=== PATIENT | female | born 1930 | race Caucasian/White ===

== ENCOUNTER 2016-05-11 12:49 | Emergency (ER) | payer OTHER, MEDICARE ==
[2016-05-11 13:04] VITALS: TEMP 97.9; BMI 30.2
[2016-05-11] MEDS ORDERED: ASPIRIN 81 MG CHEWABLE TABLETS PO ONE (13:18)
--- NOTE | 2016-05-11 13:22 | PDOC ---
History of Present Illness - General Chief Complaint: Chest Pain Stated Complaint: CHEST PAIN Time Seen by Provider: 05/11/16 13:17 - History of Present Illness Initial Comments: 05/11/16 13:24 Patient is an 86 year old female with underlying history of moderate obstructive CAD, HTN, basal cell CA, melanoma, history of multiple hip surgeries and hypothyroidism who presents to ED today complaining of chest pain that started around 2-3 hours ago. The pain is mid sternal, radiating to left upper extremity, it is constant, 8-9/10, no alleviating/aggravating factors, associated with diaphoresis. The pt has never had pain like that in the past. She denies trauma, fever, chills. She denies SOB, cough She denies abdominal pain, N/V, constipation, diarrhea. She denies dysuria, increased frequency, urgency. She denies lightheadedness, LOC. PCP: DR. Bere Evans Past History - Past Medical History Allergies/Adverse Reactions: Allergies Allergy/AdvReac Type Severity Reaction Status Date / Time codeine [Codeine] Allergy "TIGHTENING Verified 05/11/16 13:04 IN THROAT" meperidine HCl [From Demerol] Allergy "TIGHTENING Verified 05/11/16 13:04 IN THROAT" Home Medications: Ambulatory Orders Amitriptyline HCl [Elavil -] 25 mg PO TID 05/11/16 Diltiazem Cd [Cardizem Cd -] 240 mg PO DAILY 05/11/16 Levothyroxine [Synthroid -] 75 mcg PO DAILY 05/11/16 Olmesartan/Hydrochlorothiazide [Benicar Hct 20-12.5 mg Tablet] 1 each PO DAILY 05/11/16 Oxycodone HCl/Acetaminophen [Percocet 10-325 mg Tablet] 1 each PO Q4H PRN Tramadol HCl [Ultram] 50 mg PO Q4H 05/11/16 Anemia: Yes (IRON DEF) Asthma: No Cancer: Yes (MELENOMA) Cardiac Disorders: No CVA: No COPD: No CHF: No Dementia: No Diabetes: No GI Disorders: Yes (HIATAL HERNIA) Disorders: No HTN: Yes Hypercholesterolemia: No Liver Disease: No Seizures: No Thyroid Disease: Yes (HYPO) - Surgical History Abdominal Surgery: No Appendectomy: No Cardiac Surgery: No Cholecystectomy: No Lung Surgery: No Neurologic Surgery: No Orthopedic Surgery: Yes (LT HIP SX X2, RT HIP SX) - Psycho/Social/Smoking Cessation Hx Anxiety: No Suicidal Ideation: No Smoking Status: No Smoking History: Never smoked Number of Cigarettes Smoked Daily: 0 Information on smoking cessation initiated: No Hx Alcohol Use: No Drug/Substance Use Hx: No Substance Use Type: None Review of Systems - Review of Systems Able to Perform ROS?: Yes Comments:: 05/11/16 13:51 REVIEW OF SYSTEMS CONSTITUTIONAL: diaphoresis Absent: fever, chills, generalized weakness, malaise, loss of appetite, weight change HEENT: Absent: rhinorrhea, nasal congestion, throat pain, throat swelling, difficulty swallowing CARDIOVASCULAR: chest pain Absent: syncope, palpitations, irregular heart rate, lightheadedness, peripheral edema RESPIRATORY: Absent: cough, shortness of breath, dyspnea with exertion, orthopnea, wheezing GASTROINTESTINAL: Absent: abdominal pain, abdominal distension, nausea, vomiting, diarrhea, constipation GENITOURINARY: Absent: dysuria, frequency, urgency, hesitancy, hematuria, flank pain, genital pain MUSCULOSKELETAL: Absent: myalgia, arthralgia, joint swelling, back pain, neck pain SKIN: Absent: rash, itching, pallor HEMATOLOGIC/IMMUNOLOGIC: Absent: easy bleeding, easy bruising, lymphadenopathy, frequent infections ENDOCRINE: Absent: unexplained weight gain, unexplained weight loss, heat intolerance, cold intolerance NEUROLOGIC: Absent: headache, focal weakness or paresthesias, dizziness, unsteady gait, seizure PSYCHIATRIC: Absent: anxiety, depression Is the patient limited Samoan proficient: No *Physical Exam - Vital Signs Last Vital Signs Temp Pulse Resp BP Pulse Ox 97.9 F 92 H 18 160/84 95 05/11/16 13:01 05/11/16 13:01 05/11/16 13:01 05/11/16 13:01 05/11/16 13:01 - Physical Exam Comments: 05/11/16 14:27 GENERAL: The patient is awake, alert, and fully oriented, in no acute distress. HEAD: Normal with no signs of trauma. EYES: extraocular movements intact, sclera anicteric, conjunctiva clear. ENT: oropharynx clear without exudates, moist mucous membranes. NECK: Trachea midline, full range of motion, supple. LUNGS: Breath sounds equal, clear to auscultation bilaterally, no wheezes, no crackles, no accessory muscle use. HEART: Regular rate and rhythm, S1, S2 without murmur, rub or gallop. ABDOMEN: Soft, mild epigastric tenderness, nondistended, normoactive bowel sounds, no guarding, no rebound, no hepatosplenomegaly, no masses. EXTREMITIES: 2+ pulses, warm, well-perfused, no edema. NEUROLOGICAL: Normal speech, no facial asymmetry, gait not observed. PSYCH: Normal mood, normal affect. SKIN: Warm, dry, normal turgor, no rashes. Heart Score/ECG Review - History History: Moderately suspicious - Electrocardiogram EKG: Normal - Age Age: >/= 65 - Risk Factors Risk Factors Heart Score: Yes Hx Hypertension Based on the list above the patient has:: 1-2 risk factors - Troponin Troponin: </= normal limit - Score Heart Score - Total: 4 ED Treatment Course - LABORATORY CBC & Chemistry Diagram: 05/11/16 13:23 05/11/16 13:23 Medical Decision Making - Medical Decision Making 05/11/16 13:52 The pt is a 86 year old female who presents to ED complaining of chest pain. Differential diagnosis include: ACS, GERD, costochondritis. We ordered cardiac profile, CBC, CMP,UA, CXR, Mg, Oxygen, Aspirin. 05/11/16 14:22 Labs reviewed, elevated BUN, no elevated troponin. EKG: NSR at rate 90 bpm, no stacie/std, no NH prolongation, left axis deviation, QTC 415. CXR: no acute pathology. The pt requested pain medications for chronic hip pain. Percocet 5 mg was given. 05/11/16 14:53 We contacted who recommended obs-telemetry. We also ordered second troponin. 05/11/16 15:05 Contacted by again. He recommended to discharge the pt and f/u in his office tomorrow. 05/11/16 15:08 We recommend that the pt will stay in ED for the next troponin AT 16:30 05/11/16 17:59 Second troponin is negative. The pt is discharged home. *DC/Admit/Observation/Transfer Diagnosis at time of Disposition: Chest pain - Discharge Dispostion Condition at time of disposition: Good Admit: No - Referrals Referrals: Nathan Blackburn MD [Primary Care Provider] - - Patient Instructions Additional Instructions: Please see Dr. Blackburn tomorrow. If your symptoms worsen come back to emergency room as soon as possible.
[2016-05-11] MEDS ORDERED: ASPIRIN 81 MG CHEWABLE TABLETS ONE (13:38)
[2016-05-11 13:45] LABS: BASOPHIL 0.3 % (0-2.0); EOSINOPHIL 1.9 % (0-4.5); MCH 26.4 pg (25.7-33.7); MCHC 32.7 g/dl (32.0-36.0); MEAN CELL VOLUME 80.6 fl (80-96); MEAN PLT VOLUME 7.9 fl (7.5-11.1); NEUTROPHILS 69.4 % (42.8-82.8); PLATELET COUNT 304 K/MM3 (134-434); RDW 16.4 % (11.6-15.6); WHITE BLOOD COUNT 8.1 K/mm3 (4.0-10.0)
[2016-05-11] MEDS ORDERED: OXYCODONE/APAP 5/325MG COMBO TABLET PO ONE ×2 (13:56→14:59)
[2016-05-11 13:57] LABS: ANION GAP 11 (8-16); BILIRUBIN,TOTAL 0.3 mg/dL (0.2-1.0); CALCIUM 9.3 mg/dL (8.5-10.1); CO2 28 mmol/L (21-32); CREATININE 0.7 mg/dL (0.55-1.02); GLUCOSE,RANDOM 109 mg/dL (74-106); SGOT/AST 20 U/L (15-37); SGPT/ALT 24 U/L (12-78); TOT PROT 8.5 g/dl (6.4-8.2)
[2016-05-11 14:00] LABS: ALK PHOS 106 U/L (45-117); INR 0.99 (0.82-1.09); PROTHROMBIN TIME (PATIENT) 10.9 SEC (9.98-11.88); TROPONIN I < 0.02 ng/ml (0.00-0.05)
[2016-05-11] MEDS ORDERED: OXYCODONE/APAP 5/325MG COMBO TABLET ONE ×2 (14:03→15:40)
--- NOTE | 2016-05-11 14:09 | PDOC ---
Attending Attestation - Resident Resident Name: Janna Parmar - ED Attending Attestation I have performed the following: I have examined & evaluated the patient, The case was reviewed & discussed with the resident, I agree w/resident's findings & plan - HPI HPI: 05/11/16 15:19 86y F hx of moderately obstructive CAD, htn, basal cell ca, melanoma, multiple hip surgeries presents with chest pain that started approx 10:30, described as pressure like midsternal radiating to the LUE associated with some diaphoersis. Pt denies any n/v, sob, recent exertional symptoms. Pt notes she has had cath in the past but did not have any stents placed. Pts ekg showed a NSR. Pts trop x 1 is negative. Pt does not want to stay for observation - after extensive discussion she agreed to stay for a 2nd troponin at 4:30 (~6 hrs after onset of pain) if trop negative, will hav ept fu with dr. Hill as an outpatient. will continue cardiac monitiring here in the ED. Pts HEART score is 3 - Physicial Exam PE: 05/12/16 20:11 see above - Medical Decision Making 05/12/16 20:11 see above Heart Score/ECG Review - History History: Slightly suspicious - Electrocardiogram EKG: Normal - Age Age: >/= 65 - Risk Factors Risk Factors Heart Score: Yes Hx Hypertension Based on the list above the patient has:: 1-2 risk factors - Troponin Troponin: </= normal limit - Score Heart Score - Total: 3 - ECG Impressions Comment:: 05/11/16 15:23 Twelve-lead EKG was performed and reviewed by me. There is normal sinus rhythm with a normal rate. Rate of 90 The axis is normal. The intervals are normal. There is normal R wave progression There are no ST or T wave abnormalities. Impression: Normal twelve-lead EKG
[2016-05-11 18:11] VITALS: BP 155/88; PULSE 73
--- NOTE | 2016-05-12 17:38 | EKG ---
Test Reason : Blood Pressure : / mmHG Vent. Rate : 090 BPM Atrial Rate : 090 BPM P-R Int : 162 ms QRS Dur : 076 ms QT Int : 340 ms P-R-T Axes : 060 -04 041 degrees QTc Int : 415 ms NORMAL SINUS RHYTHM NORMAL ECG WHEN COMPARED WITH ECG OF 03-JAN-2014 20:28, NO SIGNIFICANT CHANGE WAS FOUND Confirmed by MELECIO MEDEROS MD ([id number]) on 05/12/2016 5:38:30 PM Referred By: Confirmed By:MELECIO MEDEROS MD
== END 2016-05-11 18:10 | disposition home or self-care (01) ==
LOC: JER 12:49
DX: R07.89 Other chest pain (principal); I25.10 Atherosclerotic heart disease of native coronary artery without angina pectoris; I10 Essential (primary) hypertension; E03.9 Hypothyroidism, unspecified; Z85.820 Personal history of malignant melanoma of skin
CPT/HCPCS: 36415; 71010-TC; 80053; 82550; 83735; 84484; 85025; 85610; 93005; 93010; 99284-25

== ENCOUNTER 2017-09-24 17:03 | Inpatient (IN) | payer OTHER, MEDICARE ==
--- NOTE | 2017-09-24 17:25 | PDOC ---
History of Present Illness <Danitza Hanna - Last Filed: 09/24/17 22:27> - History of Present Illness Initial Comments: The patient is an 87F with a history of HTN, hypothroidism, and diverticulosis who presents with 1d of N/V with associated diffuse achy/cramping abdominal pain that is worse in the upper abdomen. The pain reportedly radiates around her left flank towards her back. She endorses chronic back pain; however, this pain is different than her chronic pain. She also endorses chest pain 'across her chest' that does not radiate. She endorses subjective fevers. Denies diarrhea, dysuria, blood in her urine or stool. She denies changes in sensation. 09/24/17 18:06 <Logan Bustillos - Last Filed: 09/25/17 02:30> - General Stated Complaint: VOMITING Time Seen by Provider: 09/24/17 17:24 Past History <Danitza Hanna - Last Filed: 09/24/17 22:27> - Past Medical History Anemia: Yes (IRON DEF) Asthma: No Cancer: Yes (MELENOMA) Cardiac Disorders: No CVA: No COPD: No CHF: No Dementia: No Diabetes: No GI Disorders: Yes (HIATAL HERNIA) Disorders: No HTN: Yes Hypercholesterolemia: No Liver Disease: No Seizures: No Thyroid Disease: Yes (HYPO) - Surgical History Abdominal Surgery: No Appendectomy: No Cardiac Surgery: No Cholecystectomy: No Lung Surgery: No Neurologic Surgery: No Orthopedic Surgery: Yes (LT HIP SX X2, RT HIP SX) - Suicide/Smoking/Psychosocial Hx Smoking Status: No Smoking History: Never smoked Number of Cigarettes Smoked Daily: 0 Hx Alcohol Use: No Drug/Substance Use Hx: No Substance Use Type: None <Logan Bustillos - Last Filed: 09/25/17 02:30> - Past Medical History Allergies/Adverse Reactions: Allergies Allergy/AdvReac Type Severity Reaction Status Date / Time No Known Allergies Allergy Verified 09/24/17 18:26 Home Medications: Ambulatory Orders Levothyroxine Sodium [Levoxyl] 75 mcg PO DAILY 09/24/17 Oxycodone HCl/Acetaminophen [Percocet 5-325 mg Tablet] 1 tab PO Q6H 09/24/17 Review of Systems - Review of Systems Able to Perform ROS?: Yes Comments:: GENERAL/CONSTITUTIONAL: No fever or chills. No weakness HEAD, EYES, EARS, NOSE AND THROAT: No change in vision. No ear pain or discharge. No sore throat CARDIOVASCULAR: +chest pain; Denies SOB RESPIRATORY: No cough, wheezing, or hemoptysis GASTROINTESTINAL: per HPI GENITOURINARY: No dysuria, frequency, or change in urination MUSCULOSKELETAL: +Chronic back and hip pain SKIN: No rash NEUROLOGIC: No headache, vertigo, loss of consciousness, or change in strength/ sensation ENDOCRINE: No increased thirst. No abnormal weight change HEMATOLOGIC/LYMPHATIC: No anemia, easy bleeding, or history of blood clots ALLERGIC/IMMUNOLOGIC: No hives or skin allergy 09/24/17 18:14 Is the patient limited Macanese proficient: No <Logan Bustillos - Last Filed: 09/25/17 02:30> *Physical Exam - Vital Signs Last Vital Signs Temp Pulse Resp BP Pulse Ox 99.1 F 95 H 18 188/91 100 09/24/17 17:38 09/24/17 17:38 09/24/17 17:38 09/24/17 17:38 09/24/17 17:38 <Danitza Hanna - Last Filed: 09/24/17 22:27> - Physical Exam Comments: GENERAL: Awake, alert, and fully oriented, mild distress 2/2 pain HEAD: No signs of trauma, normocephalic, atraumatic EYES: PERRL, EOMI, b/l glaucoma, conjunctiva clear ENT: nares patent, oropharynx clear without exudates. Moist mucosa NECK: Normal ROM, supple, no lymphadenopathy LUNGS: No distress, speaks full sentences, clear to auscultation bilaterally HEART:Regular rate and rhythm, normal S1 and S2, no murmurs appreciated, peripheral pulses normal and equal bilaterally ABDOMEN: Diffuse TTP worse over upper abdomen with guarding, no rebound, mild distention. Not peritonitic. Normoactive bowel sounds. EXTREMITIES : Normal inspection, Normal range of motion, no edema. No clubbing or cyanosis NEUROLOGICAL: Cranial nerves II through XII grossly intact. Normal speech, no focal sensorimotor deficits SKIN: Warm, Dry, normal turgor 09/24/17 18:11 <Logan Bustillos - Last Filed: 09/25/17 02:30> ED Treatment Course - LABORATORY CBC & Chemistry Diagram: 09/24/17 18:16 09/24/17 18:16 - ADDITIONAL ORDERS Additional order review: Laboratory Results 09/24/17 09/24/17 09/24/17 21:50 18:16 18:16 Sodium 138 Potassium 4.3 Chloride 102 Carbon Dioxide 22 Anion Gap 14 BUN 23 H Creatinine 1.1 H Creat Clearance w eGFR 46.98 Random Glucose 189 H Calcium 9.9 Total Bilirubin 0.8 AST 22 ALT 20 Alkaline Phosphatase 88 Troponin I < 0.02 Total Protein 9.3 H Albumin 4.3 Lipase 55 L Urine Color Yellow Urine Appearance Clear Urine pH 5.0 Ur Specific [place] > 1.060 H Urine Protein 2+ H Urine Glucose (UA) Negative Urine Ketones Negative Urine Blood 1+ H Urine Nitrite Negative Urine Bilirubin Negative Urine Urobilinogen Negative Ur Leukocyte Esterase Negative Urine WBC (Auto) None Urine RBC (Auto) 3 Ur Epithelial Cells Rare 09/24/17 18:16 RBC 5.10 MCV 88.5 MCHC 33.5 RDW 13.2 D MPV 7.5 - Medications Given in the ED: ED Medications Discontinued Medications Generic Name Dose Route Start Last Admin Trade Name Montrellq PRN Reason Stop Dose Admin Acetaminophen 1,000 mg 09/24/17 17:38 09/24/17 18:25 Ofirmev Injection - IVPB 09/24/17 17:39 1,000 mg ONCE ONE Administration Morphine Sulfate 4 mg 09/24/17 17:53 09/24/17 18:25 Morphine Injection - IVPUSH 09/24/17 17:54 4 mg ONCE ONE Administration Ondansetron HCl 4 mg 09/24/17 17:38 09/24/17 18:25 Zofran Injection IVPUSH 09/24/17 17:39 4 mg ONCE ONE Administration Sodium Chloride 1,000 ml 09/24/17 17:38 09/24/17 18:25 Normal Saline - IV 09/24/17 17:39 1,000 ml ONCE ONE Administration <Danitza Hanna - Last Filed: 09/24/17 22:27> - LABORATORY CBC & Chemistry Diagram: 09/24/17 18:16 09/24/17 18:16 <Logan Bustillos - Last Filed: 09/25/17 02:30> Medical Decision Making - Medical Decision Making The patient is an 87F with a history of HTN, ED Course CMP, CBC, UA, UCx ECG, CT A&P RUQ POCUS 09/24/17 18:15 Trop I negative 09/24/17 19:42 Patient with continued N/V despite meds NGT placed Surgery Consulted, spoke with Dr. Carednas Plan for admission to Hospitalist Dispo: Admit to Hospitalist for SBO/PO intolerance 09/25/17 01:43 Repeat lactate 09/25/17 02:27 09/25/17 02:29 09/25/17 02:29 <Logan Bustillos - Last Filed: 09/25/17 02:30> *DC/Admit/Observation/Transfer - Discharge Dispostion Decision to Admit order: Yes <Danitza Hanna - Last Filed: 09/24/17 22:27> - Discharge Dispostion Decision to Admit order: Yes <Logan Bustillos - Last Filed: 09/25/17 02:30> Diagnosis at time of Disposition: Small bowel obstruction Abdominal pain Qualifiers: Abdominal location: generalized Qualified Code(s): R10.84 - Generalized abdominal pain - Discharge Dispostion Condition at time of disposition: Guarded
[2017-09-24] MEDS ORDERED: SODIUM CHLORIDE 0.9% 500 ML INFUS.BAG IV ONE ×2 (17:38→23:30)
[2017-09-24] MEDS ORDERED: ACETAMINOPHEN 1000 MG/100 ML VIAL (NON FORMULARY) IVPB ONE (17:38)
[2017-09-24] MEDS ORDERED: ONDANSETRON 4 MG/2 ML VIAL IVPUSH ONE ×2 (17:38→23:18)
[2017-09-24] MEDS ORDERED: morphine CARPU-JECT 4 MG/1 ML DISP.SYRIN IVPUSH ONE (17:53)
[2017-09-24] MEDS ORDERED: morphine SULFATE 4 MG/ML VIAL ONE (18:16)
[2017-09-24] MEDS ORDERED: ONDANSETRON 4 MG/2 ML VIAL ONE ×2 (18:17→23:38)
[2017-09-24] MEDS ORDERED: ACETAMINOPHEN INJECTION 100 ML IVPB ONE (18:17)
[2017-09-24 18:36] LABS: HEMATOCRIT 45.1 % (32.4-45.2); HEMOGLOBIN 15.1 GM/dL (10.7-15.3); MCH 29.6 pg (25.7-33.7); MCHC 33.5 g/dl (32.0-36.0); MEAN CELL VOLUME 88.5 fl (80-96); MEAN PLT VOLUME 7.5 fl (7.5-11.1); PLATELET COUNT 421 K/MM3 (134-434); RDW 13.2 % (11.6-15.6); WHITE BLOOD COUNT 12.8 K/mm3 (4.0-10.0)
[2017-09-24 19:07] LABS: ALBUMIN 4.3 g/dl (3.4-5.0); ALK PHOS 88 U/L (45-117); ANION GAP 14 (8-16); BILIRUBIN,TOTAL 0.8 mg/dL (0.2-1.0); BLOOD UREA NITROGEN 23 mg/dL (7-18); CALCIUM 9.9 mg/dL (8.5-10.1); CHLORIDE 102 mmol/L (98-107); CO2 22 mmol/L (21-32); CREATININE 1.1 mg/dL (0.55-1.02); GLUCOSE,RANDOM 189 mg/dL (74-106); LIPASE 55 U/L (73-393); POTASSIUM 4.3 mmol/L (3.5-5.1); SGOT/AST 22 U/L (15-37); SGPT/ALT 20 U/L (12-78); SODIUM 138 mmol/L (136-145); TOT PROT 9.3 g/dl (6.4-8.2)
--- NOTE | 2017-09-24 19:38 | PDOC ---
Attending Attestation - Resident Resident Name: [employer] - ED Attending Attestation I have performed the following: I have examined & evaluated the patient, The case was reviewed & discussed with the resident, I agree w/resident's findings & plan, Exceptions are as noted - HPI HPI: 09/24/17 19:32 87 yo F with h/o htn, diverticulosis, cholelithiasis here with c/o epigastric pain, n/v. pt has thrown up multiple times today. no f/c however felt warm. no urinary complaints. no mod factors, all emesis was bilious in color. also c/o abd distension. - Physicial Exam PE: 09/24/17 19:34 awake alert lungs clear bilaterally heart rrr no mrg. abd with mild distension, epigastric ttp. no rebound on guarding. skin warm and dry. - Medical Decision Making 09/24/17 19:35 87 yo F h/o HTN here with n/v abd pain. ttp on epigastric region and distension on exam. differential: cholecysitis, biliary colic, obstruction, pancreatitis, gastritis , infection such as uti, secondary dehydration. atypical angina. labs lipase ct a/p bedside us ruq, cxr ekg. antiemetics, iv hydration. pt will likley require admission for intractable .vomiting. focused ED ultrasound RUQ indication : h/o stones, pain r/o cholecystitis gallbladder scanned in two planes. limited finding due to body habitus. several gallstones noted. no percholecystic fluid, no wall thickening or edema. neg sonographic bautista's. cbd was 6.1 mm. impression: cholelithiasis.
[2017-09-24 22:00] LABS: URINE APPEARANCE CLEAR; URINE BILIRUBIN NEGATIVE (<2.0 mg/dL); URINE COLOR YELLOW; URINE GLUCOSE (UA) NEGATIVE (NEGATIVE); URINE KETONE NEGATIVE (NEGATIVE); URINE LEUK ESTERASE NEGATIVE (NEGATIVE); URINE NITRITE NEGATIVE (NEGATIVE); URINE UROBILINOGEN NEGATIVE mg/dL (0.2-1.0)
[2017-09-24 22:03] LABS: URINE PROTEIN 2+ (NEGATIVE)
[2017-09-24 22:04] LABS: EPI CELLS RARE /HPF (FEW)
--- NOTE | 2017-09-25 00:37 | PN ---
Teaching Attending Note Name of Resident: Lane Landeros ATTENDING PHYSICIAN STATEMENT I saw and evaluated the patient. I reviewed the resident's note and discussed the case with the resident. I agree with the resident's findings and plan as documented. SUBJECTIVE: Patient is an 87 year old woman with a history of HTN, hiatal hernia, bilateral hip replacement, basal cell cancer, melanoma, hypothroidism, and diverticulosis who presents with one day of abdominal pain, nausea and vomiting. Pain is diffuse, achy/cramping that is worse in the upper abdomen. The pain reportedly radiates around her left flank towards her back. She has chronic back pain; however, this pain is different than her chronic pain. She also has chest pain 'across her chest' that does not radiate as well as subjective fevers. Denies diarrhea, dysuria, blood in her urine or stool. OBJECTIVE: Alert Vital Signs Period Temp Pulse Resp BP Sys/Glass Pulse Ox Last 24 Hr 99.1 F 95 18 188/91 100 HEENT: No Jaundice, eye redness or discharge, PERRLA, EOMI. Normocephalic, atraumatic. External ears are normal and hearing is grossly intact. No nasal discharge. Neck: Supple, nontender. No palpable adenopathy or thyromegaly. No JVD Chest: Good effort. Clear to auscultation and percussion. Heart: Regular. No S3, rub or murmur Abdomen: Not distended, soft, upper abdominal tenderness and no HSM. No rebound or guarding. Normoactive bowel sounds. Ext: Peripheral pulses intact. No leg edema. Skin: Warm and dry. No petechiae, rash or ecchymosis. Neuro: Alert. Oriented x3. CN 2-12 grossly intact. Sensation grossly intact in all four extremities and DTR are symmetric. Home Medications Medication Instructions Recorded Levothyroxine Sodium [Levoxyl] 75 mcg PO DAILY 09/24/17 Oxycodone HCl/Acetaminophen 1 tab PO Q6H 09/24/17 [Percocet 5-325 mg Tablet] Abnormal Lab Results 09/24/17 09/24/17 09/24/17 18:16 18:16 18:16 WBC 12.8 H BUN 23 H Creatinine 1.1 H Random Glucose 189 H Lactic Acid Total Protein 9.3 H Lipase 55 L Ur Specific [place] Urine Protein Urine Blood 09/24/17 09/24/17 21:50 22:35 WBC BUN Creatinine Random Glucose Lactic Acid 2.6 H* Total Protein Lipase Ur Specific [place] > 1.060 H Urine Protein 2+ H Urine Blood 1+ H ASSESSMENT AND PLAN: 1. Small bowel obstruction - CT abdomen shows SBO, cholelithiasis and hepatic steatosis. No more vomiting. Significance of associated lactic acidosis and mild leukocytosis is unclear. Will do sepsis work up. Treat hypertension with IV hydralazine, give 0.45% Nacl and repeat CBC and lactic acid. If lactic acidosis and leukocytosis do not improve will start empiric antibiotics coverage for gall bladder/biliary infection. Surgery being consulted. 2. MEL - Very high urine SG suggests dehydration. Will hydrate gently. Avoid nephrotoxic agents such as NSAIDS, aminoglycosides, contrast dyes and certain Alternative medicine products. 3. DVT prophylaxis - Heparin 5000u sq tid. 4. Advance directives - Full code
[2017-09-25] MEDS ORDERED: SODIUM CHLORIDE 0.45% 1,000 ML IV SCH ×2 (01:30→05:30)
--- NOTE | 2017-09-25 01:36 | CONSULT ---
Consult Consult Specialty:: General surgery Reason for Consultation:: abdominal pain and vomiting - History of Present Illness Chief Complaint: Abdominal Pain History of Present Illness: 87yo female PMH HTN, hypothroidism, and diverticulosis who presents with 1 day of nausea and vomiting per her son. This was associated diffuse achy/cramping abdominal pain that is worse in the upper abdomen. She complains of Left lower quadrant pain when assessed. The pain reportedly radiates around her left flank towards her back. She endorses chronic back pain she is on pain medication for ; however, this pain is different than her chronic pain. She also endorses chest pain 'across her chest' that does not radiate. She endorses subjective fevers. Denies diarrhea, dysuria, blood in her urine or stool. She denies changes in sensation. She does not have a daily bowel movement. We were asked to assess. 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 No: Dementia, Migraine, Seizure, TIA Cardio/Vascular: Yes: CAD, HTN Gastrointestinal: Yes: Constipation. No: Cancer, Esophageal Varices, Pancreatitis Psych: Yes: Anxiety Musculoskeletal: Yes: Chronic low back pain, Osteoarthritis, Other (chronic hip pain post replacement and is opiate dependant.) - Alcohol/Substance Use Hx Alcohol Use: No - Smoking History Smoking history: Never smoked Aproximately how many cigarettes per day: 0 Home Medications - Allergies Allergies/Adverse Reactions: Allergies Allergy/AdvReac Type Severity Reaction Status Date / Time No Known Allergies Allergy Verified 09/24/17 18:26 - Home Medications Home Medications: Ambulatory Orders Levothyroxine Sodium [Levoxyl] 75 mcg PO DAILY 09/24/17 Oxycodone HCl/Acetaminophen [Percocet 5-325 mg Tablet] 1 tab PO Q6H 09/24/17 Review of Systems - Review of Systems Constitutional: denies: Chills, Fever Eyes: denies: Double Vision, Recent Change in Vision HENT: denies: Ear Discharge, Epistaxis Neck: denies: Lumps, Pain on Movement, Swollen Glands Cardiovascular: denies: Chest Pain, Palpitations Respiratory: denies: Cough, SOB Breasts: reports: No Symptoms Reported. denies: Pain Musculoskeletal: denies: Muscle Pain, Muscle Weakness Integumentary: denies: Erythema, Pallor, Rash Neurological: denies: Seizure, Syncope Endocrine: denies: Unexplained Weight Gain, Unexplained Weight Loss Hematology/Lymphatic: denies: Easily Bruised, Excessive Bleeding Psychiatric: denies: Anxiety, Depression Physical Exam Vital Signs: Vital Signs Temperature 100 F H 09/25/17 01:18 Pulse Rate 109 H 09/25/17 01:18 Respiratory Rate 21 09/25/17 01:18 Blood Pressure 198/90 09/25/17 01:18 O2 Sat by Pulse Oximetry (%) 100 09/24/17 17:38 Vital Signs Period Temp Pulse Resp BP Sys/Glass Pulse Ox Last 24 Hr 99.1 F-100 F 95-112 16-21 170-198/78-92 95-100 Constitutional: Yes: Well Nourished, No Distress, Calm Eyes: Yes: Conjunctiva Clear, EOM Intact HENT: Yes: Atraumatic, Normocephalic Neck: Yes: Supple, Trachea Midline Cardiovascular: Yes: Regular Rate and Rhythm, S1, S2 Respiratory: Yes: Regular, CTA Bilaterally Gastrointestinal: Yes: Normal Bowel Sounds, Soft. No: Tenderness, Tenderness, Epigastrium, Tenderness, Rebound ...Rectal Exam: Yes: Hemorrhoids/External, Sphincter Tone Normal, Other (pasty brown stool. some burdon removed and no blood noted.). No: Erythema, Mass Renal/: No: CVA Tenderness - Left, CVA Tenderness - Right Extremities: No: Cool, Cyanosis Neurological: Yes: Alert, Oriented Psychiatric: Yes: Alert, Oriented Labs: CBC, BMP 09/24/17 18:16 09/24/17 18:16 Imaging - Results X-ray: Report Reviewed, Image Reviewed Cat Scan: Report Reviewed, Image Reviewed (large hiatal hernia, no obstrting lession mid to distal SBO) Problem List - Problems (1) Small bowel obstruction Assessment/Plan: 87 yo female MMP with chronic constipation and fecal impaction of recto sigmoid. She will not likely require surgical intervention but would benefit from a manual disimpaction and an effective bowel regimen. Agree with transfer to ICU NPO and IVF hydration HOB to 30deg NGT decompression prn GI evaluation for endoscopy Adequate analgesia (preferably non-narcotic) enemas trend labs and correct electrolytes Serial abdominal exams Repeat abdominal xray tomorrow will follow This patient is in guarded but stable condition. Time spent reviewing chart, examining patient, talking with providers and/or family and documentation is 35 minutes. Thank you for the opportunity to participate in the care of this patient. 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
[2017-09-25] MEDS ORDERED: morphine SULFATE 4 MG/ML VIAL IVPUSH ONE (01:38)
--- NOTE | 2017-09-25 01:40 | HP ---
CHIEF COMPLAINT: nausea/vomiting associated with abdominal pain PCP: HISTORY OF PRESENT ILLNESS: 87F w/ pmhx of b/l hip surgeries, hypothyroidism, HTN, hiatal hernia, basal cell cancer, melanoma, and diverticulosis presented with a 1 day history of diffuse abdominal pain associated with nausea and vomiting. Pt states pain is worse in the upper abdomen. During exam, pt was lethargic and history was difficult to obtain. Pt repeatedly mentioned not wanting to undergo any more procedures per Dr. Nixon's request. Pt persistently complained of abdominal pain. ER course was notable for: (1)IV Morphine 4mg, Tylenol, Ibuprofen, Zofran (2) CTAP showed SBO (3) Recent Travel: PAST MEDICAL HISTORY: PAST SURGICAL HISTORY: Social History: Smoking: Alcohol: Drugs: Family History: Allergies No Known Allergies Allergy (Verified 09/24/17 18:26) HOME MEDICATIONS: Home Medications Medication Instructions Recorded Levothyroxine Sodium [Levoxyl] 75 mcg PO DAILY 09/24/17 Oxycodone HCl/Acetaminophen 1 tab PO Q6H 09/24/17 [Percocet 5-325 mg Tablet] REVIEW OF SYSTEMS CONSTITUTIONAL: Absent: fever, chills, diaphoresis, generalized weakness, malaise, CARDIOVASCULAR: Absent: chest pain, syncope, palpitations, irregular heart rate RESPIRATORY: Absent: cough, shortness of breath, dyspnea with exertion, orthopnea, wheezing, stridor, hemoptysis GASTROINTESTINAL: persisent generalized abdominal pain with distension, nausea, vomiting Absent: diarrhea, constipation, melena, hematochezia GENITOURINARY: L flank pain Absent: dysuria, frequency, urgency, hesitancy, hematuria, genital pain SKIN: Absent: rash, itching, pallor NEUROLOGIC: Absent: headache, focal weakness or paresthesias, dizziness, unsteady gait, seizure, mental status changes, bladder or bowel incontinence PHYSICAL EXAMINATION Active Medications Heparin Sodium (Porcine) (Heparin -) 5,000 unit SQ BID SCHHydralazine HCl ( Apresoline Injection -) 5 mg IVPUSH Q6H PRN PRN Reason: HYPERTENSION Last Admin: 09/25/17 03:05 Dose: 5 mg Sodium Chloride (1/2 Normal Saline) 1,000 mls @ 75 mls/hr IV ASDIR JN Levothyroxine Sodium (Synthroid Injection -) 37.5 mcg IVPUSH DAILY JN Vital Signs - 24 hr 09/24/17 09/25/17 17:38 01:18 Temperature 99.1 F 100 F H Pulse Rate 95 H Pulse Rate [ 109 H Right Brachial] Respiratory 18 21 Rate Blood Pressure 188/91 Blood Pressure 198/90 [Right Arm] O2 Sat by Pulse 100 Oximetry (%) GENERAL: AAOx3. Moderate distress. HEENT: AT/NC. Dry. NECK: supple without lymphadenopathy, JVD, or masses. LUNGS: Clear to auscultation anteriorly. Unable to auscultate posteriorly as patient is uncooperative due to pain. HEART: Tachycardic. Normal S1, S2. No murmurs, rubs, gallop noted. ABDOMEN: Widely distended, tender. -BS. MUSCULOSKELETAL: No peripheral edema noted. UPPER EXTREMITIES: 2+ pulses, warm, well-perfused. No cyanosis. No clubbing. Unable to assess muscle strength. LOWER EXTREMITIES: 2+ pulses, warm, well-perfused. No calf tenderness. Unable to assess muscle strength. NEUROLOGICAL: Normal speech. SKIN: Warm, dry, normal turgor, no rashes or lesions noted, normal capillary refill. Laboratory Results - last 24 hr 09/24/17 09/24/17 09/24/17 18:16 18:16 18:16 WBC 12.8 H RBC 5.10 Hgb 15.1 Hct 45.1 D MCV 88.5 MCH 29.6 D MCHC 33.5 RDW 13.2 D Plt Count 421 D MPV 7.5 Sodium 138 Potassium 4.3 Chloride 102 Carbon Dioxide 22 Anion Gap 14 BUN 23 H Creatinine 1.1 H Creat Clearance w eGFR 46.98 Random Glucose 189 H Lactic Acid Calcium 9.9 Total Bilirubin 0.8 AST 22 ALT 20 Alkaline Phosphatase 88 Troponin I < 0.02 Total Protein 9.3 H Albumin 4.3 Lipase 55 L Urine Color Urine Appearance Urine pH Ur Specific [place] Urine Protein Urine Glucose (UA) Urine Ketones Urine Blood Urine Nitrite Urine Bilirubin Urine Urobilinogen Ur Leukocyte Esterase Urine WBC (Auto) Urine RBC (Auto) Ur Epithelial Cells 09/24/17 09/24/17 21:50 22:35 WBC RBC Hgb Hct MCV MCH MCHC RDW Plt Count MPV Sodium Potassium Chloride Carbon Dioxide Anion Gap BUN Creatinine Creat Clearance w eGFR Random Glucose Lactic Acid 2.6 H* Calcium Total Bilirubin AST ALT Alkaline Phosphatase Troponin I Total Protein Albumin Lipase Urine Color Yellow Urine Appearance Clear Urine pH 5.0 Ur Specific [place] > 1.060 H Urine Protein 2+ H Urine Glucose (UA) Negative Urine Ketones Negative Urine Blood 1+ H Urine Nitrite Negative Urine Bilirubin Negative Urine Urobilinogen Negative Ur Leukocyte Esterase Negative Urine WBC (Auto) None Urine RBC (Auto) 3 Ur Epithelial Cells Rare IMAGING: CTAP: recurrent SBO w/ transition zone in central/R paramedian aspect of lower abdomen. Maximum dilated SB luminal diameter about 7.4 cm; focal calcification in region of GB fundus which may represent calculus vs. wall calcification. Probably diffuse hepatic steatosis. No evidence of acute diverticulitis. Cholelithiasis vs. prominent GB wall calcification. CXR: Since the prior study of 05/11/2016, there is a larger heart with large hiatal hernia, sclerotic knob , weak or inspiration and central congestive changes with some minimal atelectatic changes at the bases. The soft tissues are intact. There are degenerative changes. ASSESSMENT/PLAN: 87F w/ pmhx of HTN, hypothyroidism, diverticulosis, melanoma, basal cell carcinoma, and hiatal hernia presented with 1 day h/o nausea and vomiting associated with abdominal pain. #SBO; -NG tube placed twice, but removed by patient. Pt not currently vomiting. Replace NG tube to for decompression -Morphine 4 mg Q6H for pain -NPO -f/u surg recs -f/u GI recs #Leukocytosis w/ elevated lactate; likely reactive to current clinical condition. -Pt is afebrile, with resolved WBC -repeat lactate 2.6, still elevated; trend lactate -urine cx pending -f/u lactate and CBC for signs of worsening infection; High potential for gall bladder/biliary infection given CTAP results; can consider starting empiric antibiotic coverage, await surg/GI recs #MEL; Cr 1.1 -likely due to dehydration as pt has poor PO intake and now NPO -avoid nephrotoxic meds -gentle hydration with 1/2NS @75cc/hr #HTN -Hydralazine 5 mg IV Q6H, if systolic BP >160 -cont to monitor BP #Hypothyroidism -Levothyroxine 37.5 mcg IVP QD #DVT Ppx -Heparin 5000U SQ TID #FEN -1/2NS @ 75cc/hr -recheck lytes in AM -NPO dispo -full code Visit type - Emergency Visit Emergency Visit: Yes ED Registration Date: 09/24/17 Care time: The patient presented to the Emergency Department on the above date and was hospitalized for further evaluation of their emergent condition. - New Patient This patient is new to me today: Yes Date on this admission: 09/25/17 - Critical Care Critical Care patient: No Hospitalist Screening - Colonoscopy Questionnaire Colonoscopy Questionnaire: Colonoscopy Questionnaire - Patient: 50 - 75 years old and never had a screening colonoscopy: Unknown History of colon or rectal polyps, or CA: Unknown History of IBD, Crohn's disease or UC: Unknown History of abdominal radiation therapy as a child: Unknown - Relative: 1 with colon or rectal CA, or polyps at age 60 or younger: Unknown Colon or rectal CA diagnosed at age 45 or younger: Unknown Multiple relatives with colon or rectal CA: Unknown - Outcome: Screening Result: Negative Screen
[2017-09-25] MEDS ORDERED: morphine SULFATE 4 MG/ML VIAL ONE (01:51)
[2017-09-25] MEDS ORDERED: hydrALAZINE HCL 20 MG/ML VIAL ONE (03:02)
[2017-09-25] MEDS: hydrALAZINE HCL 20 MG/ML VIAL IVPUSH PRN ×3 (03:05→14:39)
[2017-09-25 03:42] LABS: HEMATOCRIT 39.9 % (32.4-45.2); HEMOGLOBIN 13.5 GM/dL (10.7-15.3); MCH 30.1 pg (25.7-33.7); MCHC 33.8 g/dl (32.0-36.0); MEAN CELL VOLUME 88.9 fl (80-96); MEAN PLT VOLUME 7.5 fl (7.5-11.1); PLATELET COUNT 330 K/MM3 (134-434); RBC 4.48 M/mm3 (3.60-5.2); WHITE BLOOD COUNT 9.5 K/mm3 (4.0-10.0)
--- NOTE | 2017-09-25 09:43 | CON.PULM ---
Consult Consult Specialty:: PULMONARY Referred by:: RAMU Reason for Consultation:: SBO/COPD - History of Present Illness Chief Complaint: ABD PAIN N/V History of Present Illness: Patient is an 87 year old woman with a history of HTN, hiatal hernia, bilateral hip replacement, basal cell cancer, melanoma, hypothroidism, and diverticulosis chronic pain syndrome and opiate addicted who presents with one day of abdominal pain, nausea and vomiting. Pain is diffuse, achy/cramping that is worse in the upper abdomen. The pain reportedly radiates around her left flank towards her back. She has chronic back pain; however, this pain is different than her chronic pain. She also has chest pain 'across her chest' that does not radiate as well as subjective fevers. 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 No: Alzheimer's, Dementia, Migraine, Seizure, TIA Cardio/Vascular: Yes: CAD, HTN. No: AFIB, CHF, ME Pulmonary: No: Asthma, COPD, O2 Dependent, Pneumonia Gastrointestinal: Yes: Constipation, Other (opiate induced constipation). No: Ascites, Cancer, Esophageal Varices, Pancreatitis Hepatobiliary: No: Cirrhosis Renal/: No: Renal Failure Reproductive: Yes: Postmenopausal Heme/Onc: No: Anemia, Bleeding Disorder Infectious Disease: No: AIDS, C-Diff, HIV Psych: Yes: Anxiety, Depression Musculoskeletal: Yes: Chronic low back pain, Osteoarthritis, Other (chronic hip pain post replacement and is opiate dependant.) Rheumatology: No: Fibromyalgia, Rheumatoid Arthritis ENT: No: Allergic Rhinitis Endocrine: Yes: Hypothyroidism. No: David's Disease, Diabetes Mellitus - Past Surgical History Past Surgical History: Yes: Joint Replacement - Alcohol/Substance Use Hx Alcohol Use: No - Smoking History Smoking history: Never smoked Aproximately how many cigarettes per day: 0 - Social History Usual Living Arrangement: With Spouse ADL: Family Assistance Place of : [facility] History of Recent Travel: No Home Medications - Allergies Allergies/Adverse Reactions: Allergies Allergy/AdvReac Type Severity Reaction Status Date / Time No Known Allergies Allergy Verified 09/24/17 18:26 - Home Medications Home Medications: Ambulatory Orders Levothyroxine Sodium [Levoxyl] 75 mcg PO DAILY 09/24/17 Oxycodone HCl/Acetaminophen [Percocet 5-325 mg Tablet] 1 tab PO Q6H 09/24/17 Family Disease History - Family Disease History Family History: Unremarkable Review of Systems - Review of Systems Constitutional: reports: Lethargy, Loss of Appetite, Weakness. denies: Fever Eyes: reports: No Symptoms HENT: denies: Difficult Swallowing Neck: reports: No Symptoms Cardiovascular: reports: No Symptoms Respiratory: reports: No Symptoms Gastrointestinal: reports: Abdominal Pain, Bloating, Constipation, Indigestion, Nausea, Vomiting. denies: Rectal Bleeding, Vomiting Blood Genitourinary: reports: No Symptoms Breasts: reports: No Symptoms Reported Musculoskeletal: reports: Back Pain, Joint Pain Integumentary: reports: No Symptoms Neurological: reports: No Symptoms Endocrine: reports: No Symptoms Hematology/Lymphatic: reports: No Symptoms Psychiatric: reports: No Symptoms Physical Exam Vital Sings: Vital Signs Temperature 100 F H 09/25/17 04:40 Pulse Rate 110 H 09/25/17 06:21 Respiratory Rate 18 09/25/17 06:21 Blood Pressure 170/91 09/25/17 06:21 O2 Sat by Pulse Oximetry (%) 97 09/25/17 06:21 Constitutional: Yes: Anxious, Moderate Distress Eyes: Yes: EOM Intact HENT: Yes: Normocephalic Neck: Yes: Trachea Midline Cardiovascular: Yes: Regular Rate and Rhythm Respiratory: Yes: CTA Bilaterally Gastrointestinal: Yes: Hypoactive Bowel Sounds, Tenderness, Epigastrium. No: Normal Bowel Sounds, Ascites, Hernia, Tenderness, Rebound Renal/: Yes: WNL Breast(s): Yes: WNL Musculoskeletal: Yes: WNL Extremities: Yes: WNL Edema: No Integumentary: Yes: WNL Neurological: Yes: Alert Labs: CBC, BMP 09/25/17 03:30 09/24/17 18:16 lactic acid 3.1 Imaging - Results Chest X-ray: Report Reviewed, Image Reviewed X-ray: Report Reviewed, Image Reviewed Cat Scan: Report Reviewed, Image Reviewed Problem List - Problems (1) Hypertension Code(s): I10 - ESSENTIAL (PRIMARY) HYPERTENSION (2) Abdominal pain Code(s): R10.9 - UNSPECIFIED ABDOMINAL PAIN Qualifiers: Abdominal location: generalized Qualified Code(s): R10.84 - Generalized abdominal pain (3) Small bowel obstruction Code(s): K56.609 - UNSP INTESTNL OBST, UNSP TO PARTIAL VERSUS COMPLETE OBST (4) Hypothyroidism Code(s): E03.9 - HYPOTHYROIDISM, UNSPECIFIED Assessment/Plan 87 WHITE FEMALE WITH ACUTE SBO ADMITTED LAST PM VIA ER CHRONIC OPIATE INDUCED CONSTIPATION ELEVATED LACTIC ACID HTN CHRONIC PAIN SYNDROME DUE TO MULTIPLE HIP REPLACEMENTS AND REVISIONS OPIATE DEPENDANT HYPOTHYROIDISM NGT X 2 REMOVED BY PATIENT HAS NOT VOMITED THIS AM/CONTINUES TO HAVE ABD CRAMPING PAIN WILL TRANSFER TO ICU GI CONSULT PENDING CONTINUE NPO/IV FLUIDS/WILL NEED LARGE BOWEL CLEANSE IDEALLY NGT SHOUD BE REPLACED DANGER OF OPIATE WITHDRAWALS PT IS NPO PAIN MANAGEMENT King HEWITT MD
[2017-09-25] MEDS: HEPARIN NA (PORCINE) 5,000 UNITS/ML 1ML VIAL SQ SCH ×2 (10:01→22:23)
[2017-09-25] MEDS ORDERED: BISACODYL 10 MG SUPP.RECT RC PRN (10:22)
[2017-09-25] MEDS: LEVOTHYROXINE SODIUM 100 MCG VIAL IVPUSH SCH (10:57)
[2017-09-25] MEDS: MORPHINE SULFATE 2 MG/ML VIAL IVPUSH PRN ×3 (10:57→20:07)
--- NOTE | 2017-09-25 11:54 | HOSP ---
Subjective - Review of Symptoms Events since last encounter: Patient is c/o having abdominal pain. Vital Signs Temperature 98.9 F 09/25/17 09:48 Pulse Rate 102 H 09/25/17 09:48 Respiratory Rate 18 09/25/17 09:48 Blood Pressure 155/85 09/25/17 09:48 O2 Sat by Pulse Oximetry (%) 96 09/25/17 10:06 GENERAL: AAOx3. in NAD . HEENT: AT/NC. Dry. NECK: supple without lymphadenopathy, JVD, or masses. LUNGS: Clear to auscultation anteriorly. HEART: Mild tachycardia . Normal S1, S2. SEM2/6 ,no rubs, or gallop noted. ABDOMEN: soft , NT , positive for BS. MUSCULOSKELETAL: No peripheral edema noted. EXTREMITIES: 2+ pulses, warm, well-perfused. No cyanosis. No clubbing. NEUROLOGICAL: Normal speech. SKIN: Warm, dry, normal turgor, no rashes or lesions noted, normal capillary refill. CBCD WBC 9.5 K/mm3 (4.0-10.0) 09/25/17 03:30 RBC 4.48 M/mm3 (3.60-5.2) 09/25/17 03:30 Hgb 13.5 GM/dL (10.7-15.3) 09/25/17 03:30 Hct 39.9 % (32.4-45.2) 09/25/17 03:30 MCV 88.9 fl (80-96) 09/25/17 03:30 MCHC 33.8 g/dl (32.0-36.0) 09/25/17 03:30 RDW 13.0 % (11.6-15.6) 09/25/17 03:30 Plt Count 330 K/MM3 (134-434) D 09/25/17 03:30 MPV 7.5 fl (7.5-11.1) 09/25/17 03:30 CMP Sodium 138 mmol/L (136-145) 09/24/17 18:16 Potassium 4.3 mmol/L (3.5-5.1) 09/24/17 18:16 Chloride 102 mmol/L (98-107) 09/24/17 18:16 Carbon Dioxide 22 mmol/L (21-32) 09/24/17 18:16 Anion Gap 14 (8-16) 09/24/17 18:16 BUN 23 mg/dL (7-18) H 09/24/17 18:16 Creatinine 1.1 mg/dL (0.55-1.02) H 09/24/17 18:16 Creat Clearance w eGFR 46.98 (>60) 09/24/17 18:16 Random Glucose 189 mg/dL (74-106) H 09/24/17 18:16 Calcium 9.9 mg/dL (8.5-10.1) 09/24/17 18:16 Total Bilirubin 0.8 mg/dL (0.2-1.0) 09/24/17 18:16 AST 22 U/L (15-37) 09/24/17 18:16 ALT 20 U/L (12-78) 09/24/17 18:16 Alkaline Phosphatase 88 U/L (45-117) 09/24/17 18:16 Total Protein 9.3 g/dl (6.4-8.2) H 09/24/17 18:16 Albumin 4.3 g/dl (3.4-5.0) 09/24/17 18:16 CARDIAC ENZYMES Troponin I < 0.02 ng/ml (0.00-0.05) 09/24/17 18:16 Current Medications Generic Name Dose Route Start Last Admin Trade Name Freq PRN Reason Stop Dose Admin Bisacodyl 10 mg 09/25/17 10:22 09/25/17 10:57 Dulcolax Suppository - RC 10 mg DAILY PRN Administration CONSTIPATION Heparin Sodium (Porcine) 5,000 unit 09/25/17 10:00 09/25/17 10:01 Heparin - SQ 5,000 unit BID JN Administration Hydralazine HCl 5 mg 09/25/17 01:45 09/25/17 06:31 Apresoline Injection - IVPUSH 5 mg Q6H PRN Administration HYPERTENSION Sodium Chloride 1,000 mls @ 75 mls/hr 09/25/17 05:30 09/25/17 05:32 1/2 Normal Saline IV 75 mls/hr ASDIR JN Administration Levothyroxine Sodium 37.5 mcg 09/25/17 10:00 09/25/17 10:57 Synthroid Injection - IVPUSH 37.5 mcg DAILY JN Administration Morphine Sulfate 1 mg 09/25/17 09:55 09/25/17 10:57 Morphine Sulfate IVPUSH 1 mg Q4H PRN Administration PAIN LEVEL 6-10 Home Medications Medication Instructions Recorded Levothyroxine Sodium [Levoxyl] 75 mcg PO DAILY 09/24/17 Oxycodone HCl/Acetaminophen 1 tab PO Q6H 09/24/17 [Percocet 5-325 mg Tablet] IMAGING: CTAP: recurrent SBO w/ transition zone in central/R paramedian aspect of lower abdomen. Maximum dilated SB luminal diameter about 7.4 cm; focal calcification in region of GB fundus which may represent calculus vs. wall calcification. Probably diffuse hepatic steatosis. No evidence of acute diverticulitis. Cholelithiasis vs. prominent GB wall calcification. CXR: Since the prior study of 05/11/2016, there is a larger heart with large hiatal hernia, sclerotic knob , weak or inspiration and central congestive changes with some minimal atelectatic changes at the bases. The soft tissues are intact. There are degenerative changes. ASSESSMENT/PLAN: Patient is an 87yo female with pmhx of HTN, hypothyroidism, diverticulosis, melanoma, basal cell carcinoma, and hiatal hernia presented with abdominal pain with nausea and vomiting x 1 day and was found to have SBO on CTAP # Small bowel obstruction - NPO, IVF, NG tube but patient pulled the NG tube, patient is on Morphine IV prn. # MEL - Very high urine SG suggests dehydration. Will hydrate gently iVF continue. DVT prophylaxis - Heparin 5000u sq tid. Advance directives - Full code Physical Examination Vital Signs: Vital Signs Temperature 98.9 F 09/25/17 09:48 Pulse Rate 102 H 09/25/17 09:48 Respiratory Rate 18 09/25/17 09:48 Blood Pressure 155/85 09/25/17 09:48 O2 Sat by Pulse Oximetry (%) 96 09/25/17 10:06 Labs: CBC, BMP 09/25/17 03:30 09/24/17 18:16
--- NOTE | 2017-09-25 14:11 | CON.GI ---
Consult Consult Specialty:: Gastroenterology Referred by:: Dr. Nathan Blackburn Reason for Consultation:: Vomiting and abdominal pain - History of Present Illness Chief Complaint: Bilious vomiting and diffuse colicky abdominal pain History of Present Illness: 87F is admitted with bilious vomiting and diffuse colicky abdominal pain. She also has chronic constipation and takes opiod analgesics chronically. She admits to a fiber poor diet. CT scan reveals an SBO with a transition point. Jens had a colonoscopy with my associate, Dr Aldair Gutierrez remotely and tells me that she had benign polyps removed. She also had an EGD revealing a hiatal hernia. 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 Cherelle Salazar. 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 Left check melanoma excisions. 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 Place of : [facility] History of Recent Travel: No Home Medications - Allergies Allergies/Adverse Reactions: Allergies Allergy/AdvReac Type Severity Reaction Status Date / Time No Known Allergies Allergy Verified 09/24/17 18:26 - Home Medications Home Medications: Ambulatory Orders Levothyroxine Sodium [Levoxyl] 75 mcg PO DAILY 09/24/17 Oxycodone HCl/Acetaminophen [Percocet 5-325 mg Tablet] 1 tab PO Q6H 09/24/17 Family Disease History - Family Disease History Family Disease History: Heart Disease: Mother ( CHF age 77), CA: Father ( lung cancer in his 60's) Review of Systems - Review of Systems Constitutional: reports: Chills Eyes: reports: No Symptoms HENT: reports: No Symptoms Neck: reports: No Symptoms Cardiovascular: reports: No Symptoms Respiratory: reports: No Symptoms Gastrointestinal: reports: Constipation Genitourinary: reports: No Symptoms Musculoskeletal: reports: Back Pain, Joint Pain Psychiatric: reports: Anxiety Physical Exam-GI Vital Signs: Vital Signs Temperature 98.3 F 09/25/17 13:00 Pulse Rate 106 H 09/25/17 13:00 Respiratory Rate 19 09/25/17 13:00 Blood Pressure 174/84 09/25/17 13:00 O2 Sat by Pulse Oximetry (%) 99 09/25/17 13:00 CBC,CMP WBC 9.5 K/mm3 (4.0-10.0) 09/25/17 03:30 RBC 4.48 M/mm3 (3.60-5.2) 09/25/17 03:30 Hgb 13.5 GM/dL (10.7-15.3) 09/25/17 03:30 Hct 39.9 % (32.4-45.2) 09/25/17 03:30 MCV 88.9 fl (80-96) 09/25/17 03:30 MCH 30.1 pg (25.7-33.7) 09/25/17 03:30 MCHC 33.8 g/dl (32.0-36.0) 09/25/17 03:30 RDW 13.0 % (11.6-15.6) 09/25/17 03:30 Plt Count 330 K/MM3 (134-434) D 09/25/17 03:30 MPV 7.5 fl (7.5-11.1) 09/25/17 03:30 Sodium 138 mmol/L (136-145) 09/24/17 18:16 Potassium 4.3 mmol/L (3.5-5.1) 09/24/17 18:16 Chloride 102 mmol/L (98-107) 09/24/17 18:16 Carbon Dioxide 22 mmol/L (21-32) 09/24/17 18:16 Anion Gap 14 (8-16) 09/24/17 18:16 BUN 23 mg/dL (7-18) H 18 18:16 Creatinine 1.1 mg/dL (0.55-1.02) H 09/24/17 18:16 Creat Clearance w eGFR 46.98 (>60) 09/24/17 18:16 Random Glucose 189 mg/dL (74-106) H 09/24/17 18:16 Lactic Acid 2.6 mmol/L (0.0-2.0) H* 09/25/17 03:30 Calcium 9.9 mg/dL (8.5-10.1) 09/24/17 18:16 Total Bilirubin 0.8 mg/dL (0.2-1.0) 09/24/17 18:16 AST 22 U/L (15-37) 09/24/17 18:16 ALT 20 U/L (12-78) 09/24/17 18:16 Alkaline Phosphatase 88 U/L (45-117) 09/24/17 18:16 Troponin I < 0.02 ng/ml (0.00-0.05) 09/24/17 18:16 Total Protein 9.3 g/dl (6.4-8.2) H 09/24/17 18:16 Albumin 4.3 g/dl (3.4-5.0) 09/24/17 18:16 Lipase 55 U/L (73-393) L 09/24/17 18:16 Current Medications Generic Name Dose Route Start Last Admin Trade Name Freq PRN Reason Stop Dose Admin Bisacodyl 10 mg 09/25/17 10:22 09/25/17 10:57 Dulcolax Suppository - RC 10 mg DAILY PRN Administration CONSTIPATION Heparin Sodium (Porcine) 5,000 unit 09/25/17 10:00 09/25/17 10:01 Heparin - SQ 5,000 unit BID JN Administration Hydralazine HCl 5 mg 09/25/17 01:45 09/25/17 06:31 Apresoline Injection - IVPUSH 5 mg Q6H PRN Administration HYPERTENSION Sodium Chloride 1,000 mls @ 75 mls/hr 09/25/17 05:30 09/25/17 05:32 1/2 Normal Saline IV 75 mls/hr ASDIR JN Administration Levothyroxine Sodium 37.5 mcg 09/25/17 10:00 09/25/17 10:57 Synthroid Injection - IVPUSH 37.5 mcg DAILY JN Administration Morphine Sulfate 1 mg 09/25/17 09:55 09/25/17 10:57 Morphine Sulfate IVPUSH 1 mg Q4H PRN Administration PAIN LEVEL 6-10 Constitutional: Yes: Calm Eyes: Yes: Conjunctiva Clear, Other (legally blind left eye) HENT: Yes: Atraumatic, Normocephalic Neck: Yes: Supple Cardiovascular: Yes: Regular Rate and Rhythm Respiratory: Yes: CTA Bilaterally Gastrointestinal Inspection: Yes: Distention ...Auscultate: Yes: Normoactive Bowel Sounds ...Palpate: Yes: Soft, Other (diffuse mild nonlocalizing tenderness) ...Rectal Exam: Yes: Guaiac Negative (minimal brown guaiac negative stool ( had been disempacted earlier by Dr Cardenas)) Musculoskeletal: Yes: Back Pain Edema: No Peripheral Pulses WNL: Yes Neurological: Yes: Alert, Oriented Labs: CBC, BMP 09/25/17 03:30 09/24/17 18:16 Laboratory Tests 09/24/17 09/24/17 09/24/17 18:16 18:16 18:16 WBC 12.8 H BUN 23 H Creatinine 1.1 H Lactic Acid Total Bilirubin 0.8 AST 22 ALT 20 Alkaline Phosphatase 88 Lipase 55 L 09/24/17 09/25/17 09/25/17 22:35 01:51 03:30 WBC 9.5 BUN Creatinine Lactic Acid 2.6 H* 3.1 H* Total Bilirubin AST ALT Alkaline Phosphatase Lipase 09/25/17 03:30 WBC BUN Creatinine Lactic Acid 2.6 H* Total Bilirubin AST ALT Alkaline Phosphatase Lipase Problem List - Problems (1) Small bowel obstruction Assessment/Plan: The CT scan confirms a partial SBO with a transition point perhaps reflecting a congenital band or internal hernia which appears to be resolving without NG suctioning following Dr Cardenas rectal disempaction. This suggests a role for fecal impaction which will be lavaged when a clear liquid diet can be attempted , hopefully tomorrow. I have discussed the need to minimize her opioid intake, to adopt a high fiber diet and to use Miralax daily with Tatiana and her daughter. I have discussed the case with Dr [place]. Code(s): K56.609 - UNSP INTESTNL OBST, UNSP TO PARTIAL VERSUS COMPLETE OBST (2) History of colon polyps Code(s): Z86.010 - PERSONAL HISTORY OF COLONIC POLYPS (3) Constipation due to opioid therapy Code(s): K59.03 - DRUG INDUCED CONSTIPATION; T40.2X5A - ADVERSE EFFECT OF OTHER OPIOIDS, INITIAL ENCOUNTER (4) Hiatal hernia Code(s): K44.9 - DIAPHRAGMATIC HERNIA WITHOUT OBSTRUCTION OR GANGRENE (5) Macular degeneration Code(s): H35.30 - UNSPECIFIED MACULAR DEGENERATION
--- NOTE | 2017-09-25 15:22 | CONSULT ---
Consultation: REQUESTING PROVIDER: CONSULT REQUEST: We have been asked to medically evaluate this patient for ( specify). HISTORY OF PRESENT ILLNESS: This is an 87 yo F with PMH of diverticulosis, constipation, chronic oxycodone user, prior colonoscopy with polypectomy, melanoma, HTN, hypothroidism, who presents with n/bilious v and diffuse cramping abd pain x 1 d. He abd pain is most severe is LLQ and radiates to left flank. She also complains of pelvic pain and urgency but is unable to urinate. She denies ever having this pain in the past. She reports subjective fever but no chills. Denies diarrhea, melena, hematochezia, hematemesis dysuria, hematuria. REVIEW OF SYSTEMS: CONSTITUTIONAL: Absent: chills, diaphoresis, weight change HEENT: Absent: rhinorrhea, nasal congestion, throat pain CARDIOVASCULAR: Absent: chest pain, syncope, palpitations, irregular heart rate, lightheadedness , peripheral edema RESPIRATORY: Absent: cough, shortness of breath, orthopnea GASTROINTESTINAL: Absent: diarrhea, constipation, melena, hematochezia GENITOURINARY: Absent: dysuria, hematuria MUSCULOSKELETAL: Absent: neck pain SKIN: Absent: rash HEMATOLOGIC/IMMUNOLOGIC: Absent: easy bleeding, easy bruising ENDOCRINE: Absent: unexplained weight gain, unexplained weight loss NEUROLOGIC: Absent: headache, focal weakness or paresthesias PSYCHIATRIC: Absent: anxiety, depression PHYSICAL EXAMINATION Vital Signs - 24 hr 09/24/17 09/25/17 09/25/17 17:38 01:18 02:55 Temperature 99.1 F 100 F H Pulse Rate 95 H Pulse Rate [ 109 H 112 H Right Brachial] Respiratory 18 21 16 Rate Blood Pressure 188/91 Blood Pressure 198/90 191/92 [Right Arm] O2 Sat by Pulse 100 95 Oximetry (%) 09/25/17 09/25/17 09/25/17 04:40 06:21 09:48 Temperature 100 F H 98.9 F Pulse Rate 102 H Pulse Rate [ 111 H 110 H Right Brachial] Respiratory 16 18 18 Rate Blood Pressure 155/85 Blood Pressure 170/78 170/91 [Right Arm] O2 Sat by Pulse 98 97 Oximetry (%) 09/25/17 09/25/17 09/25/17 10:06 13:00 14:00 Temperature 98.3 F 98.1 F Pulse Rate 106 H 100 H Pulse Rate [ Right Brachial] Respiratory 19 19 Rate Blood Pressure 174/84 128/108 Blood Pressure [Right Arm] O2 Sat by Pulse 96 99 Oximetry (%) GENERAL: Awake, alert, and fully oriented, in no acute distress. HEAD: Normal with no signs of trauma. EYES: Pupils equal, round and reactive to light, extraocular movements intact, sclera anicteric, conjunctiva clear. No lid lag. EARS, NOSE, THROAT: Moist mucous membranes. NECK: supple without JVD LUNGS: Breath sounds equal, clear to auscultation bilaterally. HEART: Regular rate and rhythm, normal S1 and S2 ABDOMEN: Soft, diffusely tender mostly in LLQ, mildly distended, full tender bladder, hyperactive bowel sounds, voluntary LLQ guarding, no rebound, no masses. MUSCULOSKELETAL: mild L CVA tenderness. UPPER EXTREMITIES: No peripheral edema. LOWER EXTREMITIES: 2+ pulses, warm, well-perfused. No calf tenderness. No peripheral edema. NEUROLOGICAL: Cranial nerves II-XII grossly intact. Normal speech. PSYCHIATRIC: Cooperative. Good eye contact. Appropriate mood and affect. SKIN: Warm, dry Laboratory Results - last 24 hr 09/24/17 09/24/17 09/24/17 18:16 18:16 18:16 WBC 12.8 H RBC 5.10 Hgb 15.1 Hct 45.1 D MCV 88.5 MCH 29.6 D MCHC 33.5 RDW 13.2 D Plt Count 421 D MPV 7.5 Sodium 138 Potassium 4.3 Chloride 102 Carbon Dioxide 22 Anion Gap 14 BUN 23 H Creatinine 1.1 H Creat Clearance w eGFR 46.98 Random Glucose 189 H Lactic Acid Calcium 9.9 Total Bilirubin 0.8 AST 22 ALT 20 Alkaline Phosphatase 88 Troponin I < 0.02 Total Protein 9.3 H Albumin 4.3 Lipase 55 L Urine Color Urine Appearance Urine pH Ur Specific [place] Urine Protein Urine Glucose (UA) Urine Ketones Urine Blood Urine Nitrite Urine Bilirubin Urine Urobilinogen Ur Leukocyte Esterase Urine WBC (Auto) Urine RBC (Auto) Ur Epithelial Cells 09/24/17 09/24/17 09/25/17 21:50 22:35 01:51 WBC RBC Hgb Hct MCV MCH MCHC RDW Plt Count MPV Sodium Potassium Chloride Carbon Dioxide Anion Gap BUN Creatinine Creat Clearance w eGFR Random Glucose Lactic Acid 2.6 H* 3.1 H* Calcium Total Bilirubin AST ALT Alkaline Phosphatase Troponin I Total Protein Albumin Lipase Urine Color Yellow Urine Appearance Clear Urine pH 5.0 Ur Specific [place] > 1.060 H Urine Protein 2+ H Urine Glucose (UA) Negative Urine Ketones Negative Urine Blood 1+ H Urine Nitrite Negative Urine Bilirubin Negative Urine Urobilinogen Negative Ur Leukocyte Esterase Negative Urine WBC (Auto) None Urine RBC (Auto) 3 Ur Epithelial Cells Rare 09/25/17 09/25/17 03:30 03:30 WBC 9.5 RBC 4.48 Hgb 13.5 Hct 39.9 MCV 88.9 MCH 30.1 MCHC 33.8 RDW 13.0 Plt Count 330 D MPV 7.5 Sodium Potassium Chloride Carbon Dioxide Anion Gap BUN Creatinine Creat Clearance w eGFR Random Glucose Lactic Acid 2.6 H* Calcium Total Bilirubin AST ALT Alkaline Phosphatase Troponin I Total Protein Albumin Lipase Urine Color Urine Appearance Urine pH Ur Specific [place] Urine Protein Urine Glucose (UA) Urine Ketones Urine Blood Urine Nitrite Urine Bilirubin Urine Urobilinogen Ur Leukocyte Esterase Urine WBC (Auto) Urine RBC (Auto) Ur Epithelial Cells Active Medications Generic Name Dose Route Start Last Admin Trade Name Freq PRN Reason Stop Dose Admin Bisacodyl 10 mg 09/25/17 10:22 09/25/17 10:57 Dulcolax Suppository - RC 10 mg DAILY PRN Administration CONSTIPATION Heparin Sodium (Porcine) 5,000 unit 09/25/17 10:00 09/25/17 10:01 Heparin - SQ 5,000 unit BID JN Administration Hydralazine HCl 5 mg 09/25/17 01:45 09/25/17 14:39 Apresoline Injection - IVPUSH 5 mg Q6H PRN Administration HYPERTENSION Sodium Chloride 1,000 mls @ 75 mls/hr 09/25/17 05:30 09/25/17 05:32 1/2 Normal Saline IV 75 mls/hr ASDIR JN Administration Levothyroxine Sodium 37.5 mcg 09/25/17 10:00 09/25/17 10:57 Synthroid Injection - IVPUSH 37.5 mcg DAILY JN Administration Morphine Sulfate 1 mg 09/25/17 09:55 09/25/17 10:57 Morphine Sulfate IVPUSH 1 mg Q4H PRN Administration PAIN LEVEL 6-10 ASSESSMENT/PLAN: This is an 87 yo F with PMH of diverticulosis, constipation, chronic oxycodone user, prior colonoscopy with polypectomy, melanoma, HTN, hypothroidism, who presents with n/bilious v and diffuse cramping abd pain x 1 d, found to have uncomplicated sbo A: severe sepsis due to sbo urinary retention hiatal hernia chronic pain htn hypothyroidism constipation diverticulosis P: -patient refuses ngt (however it was in on suction for some time before she pulled it out) -CT abd/pelvis: artial SBO with a transition point reflecting a congenital band or internal hernia; per GI/surgery resolving without NG suctioning -suspected underlying fecal impaction will be treated with lavage tomorrow -lactic acidosis due to small bowel ischemia improving with hydration 2.6; continue LR @ 75, repeat labs -prophylactic flagyl, rocephin -pain control with iv tylenol and morphine; minimize opiates -npo, hope to start diet tomorrow -bladder retention likely due to irritation form inflamed intestine, UA cleat, urine culture p/d. nieves inserted draining 1L -continue levothyroxine IV FEN LR @ 75 lytes stable npo hep sq, ppi Dispo: We will continue to follow the patient. Thank you for this consultative opportunity. Problem List - Problems (1) Abdominal pain Code(s): R10.9 - UNSPECIFIED ABDOMINAL PAIN Qualifiers: Abdominal location: generalized Qualified Code(s): R10.84 - Generalized abdominal pain (2) Constipation due to opioid therapy Code(s): K59.03 - DRUG INDUCED CONSTIPATION; T40.2X5A - ADVERSE EFFECT OF OTHER OPIOIDS, INITIAL ENCOUNTER (3) Hiatal hernia Code(s): K44.9 - DIAPHRAGMATIC HERNIA WITHOUT OBSTRUCTION OR GANGRENE (4) History of colon polyps Code(s): Z86.010 - PERSONAL HISTORY OF COLONIC POLYPS (5) Hypertension Code(s): I10 - ESSENTIAL (PRIMARY) HYPERTENSION (6) Hypothyroidism Code(s): E03.9 - HYPOTHYROIDISM, UNSPECIFIED (7) Macular degeneration Code(s): H35.30 - UNSPECIFIED MACULAR DEGENERATION (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 - New Patient This patient is new to me today: Yes Date on this admission: 09/25/17 - Critical Care Critical Care patient: Yes Total Critical Care Time (in minutes): 40 Critical Care Statement: The care of this patient involved high complexity decision making to prevent further life threatening deterioration of the patient 's condition and/or to evaluate & treat vital organ system(s) failure or risk of failure.
[2017-09-25] MEDS: LACTATED RINGERS SOLUTION 1,000 ML/1,000 ML INFUS.BAG IV SCH (17:15)
[2017-09-25] MEDS: ACETAMINOPHEN 1000 MG/100 ML VIAL (NON FORMULARY) IVPB PRN ×2 (17:32→22:22)
[2017-09-25] MEDS ORDERED: cefTRIAXone SODIUM 1 GM VIAL ONE (17:54)
[2017-09-25] MEDS ORDERED: DEXTROSE 5%-WATER - 50 ML IVPB ONE (17:54)
[2017-09-25] MEDS: PANTOPRAZOLE SODIUM 40 MG VIAL IVPUSH SCH (17:57)
[2017-09-25] MEDS: CEFTRIAXONE 1 GM in DEXTROSE 5%-WATER - 50 ML IVPB SCH (17:57)
[2017-09-25] MEDS ORDERED: dilTIAZem HCL 50 MG/10 ML - 10 ML VIAL IVPUSH PRN (17:58)
[2017-09-25 18:59] LABS: BASO % 0.3 % (0-2.0); EOS % 0.7 % (0-4.5); HEMATOCRIT 37.5 % (32.4-45.2); HEMOGLOBIN 12.9 GM/dL (10.7-15.3); LYMPH % 26.8 % (8-40); MCH 30.4 pg (25.7-33.7); MCHC 34.3 g/dl (32.0-36.0); MEAN CELL VOLUME 88.7 fl (80-96); MEAN PLT VOLUME 7.8 fl (7.5-11.1); MONO % 19.2 % (3.8-10.2); PLATELET COUNT 318 K/MM3 (134-434); RBC 4.23 M/mm3 (3.60-5.2); RDW 13.2 % (11.6-15.6); WHITE BLOOD COUNT 6.1 K/mm3 (4.0-10.0)
--- NOTE | 2017-09-25 19:01 | EKG ---
Test Reason : Blood Pressure : / mmHG Vent. Rate : 090 BPM Atrial Rate : 090 BPM P-R Int : 174 ms QRS Dur : 078 ms QT Int : 336 ms P-R-T Axes : 066 -38 041 degrees QTc Int : 411 ms NORMAL SINUS RHYTHM LEFT AXIS DEVIATION INFERIOR INFARCT , AGE UNDETERMINED ABNORMAL ECG WHEN COMPARED WITH ECG OF 11-MAY-2016 12:59, INFERIOR INFARCT IS NOW PRESENT NONSPECIFIC T WAVE ABNORMALITY NOW EVIDENT IN ANTEROLATERAL LEADS Confirmed by MD MARIBELL, LUCIANO ([id number]) on 09/25/2017 7:00:48 PM Referred By: Confirmed By:LUCIANO REYNA MD
[2017-09-25 19:47] LABS: ALBUMIN 3.3 g/dl (3.4-5.0); ALK PHOS 59 U/L (45-117); ANION GAP 9 (8-16); BILIRUBIN,TOTAL 0.8 mg/dL (0.2-1.0); BLOOD UREA NITROGEN 13 mg/dL (7-18); CALCIUM 8.3 mg/dL (8.5-10.1); CHLORIDE 108 mmol/L (98-107); CO2 26 mmol/L (21-32); CREATININE 0.6 mg/dL (0.55-1.02); GLUCOSE,RANDOM 101 mg/dL (74-106); MAGNESIUM 1.6 mg/dL (1.8-2.4); PHOSPHOROUS 1.6 mg/dL (2.5-4.9); POTASSIUM 3.4 mmol/L (3.5-5.1); SGOT/AST 23 U/L (15-37); SGPT/ALT 15 U/L (12-78); SODIUM 143 mmol/L (136-145); TOT PROT 6.9 g/dl (6.4-8.2)
[2017-09-25] MEDS ORDERED: PT OWN MED DRAWER 7, Y5N ONE (22:12)
[2017-09-26] MEDS ORDERED: MORPHINE SULFATE 2 MG/ML VIAL IVPUSH ONE (06:56)
[2017-09-26 07:08] LABS: BASO % 0.6 % (0-2.0); EOS % 2.2 % (0-4.5); HEMATOCRIT 41.1 % (32.4-45.2); HEMOGLOBIN 14.1 GM/dL (10.7-15.3); LYMPH % 24.7 % (8-40); MCH 30.3 pg (25.7-33.7); MCHC 34.3 g/dl (32.0-36.0); MEAN CELL VOLUME 88.3 fl (80-96); MEAN PLT VOLUME 8.1 fl (7.5-11.1); MONO % 18.1 % (3.8-10.2); NEUT % 54.4 % (42.8-82.8); PLATELET COUNT 339 K/MM3 (134-434); RBC 4.65 M/mm3 (3.60-5.2); RDW 13.3 % (11.6-15.6); WHITE BLOOD COUNT 6.1 K/mm3 (4.0-10.0)
[2017-09-26 07:31] LABS: ALBUMIN 3.5 g/dl (3.4-5.0); ANION GAP 9 (8-16); BLOOD UREA NITROGEN 11 mg/dL (7-18); CALCIUM 8.7 mg/dL (8.5-10.1); CHLORIDE 106 mmol/L (98-107); CO2 28 mmol/L (21-32); CREATININE 0.6 mg/dL (0.55-1.02); GLUCOSE,RANDOM 102 mg/dL (74-106); MAGNESIUM 1.7 mg/dL (1.8-2.4); PHOSPHOROUS 1.5 mg/dL (2.5-4.9); POTASSIUM 3.2 mmol/L (3.5-5.1); SGOT/AST 43 U/L (15-37); SGPT/ALT 20 U/L (12-78); SODIUM 143 mmol/L (136-145)
[2017-09-26 07:33] LABS: ALK PHOS 62 U/L (45-117); BILIRUBIN,TOTAL 0.8 mg/dL (0.2-1.0); TOT PROT 7.5 g/dl (6.4-8.2)
[2017-09-26] MEDS ORDERED: MAGNESIUM SULF 50% (8.12 MEQ/2 ML-1 GM VIAL) IVPB ONE (08:03)
[2017-09-26] MEDS: KCL 10 MEQ IVPB 10 MEQ/100 ML INFUS.BAG IVPB SCH ×3 (08:15→10:15)
[2017-09-26] MEDS: ACETAMINOPHEN 1000 MG/100 ML VIAL (NON FORMULARY) IVPB PRN ×2 (08:30→17:12)
[2017-09-26] MEDS ORDERED: DEXTROSE 5%-WATER - 50 ML IVPB ONE (08:47)
[2017-09-26] MEDS ORDERED: cefTRIAXone SODIUM 1 GM VIAL ONE (08:47)
[2017-09-26] MEDS: CEFTRIAXONE 1 GM in DEXTROSE 5%-WATER - 50 ML IVPB SCH (09:00)
[2017-09-26] MEDS: LACTATED RINGERS SOLUTION 1,000 ML/1,000 ML INFUS.BAG IV SCH ×2 (10:26→17:15)
[2017-09-26] MEDS: PANTOPRAZOLE SODIUM 40 MG VIAL IVPUSH SCH (10:28)
[2017-09-26] MEDS ORDERED: PT OWN MED DRAWER 7, Y5N ONE (10:28)
[2017-09-26] MEDS: HEPARIN NA (PORCINE) 5,000 UNITS/ML 1ML VIAL SQ SCH ×2 (10:28→22:15)
[2017-09-26] MEDS: LEVOTHYROXINE SODIUM 100 MCG VIAL IVPUSH SCH (10:29)
--- NOTE | 2017-09-26 10:39 | PN ---
GI Progress Note Subjective: GI NOte: Complaining of bone and joint pains but denies nausea and vomiting. Wants to eat. FUA reveals decreased small bowel distension. Discussed situation with her son, Bunny. - Objective Vital Signs: Vital Signs Temperature 97.8 F 09/26/17 10:00 Pulse Rate 90 09/26/17 10:00 Respiratory Rate 18 09/26/17 10:00 Blood Pressure 160/84 09/26/17 10:00 O2 Sat by Pulse Oximetry (%) 100 09/26/17 08:00 Laboratory Tests 09/24/17 09/26/17 09/26/17 18:16 05:30 05:30 WBC 12.8 H 6.1 Hgb 14.1 BUN 11 Creatinine 0.6 Constitutional: Anxious ...Auscultate: Yes: Normoactive Bowel Sounds ...Palpate: Yes: Soft, Other (nontender) Labs: CBC, BMP 09/26/17 05:30 09/26/17 05:30 Problem List - Problems (1) Small bowel obstruction Assessment/Plan: FUA suggests resolving SBO. Will try clear liquids and start Miralax lavage of fecal impaction. Will need to address porcelain GB at a later stage. Discussed case with Dr. Blackburn. Code(s): K56.609 - UNSP INTESTNL OBST, UNSP TO PARTIAL VERSUS COMPLETE OBST (2) History of colon polyps Code(s): Z86.010 - PERSONAL HISTORY OF COLONIC POLYPS (3) Constipation due to opioid therapy Code(s): K59.03 - DRUG INDUCED CONSTIPATION; T40.2X5A - ADVERSE EFFECT OF OTHER OPIOIDS, INITIAL ENCOUNTER (4) Hiatal hernia Code(s): K44.9 - DIAPHRAGMATIC HERNIA WITHOUT OBSTRUCTION OR GANGRENE (5) Macular degeneration Code(s): H35.30 - UNSPECIFIED MACULAR DEGENERATION
[2017-09-26] MEDS ORDERED: FENTANYL PATCH WASTE MC PRN (11:09)
[2017-09-26] MEDS ORDERED: fentaNYL 12mcg/hr PATCH.TD72 TD SCH (11:15)
[2017-09-26] MEDS ORDERED: POTASSIUM PHOSPHATE 15 MM in SODIUM CHLORIDE 245 ML IVPB ONE (11:22)
--- NOTE | 2017-09-26 11:42 | PN ---
Teaching Attending Note Name of Resident: Jack Taylor ATTENDING PHYSICIAN STATEMENT I saw and evaluated the patient. I reviewed the resident's note and discussed the case with the resident. I agree with the resident's findings and plan as documented. SUBJECTIVE: Pt seen and examined in the ICU. c/o pain "all over." Flatus but no bowel movements. OBJECTIVE: Vital Signs Period Temp Pulse Resp BP Sys/Glass Pulse Ox Last 24 Hr 97.8 F-98.3 F 80-107 9-20 128-185/57-114 99-100 Intake & Output 09/23/17 09/24/17 09/25/17 09/26/17 23:59 23:59 23:59 23:59 Intake Total 1050 1010 Output Total 3100 1200 Balance -2050 -190 Weight 61.689 kg 75.296 kg Gen: NAD at rest Heart: RRR Lung: decreased breath sounds at the bases Abd: soft, nontender Ext: no edema CBC, BMP 09/26/17 05:30 09/26/17 05:30 Active Medications Acetaminophen (Ofirmev Injection -) 1,000 mg IVPB Q6H PRN PRN Reason: PAIN LEVEL 1-5 Last Admin: 09/26/17 08:30 Dose: 1,000 mg Bisacodyl (Dulcolax Suppository -) 10 mg RC DAILY PRN PRN Reason: CONSTIPATION Last Admin: 09/25/17 10:57 Dose: 10 mg Diltiazem HCl (Cardizem Injection -) 10 mg IVPUSH Q4H PRN PRN Reason: TACHYCARDIA Last Admin: 09/25/17 18:17 Dose: 10 mg Fentanyl (Duragesic 12mcg Patch -) 1 patch TD Q72H [facility] Stop: 10/03/17 11:09 Last Admin: 09/26/17 11:35 Dose: 1 patch Heparin Sodium (Porcine) (Heparin -) 5,000 unit SQ BID JN Last Admin: 09/26/17 10:28 Dose: 5,000 unit Hydralazine HCl (Apresoline Injection -) 5 mg IVPUSH Q6H PRN PRN Reason: HYPERTENSION Last Admin: 09/25/17 14:39 Dose: 5 mg Lactated Ringer's (Lactated Ringers Solution) 1,000 ml in 1,000 mls @ 75 mls/ hr IV ASDIR [facility] Last Admin: 09/26/17 10:26 Dose: 75 mls/hr Metronidazole (Flagyl 500mg Premixed Ivpb -) 500 mg in 100 mls @ 100 mls/hr IVPB Q6H-IV [facility] Last Admin: 09/26/17 09:00 Dose: 100 mls/hr Ceftriaxone Sodium 1 gm/ (Dextrose) 50 mls @ 100 mls/hr IVPB DAILY [facility] Last Admin: 09/26/17 09:00 Dose: 100 mls/hr Potassium Phosphate 15 mm/ (Sodium Chloride) 255 mls @ 62.5 mls/hr IVPB ONCE ONE Stop: 09/26/17 15:26 Levothyroxine Sodium (Synthroid Injection -) 37.5 mcg IVPUSH DAILY [facility] Last Admin: 09/26/17 10:29 Dose: 37.5 mcg Miscellaneous (Duragesic Patch Waste) 1 each MC PRN PRN PRN Reason: PAIN Morphine Sulfate (Morphine Sulfate) 1 mg IVPUSH Q4H PRN PRN Reason: PAIN LEVEL 6-10 Last Admin: 09/25/17 20:07 Dose: 1 mg Pantoprazole Sodium (Protonix Iv) 40 mg IVPUSH DAILY [facility] Last Admin: 09/26/17 10:28 Dose: 40 mg Polyethylene Glycol (Miralax (For Daily Use) -) 17 gm PO TID [facility] Potassium Phos/Sodium Phos (Phos-Nak Packet -) 1 packet PO TID [facility] ASSESSMENT AND PLAN: Partial Small Bowel Obstruction Opiate Dependence Fecal Impaction Diverticulosis Lactic Acidosis HTN Hypothyroidism - pain control - bowel regimen - PO per GI - pt refusing NGT - IVF - replete lytes - continue empiric antibiotics - DVT prophylaxis
--- NOTE | 2017-09-26 12:34 | PN ---
Teaching Attending Note Name of Resident: Lnae Landeros ATTENDING PHYSICIAN STATEMENT I saw and evaluated the patient. I reviewed the resident's note and discussed the case with the resident. I agree with the resident's findings and plan as documented. SUBJECTIVE: Patient is comfortable with no acute distress, no shortness of breath, c/o having abdominal pain, Son at bedside. OBJECTIVE: Vital Signs Temperature 97.8 F 09/26/17 10:00 Pulse Rate 90 09/26/17 10:00 Respiratory Rate 18 09/26/17 10:00 Blood Pressure 160/84 09/26/17 10:00 O2 Sat by Pulse Oximetry (%) 100 09/26/17 08:00 GENERAL: AAOx3. in NAD . HEENT: AT/NC. Dry. NECK: supple without lymphadenopathy, JVD, or masses. LUNGS: Clear to auscultation anteriorly. HEART: RRR. Normal S1, S2. SEM2/6 ,no rubs, or gallop noted. ABDOMEN: soft , NT , positive for BS. MUSCULOSKELETAL: No peripheral edema noted. EXTREMITIES: 2+ pulses, warm, well-perfused. No cyanosis. No clubbing. NEUROLOGICAL: Normal speech. SKIN: Warm, dry, normal turgor, no rashes or lesions noted, normal capillary refill. CBCD WBC 6.1 K/mm3 (4.0-10.0) 09/26/17 05:30 RBC 4.65 M/mm3 (3.60-5.2) 09/26/17 05:30 Hgb 14.1 GM/dL (10.7-15.3) 09/26/17 05:30 Hct 41.1 % (32.4-45.2) 09/26/17 05:30 MCV 88.3 fl (80-96) 09/26/17 05:30 MCHC 34.3 g/dl (32.0-36.0) 09/26/17 05:30 RDW 13.3 % (11.6-15.6) 09/26/17 05:30 Plt Count 339 K/MM3 (134-434) 09/26/17 05:30 MPV 8.1 fl (7.5-11.1) 09/26/17 05:30 CMP Sodium 143 mmol/L (136-145) 09/26/17 05:30 Potassium 3.2 mmol/L (3.5-5.1) L 09/26/17 05:30 Chloride 106 mmol/L (98-107) 09/26/17 05:30 Carbon Dioxide 28 mmol/L (21-32) 09/26/17 05:30 Anion Gap 9 (8-16) 09/26/17 05:30 BUN 11 mg/dL (7-18) 09/26/17 05:30 Creatinine 0.6 mg/dL (0.55-1.02) 09/26/17 05:30 Creat Clearance w eGFR > 60 (>60) 09/26/17 05:30 Random Glucose 102 mg/dL (74-106) 09/26/17 05:30 Calcium 8.7 mg/dL (8.5-10.1) 09/26/17 05:30 Total Bilirubin 0.8 mg/dL (0.2-1.0) 09/26/17 05:30 AST 43 U/L (15-37) H 09/26/17 05:30 ALT 20 U/L (12-78) 09/26/17 05:30 Alkaline Phosphatase 62 U/L (45-117) 09/26/17 05:30 Total Protein 7.5 g/dl (6.4-8.2) 09/26/17 05:30 Albumin 3.5 g/dl (3.4-5.0) 09/26/17 05:30 CARDIAC ENZYMES Troponin I < 0.02 ng/ml (0.00-0.05) 09/24/17 18:16 Current Medications Generic Name Dose Route Start Last Admin Trade Name Federico PRN Reason Stop Dose Admin Acetaminophen 1,000 mg 09/25/17 17:08 09/26/17 08:30 Ofirmev Injection - IVPB 1,000 mg Q6H PRN Administration PAIN LEVEL 1-5 Bisacodyl 10 mg 09/25/17 10:22 09/25/17 10:57 Dulcolax Suppository - RC 10 mg DAILY PRN Administration CONSTIPATION Diltiazem HCl 10 mg 09/25/17 17:58 09/25/17 18:17 Cardizem Injection - IVPUSH 10 mg Q4H PRN Administration TACHYCARDIA Fentanyl 1 patch 09/26/17 11:15 09/26/17 11:35 Duragesic 12mcg Patch - TD 10/03/17 11:09 1 patch Q72H JN Administration Heparin Sodium (Porcine) 5,000 unit 09/25/17 10:00 09/26/17 10:28 Heparin - SQ 5,000 unit BID JN Administration Hydralazine HCl 5 mg 09/25/17 01:45 09/25/17 14:39 Apresoline Injection - IVPUSH 5 mg Q6H PRN Administration HYPERTENSION Lactated Ringer's 1,000 ml in 1,000 mls @ 75 mls/hr 09/25/17 17:15 09/26/17 10:26 Lactated Ringers Solution IV 75 mls/hr ASDIR JN Administration Metronidazole 500 mg in 100 mls @ 100 mls/hr 09/25/17 17:45 09/26/17 09:00 Flagyl 500mg Premixed Ivpb - IVPB 100 mls/hr Q6H-IV JN Administration Ceftriaxone Sodium 1 gm/ 50 mls @ 100 mls/hr 09/25/17 18:00 09/26/17 09:00 Dextrose IVPB 100 mls/hr DAILY JN Administration Potassium Phosphate 15 mm/ 250 mls @ 62.5 mls/hr 09/26/17 11:22 Sodium Chloride IVPB 09/26/17 15:21 ONCE ONE Levothyroxine Sodium 37.5 mcg 09/25/17 10:00 09/26/17 10:29 Synthroid Injection - IVPUSH 37.5 mcg DAILY JN Administration Miscellaneous 1 each 09/26/17 11:09 Duragesic Patch Waste MC PRN PRN PAIN Morphine Sulfate 1 mg 09/25/17 09:55 09/25/17 20:07 Morphine Sulfate IVPUSH 1 mg Q4H PRN Administration PAIN LEVEL 6-10 Pantoprazole Sodium 40 mg 09/25/17 18:00 09/26/17 10:28 Protonix Iv IVPUSH 40 mg DAILY JN Administration Polyethylene Glycol 17 gm 09/26/17 14:00 Miralax (For Daily Use) - PO TID JN Potassium Phos/Sodium Phos 1 packet 09/26/17 14:00 Phos-Nak Packet - PO TID JN Home Medications Medication Instructions Recorded Levothyroxine Sodium [Levoxyl] 75 mcg PO DAILY 09/24/17 Oxycodone HCl/Acetaminophen 1 tab PO Q6H 09/24/17 [Percocet 5-325 mg Tablet] IMAGING: CTAP: recurrent SBO w/ transition zone in central/R paramedian aspect of lower abdomen. Maximum dilated SB luminal diameter about 7.4 cm; focal calcification in region of GB fundus which may represent calculus vs. wall calcification. Probably diffuse hepatic steatosis. No evidence of acute diverticulitis. Cholelithiasis vs. prominent GB wall calcification. CXR: Since the prior study of 05/11/2016, there is a larger heart with large hiatal hernia, sclerotic knob , weak or inspiration and central congestive changes with some minimal atelectatic changes at the bases. The soft tissues are intact. There are degenerative changes. ASSESSMENT/PLAN: Patient is an 87yo female with pmhx of HTN, hypothyroidism, diverticulosis, melanoma, basal cell carcinoma, and hiatal hernia presented with abdominal pain with nausea and vomiting x 1 day and was found to have SBO on CTAP # Small bowel obstruction - NPO, IVF, NG tube but patient pulled the NG tube, patient is on Morphine IV prn. # Electrolyte abnormality ( hypophosphotemia/hypokalemia/ hypomag) will replete , repeat the levels in am # MEL - improved post IVF . # Acute Constipation: on dulcolax , Miralx, GI on the case. # Chronic pain on Percocet at home, will start her on Duragesic 12mcg patch daily . DVT prophylaxis - Heparin 5000u sq tid. Advance directives - Full code
[2017-09-26] MEDS: NAPH,MB-DB/K PH,MBDB POWDER PACKET PO SCH ×2 (13:00→22:15)
--- NOTE | 2017-09-26 13:27 | PN ---
Physical Exam: SUBJECTIVE: Patient seen and examined at bedside. No new complaints OBJECTIVE: Vital Signs Period Temp Pulse Resp BP Sys/Glass Pulse Ox Last 24 Hr 97.7 F-98.3 F 80-107 9-20 128-185/57-114 100-100 GENERAL: The patient is awake, alert, and fully oriented, in no acute distress. HEAD: Normal with no signs of trauma. NECK: Trachea midline, full range of motion, supple. LUNGS: Breath sounds equal, clear to auscultation bilaterally, no wheezes, no crackles, no accessory muscle use. HEART: Regular rate and rhythm, S1, S2 without murmur, rub or gallop. ABDOMEN: Soft, mild tenderness to palpation, nondistended, normoactive bowel sounds, no guarding, no rebound. EXTREMITIES: 2+ pulses, warm, well-perfused, no edema. NEUROLOGICAL: Cranial nerves II through X grossly intact. Normal speech, gait not observed. SKIN: Warm, dry, normal turgor, no rashes or lesions noted CBC, BMP 09/26/17 05:30 09/26/17 05:30 Home Medication List Medication Instructions Recorded Confirmed Type Levothyroxine Sodium [Levoxyl] 75 mcg PO DAILY 09/24/17 09/24/17 History Oxycodone HCl/Acetaminophen 1 tab PO Q6H 09/24/17 09/24/17 History [Percocet 5-325 mg Tablet] Active Medications Acetaminophen (Ofirmev Injection -) 1,000 mg IVPB Q6H PRN PRN Reason: PAIN LEVEL 1-5 Last Admin: 09/26/17 08:30 Dose: 1,000 mg Bisacodyl (Dulcolax Suppository -) 10 mg RC DAILY PRN PRN Reason: CONSTIPATION Last Admin: 09/25/17 10:57 Dose: 10 mg Diltiazem HCl (Cardizem Injection -) 10 mg IVPUSH Q4H PRN PRN Reason: TACHYCARDIA Last Admin: 09/25/17 18:17 Dose: 10 mg Fentanyl (Duragesic 12mcg Patch -) 1 patch TD Q72H [facility] Stop: 10/03/17 11:09 Last Admin: 09/26/17 11:35 Dose: 1 patch Heparin Sodium (Porcine) (Heparin -) 5,000 unit SQ BID [facility] Last Admin: 09/26/17 10:28 Dose: 5,000 unit Hydralazine HCl (Apresoline Injection -) 5 mg IVPUSH Q6H PRN PRN Reason: HYPERTENSION Last Admin: 09/25/17 14:39 Dose: 5 mg Lactated Ringer's (Lactated Ringers Solution) 1,000 ml in 1,000 mls @ 75 mls/ hr IV ASDIR [facility] Last Admin: 09/26/17 10:26 Dose: 75 mls/hr Metronidazole (Flagyl 500mg Premixed Ivpb -) 500 mg in 100 mls @ 100 mls/hr IVPB Q6H-IV JN Last Admin: 09/26/17 09:00 Dose: 100 mls/hr Ceftriaxone Sodium 1 gm/ (Dextrose) 50 mls @ 100 mls/hr IVPB DAILY [facility] Last Admin: 09/26/17 09:00 Dose: 100 mls/hr Potassium Phosphate 15 mm/ (Sodium Chloride) 250 mls @ 62.5 mls/hr IVPB ONCE ONE Stop: 09/26/17 15:21 Last Admin: 09/26/17 12:56 Dose: 62.5 mls/hr Levothyroxine Sodium (Synthroid Injection -) 37.5 mcg IVPUSH DAILY [facility] Last Admin: 09/26/17 10:29 Dose: 37.5 mcg Miscellaneous (Duragesic Patch Waste) 1 each MC PRN PRN PRN Reason: PAIN Morphine Sulfate (Morphine Sulfate) 1 mg IVPUSH Q4H PRN PRN Reason: PAIN LEVEL 6-10 Last Admin: 09/25/17 20:07 Dose: 1 mg Pantoprazole Sodium (Protonix Iv) 40 mg IVPUSH DAILY [facility] Last Admin: 09/26/17 10:28 Dose: 40 mg Polyethylene Glycol (Miralax (For Daily Use) -) 17 gm PO TID [facility] Potassium Phos/Sodium Phos (Phos-Nak Packet -) 1 packet PO TID [facility] Last Admin: 09/26/17 13:00 Dose: 1 packet ASSESSMENT/PLAN: The patient is an 87 yo F w/ pmhx of HTN, hypothyroidism, diverticulosis, melanoma, basal cell carcinoma, and hiatal hernia presented with 1 day h/o nausea and vomiting associated with abdominal pain. #SBO -NGT removed x2 -Morphine 4 mg Q6H for pain -NPO -surgical and GI evaluation: s/p disimpaction, medical management currently. #Leukocytosis w/ elevated lactate -Pt is afebrile, with resolved WBC -lactate has normalized. -urine cx pending -flagyl 500mg q6h -ceftriaxone 1g daily #MEL -likely due to dehydration as pt has poor PO intake and now NPO -avoid nephrotoxic meds -gentle hydration with LR @75cc/hr #HTN -Hydralazine 5 mg IV Q6H, if systolic BP >160 -cont to monitor BP #Hypothyroidism -Levothyroxine 37.5 mcg IVP QD #DVT Ppx -Heparin 5k units SQ TID #FEN -LR @ 75cc/hr -lytes repleted by ICU team. recheck lytes in AM -NPO dispo -full code Visit type - Emergency Visit Emergency Visit: Yes ED Registration Date: 09/24/17 Care time: The patient presented to the Emergency Department on the above date and was hospitalized for further evaluation of their emergent condition. - New Patient This patient is new to me today: No - Critical Care Critical Care patient: Yes Total Critical Care Time (in minutes): 35 Critical Care Statement: The care of this patient involved high complexity decision making to prevent further life threatening deterioration of the patient 's condition and/or to evaluate & treat vital organ system(s) failure or risk of failure.
[2017-09-26] MEDS: POLYETHYLENE GLYCOL 3350 119 GM BTL PO SCH (13:54)
--- NOTE | 2017-09-26 14:00 | PN ---
Physical Exam: SUBJECTIVE: Patient seen and examined at bedside. Having pain and requesting oxy and saying morphine doesn't help her nor does the IV tylenol. Pt overnight continuosly asking for pain meds despite being her PRN meds. Pt with no BM or flatus thus far since her BM yesterday. Complained of chest pain this AM, EKG done which showed no changes compared to prior EKG. OBJECTIVE: Vital Signs Temperature 97.7 F 09/26/17 12:00 Pulse Rate 102 H 09/26/17 12:00 Respiratory Rate 09/26/17 12:00 Blood Pressure 142/91 09/26/17 12:00 O2 Sat by Pulse Oximetry (%) 100 09/26/17 08:00 GENERAL: Awake, alert, and fully oriented, in no acute distress. HEAD: Normal with no signs of trauma. EYES: extraocular movements intact, sclera anicteric, conjunctiva clear. EARS, NOSE, THROAT: Moist mucous membranes. LUNGS: Breath sounds equal, clear to auscultation bilaterally. HEART: Regular rate and rhythm, normal S1 and S2 ABDOMEN: Soft, mild tenderness in LLQ, normoactive bowel sounds LOWER EXTREMITIES:warm, well-perfused. No calf tenderness. No peripheral edema. NEUROLOGICAL: Cranial nerves II-XII grossly intact. Normal speech. PSYCHIATRIC: Cooperative. Good eye contact. Appropriate mood and affect. SKIN: Warm, dry Laboratory Results - last 24 hr 09/25/17 09/25/17 09/25/17 18:10 18:10 18:10 WBC 6.1 RBC 4.23 Hgb 12.9 Hct 37.5 MCV 88.7 MCH 30.4 MCHC 34.3 RDW 13.2 Plt Count 318 MPV 7.8 Absolute Neuts (auto) 3.2 Neutrophils % 53.0 D Lymphocytes % 26.8 D Monocytes % 19.2 H D Eosinophils % 0.7 Basophils % 0.3 Nucleated RBC % 0 Sodium 143 Potassium 3.4 L Chloride 108 H Carbon Dioxide 26 Anion Gap 9 BUN 13 Creatinine 0.6 Creat Clearance w eGFR > 60 Random Glucose 101 Lactic Acid 1.2 Calcium 8.3 L Phosphorus 1.6 L Magnesium 1.6 L Total Bilirubin 0.8 AST 23 ALT 15 Alkaline Phosphatase 59 D Total Protein 6.9 D Albumin 3.3 L 09/26/17 09/26/17 05:30 05:30 WBC 6.1 RBC 4.65 Hgb 14.1 Hct 41.1 MCV 88.3 MCH 30.3 MCHC 34.3 RDW 13.3 Plt Count 339 MPV 8.1 Absolute Neuts (auto) 3.3 Neutrophils % 54.4 Lymphocytes % 24.7 Monocytes % 18.1 H Eosinophils % 2.2 D Basophils % 0.6 Nucleated RBC % 0 Sodium 143 Potassium 3.2 L Chloride 106 Carbon Dioxide 28 Anion Gap 9 BUN 11 Creatinine 0.6 Creat Clearance w eGFR > 60 Random Glucose 102 Lactic Acid Calcium 8.7 Phosphorus 1.5 L Magnesium 1.7 L Total Bilirubin 0.8 AST 43 H ALT 20 Alkaline Phosphatase 62 Total Protein 7.5 Albumin 3.5 Active Medications Generic Name Dose Route Start Last Admin Trade Name Freq PRN Reason Stop Dose Admin Acetaminophen 1,000 mg 09/25/17 17:08 09/26/17 08:30 Ofirmev Injection - IVPB 1,000 mg Q6H PRN Administration PAIN LEVEL 1-5 Bisacodyl 10 mg 09/25/17 10:22 09/25/17 10:57 Dulcolax Suppository - RC 10 mg DAILY PRN Administration CONSTIPATION Diltiazem HCl 10 mg 09/25/17 17:58 09/25/17 18:17 Cardizem Injection - IVPUSH 10 mg Q4H PRN Administration TACHYCARDIA Fentanyl 1 patch 09/26/17 11:15 09/26/17 11:35 Duragesic 12mcg Patch - TD 10/03/17 11:09 1 patch Q72H JN Administration Heparin Sodium (Porcine) 5,000 unit 09/25/17 10:00 09/26/17 10:28 Heparin - SQ 5,000 unit BID JN Administration Hydralazine HCl 5 mg 09/25/17 01:45 09/25/17 14:39 Apresoline Injection - IVPUSH 5 mg Q6H PRN Administration HYPERTENSION Lactated Ringer's 1,000 ml in 1,000 mls @ 75 mls/hr 09/25/17 17:15 09/26/17 10:26 Lactated Ringers Solution IV 75 mls/hr ASDIR JN Administration Metronidazole 500 mg in 100 mls @ 100 mls/hr 09/25/17 17:45 09/26/17 09:00 Flagyl 500mg Premixed Ivpb - IVPB 100 mls/hr Q6H-IV JN Administration Ceftriaxone Sodium 1 gm/ 50 mls @ 100 mls/hr 09/25/17 18:00 09/26/17 09:00 Dextrose IVPB 100 mls/hr DAILY JN Administration Potassium Phosphate 15 mm/ 250 mls @ 62.5 mls/hr 09/26/17 11:22 09/26/17 12: 56 Sodium Chloride IVPB 09/26/17 15:21 62.5 mls/hr ONCE ONE Administration Levothyroxine Sodium 37.5 mcg 09/25/17 10:00 09/26/17 10:29 Synthroid Injection - IVPUSH 37.5 mcg DAILY JN Administration Miscellaneous 1 each 09/26/17 11:09 Duragesic Patch Waste MC PRN PRN PAIN Morphine Sulfate 1 mg 09/25/17 09:55 09/25/17 20:07 Morphine Sulfate IVPUSH 1 mg Q4H PRN Administration PAIN LEVEL 6-10 Pantoprazole Sodium 40 mg 09/25/17 18:00 09/26/17 10:28 Protonix Iv IVPUSH 40 mg DAILY JN Administration Polyethylene Glycol 17 gm 09/26/17 14:00 Miralax (For Daily Use) - PO TID JN Potassium Phos/Sodium Phos 1 packet 09/26/17 14:00 09/26/17 13:00 Phos-Nak Packet - PO 1 packet TID JN Administration ASSESSMENT/PLAN: 87 y/o F w/PMH of HTN, hypothyroidism, diverticulosis, melanoma, basal cell ca, hiatal hernia presented to the ER w/N/V and abd pain. Found to have partial SBO. 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 - New Patient This patient is new to me today: Yes Date on this admission: 09/26/17 - Critical Care Critical Care patient: Yes Total Critical Care Time (in minutes): 42 Critical Care Statement: The care of this patient involved high complexity decision making to prevent further life threatening deterioration of the patient 's condition and/or to evaluate & treat vital organ system(s) failure or risk of failure.
--- NOTE | 2017-09-26 14:12 | PN ---
Progress Note, Physician Chief Complaint: SBO History of Present Illness: 87yo female PMH HTN, hypothroidism, and diverticulosis who presents with 1 day of nausea and vomiting per her son. This was associated diffuse achy/cramping abdominal pain that is worse in the upper abdomen. Now having bowel movements. stable overnight. - Current Medication List Current Medications: Active Medications Acetaminophen (Ofirmev Injection -) 1,000 mg IVPB Q6H PRN PRN Reason: PAIN LEVEL 1-5 Last Admin: 09/26/17 08:30 Dose: 1,000 mg Bisacodyl (Dulcolax Suppository -) 10 mg RC DAILY PRN PRN Reason: CONSTIPATION Last Admin: 09/25/17 10:57 Dose: 10 mg Diltiazem HCl (Cardizem Injection -) 10 mg IVPUSH Q4H PRN PRN Reason: TACHYCARDIA Last Admin: 09/25/17 18:17 Dose: 10 mg Fentanyl (Duragesic 12mcg Patch -) 1 patch TD Q72H JN Stop: 10/03/17 11:09 Last Admin: 09/26/17 11:35 Dose: 1 patch Heparin Sodium (Porcine) (Heparin -) 5,000 unit SQ BID JN Last Admin: 09/26/17 10:28 Dose: 5,000 unit Hydralazine HCl (Apresoline Injection -) 5 mg IVPUSH Q6H PRN PRN Reason: HYPERTENSION Last Admin: 09/25/17 14:39 Dose: 5 mg Lactated Ringer's (Lactated Ringers Solution) 1,000 ml in 1,000 mls @ 75 mls/ hr IV ASDIR JN Last Admin: 09/26/17 10:26 Dose: 75 mls/hr Metronidazole (Flagyl 500mg Premixed Ivpb -) 500 mg in 100 mls @ 100 mls/hr IVPB Q6H-IV JN Last Admin: 09/26/17 14:06 Dose: 100 mls/hr Ceftriaxone Sodium 1 gm/ (Dextrose) 50 mls @ 100 mls/hr IVPB DAILY JN Last Admin: 09/26/17 09:00 Dose: 100 mls/hr Potassium Phosphate 15 mm/ (Sodium Chloride) 250 mls @ 62.5 mls/hr IVPB ONCE ONE Stop: 09/26/17 15:21 Last Admin: 09/26/17 12:56 Dose: 62.5 mls/hr Levothyroxine Sodium (Synthroid Injection -) 37.5 mcg IVPUSH DAILY [facility] Last Admin: 09/26/17 10:29 Dose: 37.5 mcg Metoprolol Succinate (Toprol Xl -) 100 mg PO DAILY [facility] Miscellaneous (Duragesic Patch Waste) 1 each MC PRN PRN PRN Reason: PAIN Morphine Sulfate (Morphine Sulfate) 1 mg IVPUSH Q4H PRN PRN Reason: PAIN LEVEL 6-10 Last Admin: 09/25/17 20:07 Dose: 1 mg Non-Formulary Medication (Diltiazem Hcl [Tiazac]) 360 mg PO DAILY [facility] Non-Formulary Medication (Hydralazine Hcl [Hydralazine Hcl]) 100 mg PO TID [facility] Pantoprazole Sodium (Protonix Iv) 40 mg IVPUSH DAILY [facility] Last Admin: 09/26/17 10:28 Dose: 40 mg Polyethylene Glycol (Miralax (For Daily Use) -) 17 gm PO TID [facility] Last Admin: 09/26/17 13:54 Dose: 17 gm Potassium Phos/Sodium Phos (Phos-Nak Packet -) 1 packet PO TID [facility] Last Admin: 09/26/17 13:00 Dose: 1 packet - Objective Vital Signs: Vital Signs Temperature 97.7 F 09/26/17 12:00 Pulse Rate 102 H 09/26/17 12:00 Respiratory Rate 18 09/26/17 12:00 Blood Pressure 142/91 09/26/17 12:00 O2 Sat by Pulse Oximetry (%) 100 09/26/17 08:00 Vital Signs Period Temp Pulse Resp BP Sys/Glass Pulse Ox Last 24 Hr 97.7 F-98.3 F 80-108 9-22 142-185/57-114 100-100 Intake & Output 09/25/17 09/26/17 09/26/17 23:59 07:59 15:59 Intake Total 1050 660 700 Output Total 2000 1200 Balance -950 -540 700 Intake: IV 700 560 1/2 Normal Saline 1,000 312 ml @ 75 mls/hr IV ASDIR JN Rx#:[id number] LACTATED RINGERS SOLUTION 388 560 1,000 ml In 1,000 ml @ 75 mls/hr IV ASDIR JN Rx #:[id number] IVPB 350 100 700 Output: Urine 2000 1200 Alvarez 1000 1200 Void 1000 Other: Voiding Method Indwelling Catheter Indwelling Catheter Bowel Movement No Constitutional: Yes: Well Nourished, No Distress, Calm, Thin Eyes: Yes: Conjunctiva Clear, EOM Intact HENT: Yes: Atraumatic, Normocephalic Neck: Yes: Supple, Trachea Midline Cardiovascular: Yes: Regular Rate and Rhythm, S1, S2 Respiratory: Yes: Regular, CTA Bilaterally Gastrointestinal: Yes: Normal Bowel Sounds, Soft. No: Tenderness, Tenderness, Epigastrium, Tenderness, Rebound Genitourinary: No: CVA Tenderness - Left, CVA Tenderness - Right Musculoskeletal: No: Back Pain, Joint Stiffness Extremities: No: Cold, Cool, Cyanosis Edema: No Peripheral Pulses WNL: Yes Peripheral Pulses: Left Radial: 2+, Right Radial: 2+, Left Doralis Pedis: 2+, Right Dorsalis Pedis: 2+ Integumentary: No: Erythema, Incision, Jaundice Neurological: Yes: Alert, Oriented Psychiatric: Yes: Alert, Oriented Labs: CBC, BMP 09/26/17 05:30 09/26/17 05:30 Problem List - Problems (1) Small bowel obstruction Assessment/Plan: 87 yo female MMP with chronic constipation and fecal impaction of recto sigmoid. She will not likely require surgical intervention but would benefit from a manual disimpaction and an effective bowel regimen. AXR shows resolved SBO. Porcelain gall bladder is noted, this does carry and increased risk of malignancy but given advanced age may be watched clinically and worked up by PMD. Clear Liquids advance as tolerated IVF hydration HOB to 30deg GI evaluation for endoscopy Adequate analgesia (preferably non-narcotic) enemas trend labs and correct electrolytes Serial abdominal exams will follow This patient is in guarded but stable condition. Time spent reviewing chart, examining patient, talking with providers and/or family and documentation is 35 minutes. Thank you for the opportunity to participate in the care of this patient. 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
[2017-09-26] MEDS: hydrALAZINE HCL 50 MG TABLET (FP) PO SCH ×2 (15:27→22:15)
--- NOTE | 2017-09-26 19:16 | EKG ---
Test Reason : Blood Pressure : / mmHG Vent. Rate : 100 BPM Atrial Rate : 100 BPM P-R Int : 154 ms QRS Dur : 072 ms QT Int : 350 ms P-R-T Axes : 068 -27 038 degrees QTc Int : 451 ms SINUS RHYTHM WITH OCCASIONAL PREMATURE VENTRICULAR COMPLEXES LOW VOLTAGE QRS INFERIOR INFARCT (CITED ON OR BEFORE 24-SEP-2017) CANNOT RULE OUT ANTERIOR INFARCT , AGE UNDETERMINED ST ELEVATION CONSIDER ANTEROLATERAL INJURY OR ACUTE INFARCT ABNORMAL ECG Confirmed by MD MARIBELL, LUCIANO ([id number]) on 09/26/2017 7:16:32 PM Referred By: Ester LAM Confirmed By:LUCIANO REYNA MD
[2017-09-26] MEDS: MORPHINE SULFATE 2 MG/ML VIAL IVPUSH PRN (23:33)
[2017-09-27] MEDS: POLYETHYLENE GLYCOL 3350 119 GM BTL PO SCH ×3 (00:28→15:32)
[2017-09-27] MEDS: MORPHINE SULFATE 2 MG/ML VIAL IVPUSH PRN ×4 (02:39→21:41)
[2017-09-27] MEDS: LACTATED RINGERS SOLUTION 1,000 ML/1,000 ML INFUS.BAG IV SCH ×2 (02:40→21:50)
[2017-09-27] MEDS: NAPH,MB-DB/K PH,MBDB POWDER PACKET PO SCH ×3 (05:55→21:41)
[2017-09-27] MEDS: hydrALAZINE HCL 50 MG TABLET (FP) PO SCH ×3 (05:55→21:41)
[2017-09-27 06:33] LABS: HEMATOCRIT 38.6 % (32.4-45.2); HEMOGLOBIN 13.6 GM/dL (10.7-15.3); MCH 30.6 pg (25.7-33.7); MCHC 35.3 g/dl (32.0-36.0); MEAN CELL VOLUME 86.9 fl (80-96); MEAN PLT VOLUME 7.8 fl (7.5-11.1); PLATELET COUNT 350 K/MM3 (134-434); RBC 4.44 M/mm3 (3.60-5.2); RDW 13.1 % (11.6-15.6)
[2017-09-27 06:51] LABS: ALBUMIN 3.3 g/dl (3.4-5.0); ANION GAP 10 (8-16); BLOOD UREA NITROGEN 11 mg/dL (7-18); CHLORIDE 105 mmol/L (98-107); CO2 27 mmol/L (21-32); GLUCOSE,RANDOM 137 mg/dL (74-106); SODIUM 142 mmol/L (136-145)
[2017-09-27 06:56] LABS: ALK PHOS 50 U/L (45-117); BILIRUBIN,TOTAL 0.6 mg/dL (0.2-1.0); CALCIUM 8.4 mg/dL (8.5-10.1); CREATININE 0.7 mg/dL (0.55-1.02); PHOSPHOROUS 1.8 mg/dL (2.5-4.9); SGOT/AST 57 U/L (15-37); SGPT/ALT 22 U/L (12-78); TOT PROT 6.9 g/dl (6.4-8.2)
[2017-09-27 07:02] LABS: POTASSIUM 2.9 mmol/L (3.5-5.1)
[2017-09-27] MEDS ORDERED: POTASSIUM CHLORIDE TABS 20 MEQ TABLET.ER (FP) PO ONE (07:21)
[2017-09-27] MEDS: KCL 10 MEQ IVPB 10 MEQ/100 ML INFUS.BAG IVPB SCH ×3 (08:30→12:50)
[2017-09-27] MEDS ORDERED: cefTRIAXone SODIUM 1 GM VIAL ONE (09:11)
[2017-09-27] MEDS ORDERED: DEXTROSE 5%-WATER - 50 ML IVPB ONE (09:12)
[2017-09-27] MEDS: CEFTRIAXONE 1 GM in DEXTROSE 5%-WATER - 50 ML IVPB SCH (09:22)
[2017-09-27] MEDS: PANTOPRAZOLE SODIUM 40 MG VIAL IVPUSH SCH (09:22)
[2017-09-27] MEDS: HEPARIN NA (PORCINE) 5,000 UNITS/ML 1ML VIAL SQ SCH ×2 (10:50→21:41)
[2017-09-27] MEDS ORDERED: PT OWN MED DRAWER 7, Y5N ONE (10:51)
[2017-09-27] MEDS: LEVOTHYROXINE SODIUM 100 MCG VIAL IVPUSH SCH (10:52)
--- NOTE | 2017-09-27 10:55 | PN ---
Teaching Attending Note Name of Resident: Ronnie Kent ATTENDING PHYSICIAN STATEMENT I saw and evaluated the patient. I reviewed the resident's note and discussed the case with the resident. I agree with the resident's findings and plan as documented. SUBJECTIVE: Pt seen and examined in the ICU. Still some abdominal pain, hip and back pain. Had loose bowel movement overnight. Some nausea but no vomiting. OBJECTIVE: Vital Signs Period Temp Pulse Resp BP Sys/Glass Pulse Ox Last 24 Hr 97.7 F-98.7 F 72-108 17-25 107-148/62-96 100 Intake & Output 09/24/17 09/25/17 09/26/17 09/27/17 23:59 23:59 23:59 23:59 Intake Total 1050 2460 1057 Output Total 3100 2300 150 Balance -2050 160 907 Weight 61.689 kg 75.296 kg 71.412 kg Gen: NAD at rest Heart: RRR Lung: decreased breath sounds at the bases Abd: softly distended, mild tenderness lower quadrants Ext: no edema CBC, BMP 09/27/17 05:30 09/27/17 05:30 Active Medications Bisacodyl (Dulcolax Suppository -) 10 mg RC DAILY PRN PRN Reason: CONSTIPATION Last Admin: 09/25/17 10:57 Dose: 10 mg Diltiazem HCl (Cardizem Injection -) 10 mg IVPUSH Q4H PRN PRN Reason: TACHYCARDIA Last Admin: 09/25/17 18:17 Dose: 10 mg Diltiazem HCl (Cardizem Cd -) 360 mg PO DAILY [facility] Last Admin: 09/27/17 09:22 Dose: 360 mg Fentanyl (Duragesic 12mcg Patch -) 1 patch TD Q72H [facility] Stop: 10/03/17 11:09 Last Admin: 09/26/17 11:35 Dose: 1 patch Heparin Sodium (Porcine) (Heparin -) 5,000 unit SQ BID [facility] Last Admin: 09/27/17 10:50 Dose: 5,000 unit Hydralazine HCl (Apresoline Injection -) 5 mg IVPUSH Q6H PRN PRN Reason: HYPERTENSION Last Admin: 09/25/17 14:39 Dose: 5 mg Hydralazine HCl (Apresoline -) 100 mg PO TID [facility] Last Admin: 09/27/17 05:55 Dose: 100 mg Lactated Ringer's (Lactated Ringers Solution) 1,000 ml in 1,000 mls @ 75 mls/ hr IV ASDIR [facility] Last Admin: 09/27/17 02:40 Dose: 75 mls/hr Metronidazole (Flagyl 500mg Premixed Ivpb -) 500 mg in 100 mls @ 100 mls/hr IVPB Q6H-IV [facility] Last Admin: 09/27/17 09:45 Dose: 100 mls/hr Ceftriaxone Sodium 1 gm/ (Dextrose) 50 mls @ 100 mls/hr IVPB DAILY [facility] Last Admin: 09/27/17 09:22 Dose: 100 mls/hr Levothyroxine Sodium (Synthroid Injection -) 37.5 mcg IVPUSH DAILY [facility] Last Admin: 09/27/17 10:52 Dose: 37.5 mcg Metoprolol Succinate (Toprol Xl -) 100 mg PO DAILY [facility] Last Admin: 09/27/17 09:23 Dose: 100 mg Miscellaneous (Duragesic Patch Waste) 1 each MC PRN PRN PRN Reason: PAIN Morphine Sulfate (Morphine Sulfate) 1 mg IVPUSH Q4H PRN PRN Reason: PAIN LEVEL 6-10 Last Admin: 09/27/17 09:23 Dose: 1 mg Pantoprazole Sodium (Protonix Iv) 40 mg IVPUSH DAILY [facility] Last Admin: 09/27/17 09:22 Dose: 40 mg Polyethylene Glycol (Miralax (For Daily Use) -) 17 gm PO TID [facility] Last Admin: 09/27/17 05:56 Dose: Not Given Potassium Phos/Sodium Phos (Phos-Nak Packet -) 1 packet PO TID [facility] Last Admin: 09/27/17 05:55 Dose: 1 packet ASSESSMENT AND PLAN: Partial Small Bowel Obstruction Opiate Dependence Fecal Impaction Diverticulosis Lactic Acidosis HTN Hypothyroidism - pain control - bowel regimen - PO per GI - consider relistor - IVF - replete lytes - continue empiric antibiotics - DVT prophylaxis - can monitor on floor
--- NOTE | 2017-09-27 11:51 | PN ---
Physical Exam: SUBJECTIVE: Patient seen and examined OBJECTIVE: Vital Signs Temperature 98.0 F 09/27/17 10:00 Pulse Rate 72 09/27/17 10:00 Respiratory Rate 24 09/27/17 10:00 Blood Pressure 130/96 09/27/17 10:00 O2 Sat by Pulse Oximetry (%) 100 09/26/17 22:00 GENERAL: The patient is awake, alert, and fully oriented, in no acute distress. HEAD: Normal with no signs of trauma. NECK: Trachea midline, full range of motion, supple. LUNGS: Breath sounds equal, clear to auscultation bilaterally, no wheezes, no crackles, no accessory muscle use. HEART: Regular rate and rhythm, S1, S2 without murmur, rub or gallop. ABDOMEN: Soft, mild tenderness to palpation, nondistended, normoactive bowel sounds, no guarding, no rebound. EXTREMITIES: 2+ pulses, warm, well-perfused, no edema. NEUROLOGICAL: Cranial nerves II through X grossly intact. Normal speech, gait not observed. SKIN: Warm, dry, normal turgor, no rashes or lesions noted CBC, BMP 09/27/17 05:30 09/27/17 05:30 Active Medications Bisacodyl (Dulcolax Suppository -) 10 mg RC DAILY PRN PRN Reason: CONSTIPATION Last Admin: 09/25/17 10:57 Dose: 10 mg Diltiazem HCl (Cardizem Injection -) 10 mg IVPUSH Q4H PRN PRN Reason: TACHYCARDIA Last Admin: 09/25/17 18:17 Dose: 10 mg Diltiazem HCl (Cardizem Cd -) 360 mg PO DAILY [facility] Last Admin: 09/27/17 09:22 Dose: 360 mg Heparin Sodium (Porcine) (Heparin -) 5,000 unit SQ BID [facility] Last Admin: 09/27/17 10:50 Dose: 5,000 unit Hydralazine HCl (Apresoline Injection -) 5 mg IVPUSH Q6H PRN PRN Reason: HYPERTENSION Last Admin: 09/25/17 14:39 Dose: 5 mg Hydralazine HCl (Apresoline -) 100 mg PO TID [facility] Last Admin: 09/27/17 05:55 Dose: 100 mg Lactated Ringer's (Lactated Ringers Solution) 1,000 ml in 1,000 mls @ 75 mls/ hr IV ASDIR [facility] Last Admin: 09/27/17 02:40 Dose: 75 mls/hr Metronidazole (Flagyl 500mg Premixed Ivpb -) 500 mg in 100 mls @ 100 mls/hr IVPB Q6H-IV [facility] Last Admin: 09/27/17 09:45 Dose: 100 mls/hr Ceftriaxone Sodium 1 gm/ (Dextrose) 50 mls @ 100 mls/hr IVPB DAILY [facility] Last Admin: 09/27/17 09:22 Dose: 100 mls/hr Levothyroxine Sodium (Synthroid Injection -) 37.5 mcg IVPUSH DAILY [facility] Last Admin: 09/27/17 10:52 Dose: 37.5 mcg Methylnaltrexone [place] (Relistor -) 12 mg SQ DAILY [facility] Metoprolol Succinate (Toprol Xl -) 100 mg PO DAILY [facility] Last Admin: 09/27/17 09:23 Dose: 100 mg Morphine Sulfate (Morphine Sulfate) 1 mg IVPUSH Q4H PRN PRN Reason: PAIN LEVEL 6-10 Last Admin: 09/27/17 09:23 Dose: 1 mg Pantoprazole Sodium (Protonix Iv) 40 mg IVPUSH DAILY [facility] Last Admin: 09/27/17 09:22 Dose: 40 mg Polyethylene Glycol (Miralax (For Daily Use) -) 17 gm PO TID [facility] Last Admin: 09/27/17 05:56 Dose: Not Given Potassium Phos/Sodium Phos (Phos-Nak Packet -) 1 packet PO TID [facility] Last Admin: 09/27/17 05:55 Dose: 1 packet IMAGING: CXR: Since the prior study of 05/11/2016, there is a larger heart with large hiatal hernia, sclerotic knob , weak or inspiration and central congestive changes with some minimal atelectatic changes at the bases. The soft tissues are intact. There are degenerative changes. Follow-up recommended. CTAP: a mid to distal small bowel obstruction is noted as discussed above. Cholelithiasis versus prominent gallbladder wall calcification. Stable mild extrahepatic and minimal intrahepatic biliary tract dilatation. Probable diffuse hepatic steatosis. Small bowel obstruction. Hiatal hernia. Bilateral hip replacements. No sign of free air. Correlation follow-up recommended. ASSESSMENT/PLAN: The patient is an 87 yo F w/ pmhx of HTN, hypothyroidism, diverticulosis, melanoma, basal cell carcinoma, and hiatal hernia presented with 1 day h/o nausea and vomiting associated with abdominal pain. #SBO -NGT removed x2 -Morphine 4 mg Q6H for pain -NPO -surgical and GI evaluation: s/p disimpaction, medical management currently. #Leukocytosis w/ elevated lactate -Pt is afebrile, with resolved WBC -lactate has normalized. -urine cx pending -flagyl 500mg q6h -ceftriaxone 1g daily #MEL -likely due to dehydration as pt has poor PO intake and now NPO -avoid nephrotoxic meds -gentle hydration with LR @75cc/hr #HTN -Hydralazine 5 mg IV Q6H, if systolic BP >160 -cont to monitor BP #Hypothyroidism -Levothyroxine 37.5 mcg IVP QD #DVT Ppx -Heparin 5k units SQ TID #FEN -LR @ 75cc/hr -lytes repleted by ICU team. recheck lytes in AM -NPO dispo -full code
--- NOTE | 2017-09-27 11:51 | PN ---
Physical Exam: SUBJECTIVE: Patient seen and examined. No acute events overnight. Per nurse, pt had nonbloody, nonwatery diarrhea last night. OBJECTIVE: Vital Signs Temperature 98.0 F 09/27/17 10:00 Pulse Rate 77 09/27/17 14:00 Respiratory Rate 18 09/27/17 14:00 Blood Pressure 128/68 09/27/17 14:00 O2 Sat by Pulse Oximetry (%) 100 09/27/17 09:00 GENERAL: The patient is awake, alert, and fully oriented, in no acute distress. HEAD: Normal with no signs of trauma. NECK: Trachea midline, full range of motion, supple. LUNGS: Breath sounds equal, clear to auscultation bilaterally, no wheezes, no crackles, no accessory muscle use. HEART: Regular rate and rhythm, S1, S2 without murmur, rub or gallop. ABDOMEN: Soft, mild tenderness to palpation, nondistended, normoactive bowel sounds, no guarding, no rebound. EXTREMITIES: 2+ pulses, warm, well-perfused, no edema. NEUROLOGICAL: Cranial nerves II through X grossly intact. Normal speech, gait not observed. SKIN: Warm, dry, normal turgor, no rashes or lesions noted CBC, BMP 09/27/17 05:30 09/27/17 05:30 Active Medications Bisacodyl (Dulcolax Suppository -) 10 mg RC DAILY PRN PRN Reason: CONSTIPATION Last Admin: 09/25/17 10:57 Dose: 10 mg Diltiazem HCl (Cardizem Injection -) 10 mg IVPUSH Q4H PRN PRN Reason: TACHYCARDIA Last Admin: 09/25/17 18:17 Dose: 10 mg Diltiazem HCl (Cardizem Cd -) 360 mg PO DAILY [facility] Last Admin: 09/27/17 09:22 Dose: 360 mg Heparin Sodium (Porcine) (Heparin -) 5,000 unit SQ BID [facility] Last Admin: 09/27/17 10:50 Dose: 5,000 unit Hydralazine HCl (Apresoline Injection -) 5 mg IVPUSH Q6H PRN PRN Reason: HYPERTENSION Last Admin: 09/25/17 14:39 Dose: 5 mg Hydralazine HCl (Apresoline -) 100 mg PO TID [facility] Last Admin: 09/27/17 14:00 Dose: 100 mg Lactated Ringer's (Lactated Ringers Solution) 1,000 ml in 1,000 mls @ 75 mls/ hr IV ASDIR [facility] Last Admin: 09/27/17 02:40 Dose: 75 mls/hr Metronidazole (Flagyl 500mg Premixed Ivpb -) 500 mg in 100 mls @ 100 mls/hr IVPB Q6H-IV [facility] Last Admin: 09/27/17 15:34 Dose: 100 mls/hr Ceftriaxone Sodium 1 gm/ (Dextrose) 50 mls @ 100 mls/hr IVPB DAILY [facility] Last Admin: 09/27/17 09:22 Dose: 100 mls/hr Levothyroxine Sodium (Synthroid Injection -) 37.5 mcg IVPUSH DAILY [facility] Last Admin: 09/27/17 10:52 Dose: 37.5 mcg Methylnaltrexone [place] (Relistor -) 12 mg SQ DAILY [facility] Last Admin: 09/27/17 15:33 Dose: 12 mg Metoprolol Succinate (Toprol Xl -) 100 mg PO DAILY [facility] Last Admin: 09/27/17 09:23 Dose: 100 mg Morphine Sulfate (Morphine Sulfate) 1 mg IVPUSH Q4H PRN PRN Reason: PAIN LEVEL 6-10 Last Admin: 09/27/17 09:23 Dose: 1 mg Pantoprazole Sodium (Protonix Iv) 40 mg IVPUSH DAILY [facility] Last Admin: 09/27/17 09:22 Dose: 40 mg Polyethylene Glycol (Miralax (For Daily Use) -) 17 gm PO TID [facility] Last Admin: 09/27/17 15:32 Dose: Not Given Potassium Phos/Sodium Phos (Phos-Nak Packet -) 1 packet PO TID [facility] Last Admin: 09/27/17 14:00 Dose: 1 packet IMAGING: CTAP: recurrent SBO w/ transition zone in central/R paramedian aspect of lower abdomen. Maximum dilated SB luminal diameter about 7.4 cm; focal calcification in region of GB fundus which may represent calculus vs. wall calcification. Probably diffuse hepatic steatosis. No evidence of acute diverticulitis. Cholelithiasis vs. prominent GB wall calcification. CXR: Since the prior study of 05/11/2016, there is a larger heart with large hiatal hernia, sclerotic knob , weak or inspiration and central congestive changes with some minimal atelectatic changes at the bases. The soft tissues are intact. There are degenerative changes. ASSESSMENT/PLAN: The patient is an 87 yo F w/ pmhx of HTN, hypothyroidism, diverticulosis, melanoma, basal cell carcinoma, and hiatal hernia presented with 1 day h/o nausea and vomiting associated with abdominal pain. #SBO; Diarrhea reported last night, tolerating CLD today. -NGT removed x2 -Morphine 4 mg Q6H for pain -surgical and GI evaluation: s/p disimpaction, medical management currently. -cont to monitor BM, serial abd exams #Leukocytosis w/ elevated lactate -Pt is afebrile, WBC increased, but pt clinically asymptomatic. -lactate has normalized. -urine cx pending -flagyl 500mg q6h -ceftriaxone 1g daily #Hypokalemia; K+ 2.9 today. -KCl 40 meq PO given once -KPhos 250 cc @ 62.5cc/hr -recheck BMP in AM #MEL; Resolved. -gentle hydration with LR @75cc/hr -avoid nephrotoxic meds #HTN -Hydralazine 5 mg IV Q6H, if systolic BP >160 -cont to monitor BP #Hypothyroidism -Levothyroxine 37.5 mcg IVP QD #DVT Ppx -Heparin 5000U SQ TID #FEN -LR @ 75cc/hr -lytes repleted by ICU team. recheck lytes in AM -CLD dispo -full code Visit type - Emergency Visit Emergency Visit: Yes ED Registration Date: 09/24/17 Care time: The patient presented to the Emergency Department on the above date and was hospitalized for further evaluation of their emergent condition. - New Patient This patient is new to me today: No - Critical Care Critical Care patient: Yes Total Critical Care Time (in minutes): 35 Critical Care Statement: The care of this patient involved high complexity decision making to prevent further life threatening deterioration of the patient 's condition and/or to evaluate & treat vital organ system(s) failure or risk of failure.
[2017-09-27 12:13] LABS: PLATELET ESTIMATE SLT INCREASE
--- NOTE | 2017-09-27 14:50 | PN ---
Teaching Attending Note Name of Resident: Jyothi Shafer ATTENDING PHYSICIAN STATEMENT I saw and evaluated the patient. I reviewed the resident's note and discussed the case with the resident. I agree with the resident's findings and plan as documented. SUBJECTIVE: Feels better, but continues to complain of having back pain and abdominal pain, in ICU. OBJECTIVE: Vital Signs Temperature 98.0 F 09/27/17 10:00 Pulse Rate 77 09/27/17 14:00 Respiratory Rate 18 09/27/17 14:00 Blood Pressure 128/68 09/27/17 14:00 O2 Sat by Pulse Oximetry (%) 100 09/27/17 09:00 GENERAL: AAOx3. in NAD . HEENT: AT/NC. Dry. NECK: supple without lymphadenopathy, JVD, or masses. LUNGS: Clear to auscultation anteriorly. HEART: RRR. Normal S1, S2. SEM2/6 ,no rubs, or gallop noted. ABDOMEN: soft , NT , positive for BS. MUSCULOSKELETAL: No peripheral edema noted. EXTREMITIES: 2+ pulses, warm, well-perfused. No cyanosis. No clubbing. NEUROLOGICAL: Normal speech. SKIN: Warm, dry, normal turgor, no rashes or lesions noted, normal capillary refill. CBCD WBC 11.0 K/mm3 (4.0-10.0) H 09/27/17 05:30 RBC 4.44 M/mm3 (3.60-5.2) 09/27/17 05:30 Hgb 13.6 GM/dL (10.7-15.3) 09/27/17 05:30 Hct 38.6 % (32.4-45.2) 09/27/17 05:30 MCV 86.9 fl (80-96) 09/27/17 05:30 MCHC 35.3 g/dl (32.0-36.0) 09/27/17 05:30 RDW 13.1 % (11.6-15.6) 09/27/17 05:30 Plt Count 350 K/MM3 (134-434) 09/27/17 05:30 MPV 7.8 fl (7.5-11.1) 09/27/17 05:30 CMP Sodium 142 mmol/L (136-145) 09/27/17 05:30 Potassium 2.9 mmol/L (3.5-5.1) L* 09/27/17 05:30 Chloride 105 mmol/L (98-107) 09/27/17 05:30 Carbon Dioxide 27 mmol/L (21-32) 09/27/17 05:30 Anion Gap 10 (8-16) 09/27/17 05:30 BUN 11 mg/dL (7-18) 09/27/17 05:30 Creatinine 0.7 mg/dL (0.55-1.02) 09/27/17 05:30 Creat Clearance w eGFR > 60 (>60) 09/27/17 05:30 Random Glucose 137 mg/dL (74-106) H 09/27/17 05:30 Calcium 8.4 mg/dL (8.5-10.1) L 09/27/17 05:30 Total Bilirubin 0.6 mg/dL (0.2-1.0) 09/27/17 05:30 AST 57 U/L (15-37) H 09/27/17 05:30 ALT 22 U/L (12-78) 09/27/17 05:30 Alkaline Phosphatase 50 U/L (45-117) D 09/27/17 05:30 Total Protein 6.9 g/dl (6.4-8.2) 09/27/17 05:30 Albumin 3.3 g/dl (3.4-5.0) L 09/27/17 05:30 CARDIAC ENZYMES Troponin I < 0.02 ng/ml (0.00-0.05) 09/24/17 18:16 Current Medications Generic Name Dose Route Start Last Admin Trade Name Federico PRN Reason Stop Dose Admin Bisacodyl 10 mg 09/25/17 10:22 09/25/17 10:57 Dulcolax Suppository - RC 10 mg DAILY PRN Administration CONSTIPATION Diltiazem HCl 10 mg 09/25/17 17:58 09/25/17 18:17 Cardizem Injection - IVPUSH 10 mg Q4H PRN Administration TACHYCARDIA Diltiazem HCl 360 mg 09/26/17 14:15 09/27/17 09:22 Cardizem Cd - PO 360 mg DAILY [facility] Administration Heparin Sodium (Porcine) 5,000 unit 09/25/17 10:00 09/27/17 10:50 Heparin - SQ 5,000 unit BID [facility]N Administration Hydralazine HCl 5 mg 09/25/17 01:45 09/25/17 14:39 Apresoline Injection - IVPUSH 5 mg Q6H PRN Administration HYPERTENSION Hydralazine HCl 100 mg 09/26/17 14:15 09/27/17 05:55 Apresoline - PO 100 mg TID [facility]N Administration Lactated Ringer's 1,000 ml in 1,000 mls @ 75 mls/hr 09/25/17 17:15 09/27/17 02:40 Lactated Ringers Solution IV 75 mls/hr ASDIR [facility]N Administration Metronidazole 500 mg in 100 mls @ 100 mls/hr 09/25/17 17:45 09/27/17 09:45 Flagyl 500mg Premixed Ivpb - IVPB 100 mls/hr Q6H-IV [facility] Administration Ceftriaxone Sodium 1 gm/ 50 mls @ 100 mls/hr 09/25/17 18:00 09/27/17 09:22 Dextrose IVPB 100 mls/hr DAILY [facility]N Administration Levothyroxine Sodium 37.5 mcg 09/25/17 10:00 09/27/17 10:52 Synthroid Injection - IVPUSH 37.5 mcg DAILY [facility] Administration Methylnaltrexone [place] 12 mg 09/27/17 11:30 Relistor - SQ DAILY [facility] Metoprolol Succinate 100 mg 09/26/17 14:15 09/27/17 09:23 Toprol Xl - PO 100 mg DAILY [facility] Administration Morphine Sulfate 1 mg 09/25/17 09:55 09/27/17 09:23 Morphine Sulfate IVPUSH 1 mg Q4H PRN Administration PAIN LEVEL 6-10 Pantoprazole Sodium 40 mg 09/25/17 18:00 09/27/17 09:22 Protonix Iv IVPUSH 40 mg DAILY [facility]N Administration Polyethylene Glycol 17 gm 09/26/17 14:00 09/27/17 05:56 Miralax (For Daily Use) - PO Not Given TID [facility] Potassium Phos/Sodium Phos 1 packet 09/26/17 14:00 09/27/17 05:55 Phos-Nak Packet - PO 1 packet TID [facility]N Administration Home Medications Medication Instructions Recorded Levothyroxine Sodium [Levoxyl] 75 mcg PO DAILY 09/24/17 Amitriptyline HCl 25 mg PO TID PRN 09/26/17 Diltiazem HCl [Tiazac] 360 mg PO DAILY 09/26/17 Gabapentin [Neurontin -] 100 mg PO TID PRN 09/26/17 Hydralazine HCl 100 mg PO TID 09/26/17 Metoprolol Succinate [Toprol Xl] 100 mg PO DAILY 09/26/17 Oxycodone HCl/Acetaminophen 1 each PO TID PRN 09/26/17 [Percocet 10-325 mg Tablet] Tizanidine HCl [Zanaflex] 4 mg PO BID PRN 09/26/17 IMAGING: CTAP: recurrent SBO w/ transition zone in central/R paramedian aspect of lower abdomen. Maximum dilated SB luminal diameter about 7.4 cm; focal calcification in region of GB fundus which may represent calculus vs. wall calcification. Probably diffuse hepatic steatosis. No evidence of acute diverticulitis. Cholelithiasis vs. prominent GB wall calcification. CXR: Since the prior study of 05/11/2016, there is a larger heart with large hiatal hernia, sclerotic knob , weak or inspiration and central congestive changes with some minimal atelectatic changes at the bases. The soft tissues are intact. There are degenerative changes. ASSESSMENT/PLAN: Patient is an 87yo female with pmhx of HTN, hypothyroidism, diverticulosis, melanoma, basal cell carcinoma, and hiatal hernia presented with abdominal pain with nausea and vomiting x 1 day and was found to have SBO on CTAP # Small bowel obstruction - on clear liquid diet, improving on Morphine . GI consult appreciated. # Electrolyte abnormality ( hypophosphotemia/hypokalemia/ hypomag) repleted, repeat the levels in am # MEL - improved # Acute Constipation: on dulcolax , Miralax, GI on the case. # Chronic pain on Percocet at home, now on Morphine IV DVT prophylaxis - Heparin 5000u sq tid. Advance directives - Full code
[2017-09-27] MEDS: Methylnaltrexone Bromide 12 MG/0.6 ML KIT SQ SCH (15:33)
--- NOTE | 2017-09-27 17:13 | PN ---
Progress Note, Physician Chief Complaint: SBO History of Present Illness: 87yo female PMH HTN, hypothroidism, and diverticulosis who presents with 1 day of nausea and vomiting per her son. This was associated diffuse achy/cramping abdominal pain that is worse in the upper abdomen. Now having bowel movements. stable overnight. - Current Medication List Current Medications: Active Medications Bisacodyl (Dulcolax Suppository -) 10 mg RC DAILY PRN PRN Reason: CONSTIPATION Last Admin: 09/25/17 10:57 Dose: 10 mg Diltiazem HCl (Cardizem Injection -) 10 mg IVPUSH Q4H PRN PRN Reason: TACHYCARDIA Last Admin: 09/25/17 18:17 Dose: 10 mg Diltiazem HCl (Cardizem Cd -) 360 mg PO DAILY [facility] Last Admin: 09/27/17 09:22 Dose: 360 mg Heparin Sodium (Porcine) (Heparin -) 5,000 unit SQ BID JN Last Admin: 09/27/17 10:50 Dose: 5,000 unit Hydralazine HCl (Apresoline Injection -) 5 mg IVPUSH Q6H PRN PRN Reason: HYPERTENSION Last Admin: 09/25/17 14:39 Dose: 5 mg Hydralazine HCl (Apresoline -) 100 mg PO TID JN Last Admin: 09/27/17 14:00 Dose: 100 mg Lactated Ringer's (Lactated Ringers Solution) 1,000 ml in 1,000 mls @ 75 mls/ hr IV ASDIR JN Last Admin: 09/27/17 02:40 Dose: 75 mls/hr Metronidazole (Flagyl 500mg Premixed Ivpb -) 500 mg in 100 mls @ 100 mls/hr IVPB Q6H-IV JN Last Admin: 09/27/17 15:34 Dose: 100 mls/hr Ceftriaxone Sodium 1 gm/ (Dextrose) 50 mls @ 100 mls/hr IVPB DAILY [facility] Last Admin: 09/27/17 09:22 Dose: 100 mls/hr Levothyroxine Sodium (Synthroid Injection -) 37.5 mcg IVPUSH DAILY JN Last Admin: 09/27/17 10:52 Dose: 37.5 mcg Methylnaltrexone [place] (Relistor -) 12 mg SQ DAILY JN Last Admin: 09/27/17 15:33 Dose: 12 mg Metoprolol Succinate (Toprol Xl -) 100 mg PO DAILY [facility] Last Admin: 09/27/17 09:23 Dose: 100 mg Morphine Sulfate (Morphine Sulfate) 1 mg IVPUSH Q4H PRN PRN Reason: PAIN LEVEL 6-10 Last Admin: 09/27/17 09:23 Dose: 1 mg Pantoprazole Sodium (Protonix Iv) 40 mg IVPUSH DAILY [facility] Last Admin: 09/27/17 09:22 Dose: 40 mg Polyethylene Glycol (Miralax (For Daily Use) -) 17 gm PO TID [facility] Last Admin: 09/27/17 15:32 Dose: Not Given Potassium Phos/Sodium Phos (Phos-Nak Packet -) 1 packet PO TID [facility] Last Admin: 09/27/17 14:00 Dose: 1 packet - Objective Vital Signs: Vital Signs Temperature 98.0 F 09/27/17 10:00 Pulse Rate 77 09/27/17 14:00 Respiratory Rate 18 09/27/17 14:00 Blood Pressure 128/68 09/27/17 14:00 O2 Sat by Pulse Oximetry (%) 100 09/27/17 09:00 Vital Signs Period Temp Pulse Resp BP Sys/Glass Pulse Ox Last 24 Hr 98.0 F-98.7 F 69-89 17-25 107-145/62-96 100-100 Intake & Output 09/27/17 09/27/17 09/27/17 07:59 15:59 23:59 Intake Total 1057 950 Output Total 150 420 Balance 907 530 Weight 157 lb 7 oz 157 lb Intake: IV 757 LACTATED RINGERS SOLUTION 757 1,000 ml In 1,000 ml @ 75 mls/hr IV ASDIR [facility] Rx #:[id number] IVPB 200 450 Oral 100 500 Output: Urine 150 420 Alvarez 200 Void 150 220 Other: Voiding Method Bedpan Bowel Movement Yes # Bowel Movements 1 Height 5 ft 3 in Body Mass Index (BMI) 27.8 Weight Measurement Method Built in [facility] Constitutional: Yes: Well Nourished, No Distress, Calm Eyes: Yes: Conjunctiva Clear, EOM Intact HENT: Yes: Atraumatic, Normocephalic Neck: Yes: Supple, Trachea Midline Cardiovascular: Yes: Regular Rate and Rhythm, S1, S2 Respiratory: Yes: Regular, CTA Bilaterally Gastrointestinal: Yes: Normal Bowel Sounds, Soft. No: Distention, Tenderness, Tenderness, Rebound ...Rectal Exam: Yes: Deferred Genitourinary: No: CVA Tenderness - Left, CVA Tenderness - Right Musculoskeletal: No: Muscle Pain, Muscle Weakness Extremities: No: Cool, Cyanosis Neurological: Yes: Alert, Oriented Psychiatric: Yes: Alert, Oriented Labs: CBC, BMP 09/27/17 05:30 09/27/17 05:30 Problem List - Problems (1) Small bowel obstruction Assessment/Plan: 87 yo female MMP with chronic constipation and fecal impaction of recto sigmoid. She will not likely require surgical intervention but would benefit from a manual disimpaction and an effective bowel regimen. AXR shows resolved SBO. Porcelain gall bladder is noted, this does carry and increased risk of malignancy but given advanced age may be watched clinically and worked up by PMD. Clear Liquids advance as tolerated IVF hydration HOB to 30deg GI evaluation for endoscopy Adequate analgesia (preferably non-narcotic) enemas trend labs and correct electrolytes Serial abdominal exams will follow This patient is in guarded but stable condition. Time spent reviewing chart, examining patient, talking with providers and/or family and documentation is 35 minutes. Thank you for the opportunity to participate in the care of this patient. 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
--- NOTE | 2017-09-27 19:09 | PN ---
Physical Exam: SUBJECTIVE: Patient seen and examined this am in icu. Pt sitting in chair, c/o abdomen and back pain. Endorses loose, watery bowel movement overnight. Denies cp or sob. OBJECTIVE: Vital Signs Period Temp Pulse Resp BP Sys/Glass Pulse Ox Last 24 Hr 98.0 F-98.7 F 69-88 17-25 107-150/60-96 100-100 GENERAL: AAOx3. Pleasent HEAD: NC/AT EYES: Glasses. EOMI. ENT: MMM NECK: Supple, No JVD LUNGS: Dec BS at bases HEART: RRR ABDOMEN: Tender abdomen EXTREMITIES: 2+ pulses, warm NEUROLOGICAL: No Neuro Deficits PSYCH: Normal mood, normal affect. SKIN: No rashes or lesions appreciated Laboratory Results - last 24 hr 09/27/17 09/27/17 05:30 05:30 WBC 11.0 H RBC 4.44 Hgb 13.6 Hct 38.6 MCV 86.9 MCH 30.6 MCHC 35.3 RDW 13.1 Plt Count 350 MPV 7.8 Absolute Neuts (auto) 7.4 Neutrophils % No Result Required. Neutrophils % (Manual) 70.4 Band Neutrophils % 0.0 Lymphocytes % No Result Required. Lymphocytes % (Manual) 16.4 Monocytes % (Manual) 11 H Eosinophils % (Manual) 1.0 Basophils % (Manual) 1.0 Myelocytes % (Man) 0 Promyelocytes % (Man) 0 Blast Cells % (Manual) 0 Nucleated RBC % 0 Metamyelocytes 0 Platelet Estimate Slt increase Sodium 142 Potassium 2.9 L* Chloride 105 Carbon Dioxide 27 Anion Gap 10 BUN 11 Creatinine 0.7 Creat Clearance w eGFR > 60 Random Glucose 137 H Calcium 8.4 L Phosphorus 1.8 L Magnesium 2.0 Total Bilirubin 0.6 AST 57 H ALT 22 Alkaline Phosphatase 50 D Total Protein 6.9 Albumin 3.3 L Active Medications Generic Name Dose Route Start Last Admin Trade Name Freq PRN Reason Stop Dose Admin Bisacodyl 10 mg 09/25/17 10:22 09/25/17 10:57 Dulcolax Suppository - RC 10 mg DAILY PRN Administration CONSTIPATION Diltiazem HCl 10 mg 09/25/17 17:58 09/25/17 18:17 Cardizem Injection - IVPUSH 10 mg Q4H PRN Administration TACHYCARDIA Diltiazem HCl 360 mg 09/26/17 14:15 09/27/17 09:22 Cardizem Cd - PO 360 mg DAILY JN Administration Heparin Sodium (Porcine) 5,000 unit 09/25/17 10:00 09/27/17 10:50 Heparin - SQ 5,000 unit BID JN Administration Hydralazine HCl 5 mg 09/25/17 01:45 09/25/17 14:39 Apresoline Injection - IVPUSH 5 mg Q6H PRN Administration HYPERTENSION Hydralazine HCl 100 mg 09/26/17 14:15 09/27/17 14:00 Apresoline - PO 100 mg TID JN Administration Lactated Ringer's 1,000 ml in 1,000 mls @ 75 mls/hr 09/25/17 17:15 09/27/17 02:40 Lactated Ringers Solution IV 75 mls/hr ASDIR JN Administration Metronidazole 500 mg in 100 mls @ 100 mls/hr 09/25/17 17:45 09/27/17 15:34 Flagyl 500mg Premixed Ivpb - IVPB 100 mls/hr Q6H-IV JN Administration Ceftriaxone Sodium 1 gm/ 50 mls @ 100 mls/hr 09/25/17 18:00 09/27/17 09:22 Dextrose IVPB 100 mls/hr DAILY JN Administration Levothyroxine Sodium 37.5 mcg 09/25/17 10:00 09/27/17 10:52 Synthroid Injection - IVPUSH 37.5 mcg DAILY JN Administration Methylnaltrexone [place] 12 mg 09/27/17 11:30 09/27/17 15:33 Relistor - SQ 12 mg DAILY JN Administration Metoprolol Succinate 100 mg 09/26/17 14:15 09/27/17 09:23 Toprol Xl - PO 100 mg DAILY JN Administration Morphine Sulfate 1 mg 09/25/17 09:55 09/27/17 17:15 Morphine Sulfate IVPUSH 1 mg Q4H PRN Administration PAIN LEVEL 6-10 Pantoprazole Sodium 40 mg 09/25/17 18:00 09/27/17 09:22 Protonix Iv IVPUSH 40 mg DAILY JN Administration Polyethylene Glycol 17 gm 09/26/17 14:00 09/27/17 15:32 Miralax (For Daily Use) - PO Not Given TID JN Potassium Phos/Sodium Phos 1 packet 09/26/17 14:00 09/27/17 14:00 Phos-Nak Packet - PO 1 packet TID JN Administration ASSESSMENT/PLAN: 87 y/o F w/PMH of HTN, hypothyroidism, diverticulosis, melanoma, basal cell ca, hiatal hernia presented to the ER w/N/V and abd pain. Found to have partial SBO. G.I- Partial SBO-Resolved -Clear Liquid Diet -Pain Control-->Morphine Sulfate 1 mg ivpush Q4H PRN -Ceftriaxone Sodium 1 gm 50 mls @ 100 mls/hr IVPB -Flagyl 500 mg in 100 mls @ 100 mls/hr -ABX 09/26/17-->Decreasing small Bowel Air Distension. Porcelain Gallbladder. -GI evaluation for endoscopy -Lactated Ringer's 1,000 ml in 1,000 mls @ 75 mls/hr -Per Dr Cardenas--> surgical intervention not likely needed however would benefit from manual disimpaction and an effective bowel regimen. -Relistor For opioid induced constipation. Hypothyroidism Levothyroxine 37.5 mcg IVPUSH HTN Apresoline 100 mg PO TID Apresoline Injection 5 mg IVPUSH Q6H Diltiazem HCl 360 mg PO Daily Cardizem Injection 10 MG IVPUSH Q4H PRN FEN LR's Monitor Electrolytes-Hypokalemia this am 2.9 Clear Liquid DVT Heparin SQ BID Dispo: Pt to be transferred to [facility]-surg Visit type - Emergency Visit Emergency Visit: Yes ED Registration Date: 09/24/17 Care time: The patient presented to the Emergency Department on the above date and was hospitalized for further evaluation of their emergent condition. - New Patient This patient is new to me today: Yes Date on this admission: 09/27/17 - Critical Care Critical Care patient: Yes Total Critical Care Time (in minutes): 35 Critical Care Statement: The care of this patient involved high complexity decision making to prevent further life threatening deterioration of the patient 's condition and/or to evaluate & treat vital organ system(s) failure or risk of failure.
[2017-09-28] MEDS: POLYETHYLENE GLYCOL 3350 119 GM BTL PO SCH ×3 (01:33→15:02)
[2017-09-28] MEDS: MORPHINE SULFATE 2 MG/ML VIAL IVPUSH PRN ×4 (01:46→21:01)
[2017-09-28] MEDS: hydrALAZINE HCL 50 MG TABLET (FP) PO SCH ×3 (06:07→21:02)
[2017-09-28] MEDS: NAPH,MB-DB/K PH,MBDB POWDER PACKET PO SCH ×3 (06:08→21:02)
[2017-09-28 06:33] LABS: HEMATOCRIT 38.1 % (32.4-45.2); HEMOGLOBIN 12.9 GM/dL (10.7-15.3); MCH 29.9 pg (25.7-33.7); MCHC 33.8 g/dl (32.0-36.0); MEAN CELL VOLUME 88.4 fl (80-96); PLATELET COUNT 349 K/MM3 (134-434); RBC 4.31 M/mm3 (3.60-5.2); RDW 13.7 % (11.6-15.6); WHITE BLOOD COUNT 12.6 K/mm3 (4.0-10.0)
[2017-09-28 06:48] LABS: ALBUMIN 3.4 g/dl (3.4-5.0); ANION GAP 10 (8-16); BLOOD UREA NITROGEN 11 mg/dL (7-18); CALCIUM 8.7 mg/dL (8.5-10.1); CHLORIDE 104 mmol/L (98-107); CO2 27 mmol/L (21-32); CREATININE 0.6 mg/dL (0.55-1.02); GLUCOSE,RANDOM 136 mg/dL (74-106); MAGNESIUM 1.8 mg/dL (1.8-2.4); PHOSPHOROUS 2.4 mg/dL (2.5-4.9); POTASSIUM 3.5 mmol/L (3.5-5.1); SGOT/AST 38 U/L (15-37); SGPT/ALT 25 U/L (12-78); SODIUM 141 mmol/L (136-145)
[2017-09-28 06:50] LABS: ALK PHOS 54 U/L (45-117); BILIRUBIN,TOTAL 0.6 mg/dL (0.2-1.0); TOT PROT 7.2 g/dl (6.4-8.2)
[2017-09-28] MEDS ORDERED: ASPIRIN 81 MG CHEWABLE TABLETS PO ONE (07:57)
[2017-09-28] MEDS ORDERED: morphine CARPU-JECT 2 MG/1 ML DISP.SYRIN IVPUSH ONE (07:57)
[2017-09-28] MEDS ORDERED: CLOPIDOGREL BISULFATE 300 MG TABLET PO ONE (08:11)
[2017-09-28] MEDS ORDERED: HEPARIN NA (PORCINE) 5,000 UNITS/ML 1ML VIAL IVPUSH PRN ×4 (08:11→10:33)
[2017-09-28] MEDS ORDERED: ATORVASTATIN CA 40 MG TABLET (FP) PO ONE (08:13)
[2017-09-28] MEDS ORDERED: HEPARIN - 25,000 UNIT in SODIUM CHLORIDE 495 ML IV SCH (08:15)
[2017-09-28] MEDS ORDERED: POTASSIUM CHLORIDE TABS 20 MEQ TABLET.ER (FP) PO ONE (08:18)
[2017-09-28] MEDS ORDERED: ASPIRIN 81 MG CHEWABLE TABLETS ONE (08:21)
--- NOTE | 2017-09-28 08:37 | PN ---
Teaching Attending Note Name of Resident: Jyothi Shafer ATTENDING PHYSICIAN STATEMENT I saw and evaluated the patient. I reviewed the resident's note and discussed the case with the resident. I agree with the resident's findings and plan as documented. SUBJECTIVE: Events noted, patient developed chest pain in ICu , ekg was done ischemic changes. OBJECTIVE: Vital Signs Temperature 98.1 F 09/28/17 06:00 Pulse Rate 69 09/28/17 08:00 Respiratory Rate 24 09/28/17 08:00 Blood Pressure 137/85 09/28/17 08:00 O2 Sat by Pulse Oximetry (%) 100 09/27/17 19:42 CBCD WBC 12.6 K/mm3 (4.0-10.0) H 09/28/17 05:30 RBC 4.31 M/mm3 (3.60-5.2) 09/28/17 05:30 Hgb 12.9 GM/dL (10.7-15.3) 09/28/17 05:30 Hct 38.1 % (32.4-45.2) 09/28/17 05:30 MCV 88.4 fl (80-96) 09/28/17 05:30 MCHC 33.8 g/dl (32.0-36.0) 09/28/17 05:30 RDW 13.7 % (11.6-15.6) 09/28/17 05:30 Plt Count 349 K/MM3 (134-434) 09/28/17 05:30 MPV 8.0 fl (7.5-11.1) 09/28/17 05:30 CMP Sodium 141 mmol/L (136-145) 09/28/17 05:30 Potassium 3.5 mmol/L (3.5-5.1) 09/28/17 05:30 Chloride 104 mmol/L (98-107) 09/28/17 05:30 Carbon Dioxide 27 mmol/L (21-32) 09/28/17 05:30 Anion Gap 10 (8-16) 09/28/17 05:30 BUN 11 mg/dL (7-18) 09/28/17 05:30 Creatinine 0.6 mg/dL (0.55-1.02) 09/28/17 05:30 Creat Clearance w eGFR > 60 (>60) 09/28/17 05:30 Random Glucose 136 mg/dL (74-106) H 09/28/17 05:30 Calcium 8.7 mg/dL (8.5-10.1) 09/28/17 05:30 Total Bilirubin 0.6 mg/dL (0.2-1.0) 09/28/17 05:30 AST 38 U/L (15-37) H 09/28/17 05:30 ALT 25 U/L (12-78) 09/28/17 05:30 Alkaline Phosphatase 54 U/L (45-117) 09/28/17 05:30 Total Protein 7.2 g/dl (6.4-8.2) 09/28/17 05:30 Albumin 3.4 g/dl (3.4-5.0) 09/28/17 05:30 CARDIAC ENZYMES Troponin I 2.53 ng/ml (0.00-0.05) H* 09/28/17 05:30 Current Medications Generic Name Dose Route Start Last Admin Trade Name Freq PRN Reason Stop Dose Admin Atorvastatin Calcium 40 mg 09/28/17 08:13 Lipitor - PO 09/28/17 08:14 ONCE ONE Bisacodyl 10 mg 09/25/17 10:22 09/25/17 10:57 Dulcolax Suppository - RC 10 mg DAILY PRN Administration CONSTIPATION Clopidogrel Bisulfate 300 mg 09/28/17 08:11 Plavix - PO 09/28/17 08:12 ONCE ONE Diltiazem HCl 10 mg 09/25/17 17:58 09/25/17 18:17 Cardizem Injection - IVPUSH 10 mg Q4H PRN Administration TACHYCARDIA Diltiazem HCl 360 mg 09/26/17 14:15 09/27/17 09:22 Cardizem Cd - PO 360 mg DAILY JN Administration Heparin Sodium (Porcine) 1,000 unit 09/28/17 08:11 Heparin - IVPUSH PRN PRN Heparin Heparin Sodium (Porcine) 5,000 unit 09/28/17 08:11 Heparin - IVPUSH PRN PRN Heparin Hydralazine HCl 5 mg 09/25/17 01:45 09/25/17 14:39 Apresoline Injection - IVPUSH 5 mg Q6H PRN Administration HYPERTENSION Hydralazine HCl 100 mg 09/26/17 14:15 09/28/17 06:07 Apresoline - PO 100 mg TID JN Administration Lactated Ringer's 1,000 ml in 1,000 mls @ 75 mls/hr 09/25/17 17:15 09/27/17 21:50 Lactated Ringers Solution IV 75 mls/hr ASDIR JN Administration Metronidazole 500 mg in 100 mls @ 100 mls/hr 09/25/17 17:45 09/28/17 08:30 Flagyl 500mg Premixed Ivpb - IVPB 100 mls/hr Q6H-IV JN Administration Ceftriaxone Sodium 1 gm/ 50 mls @ 100 mls/hr 09/25/17 18:00 09/27/17 09:22 Dextrose IVPB 100 mls/hr DAILY JN Administration Heparin Sodium (Porcine) 25, 500 mls @ 20 mls/hr 09/28/17 08:15 000 unit/ Sodium Chloride IV TITR JN Protocol 1,000 UNIT/HR Levothyroxine Sodium 37.5 mcg 09/25/17 10:00 09/27/17 10:52 Synthroid Injection - IVPUSH 37.5 mcg DAILY JN Administration Methylnaltrexone [place] 12 mg 09/27/17 11:30 09/27/17 15:33 Relistor - SQ 12 mg DAILY JN Administration Metoprolol Succinate 100 mg 09/26/17 14:15 09/27/17 09:23 Toprol Xl - PO 100 mg DAILY JN Administration Morphine Sulfate 1 mg 09/25/17 09:55 09/28/17 01:46 Morphine Sulfate IVPUSH 1 mg Q4H PRN Administration PAIN LEVEL 6-10 Pantoprazole Sodium 40 mg 09/25/17 18:00 09/27/17 09:22 Protonix Iv IVPUSH 40 mg DAILY JN Administration Polyethylene Glycol 17 gm 09/26/17 14:00 09/28/17 06:08 Miralax (For Daily Use) - PO Not Given TID JN Potassium Chloride 20 meq 09/28/17 08:18 K-Dur - PO 09/28/17 08:19 ONCE ONE Potassium Phos/Sodium Phos 1 packet 09/26/17 14:00 09/28/17 06:08 Phos-Nak Packet - PO 1 packet TID JN Administration Home Medications Medication Instructions Recorded Levothyroxine Sodium [Levoxyl] 75 mcg PO DAILY 09/24/17 Amitriptyline HCl 25 mg PO TID PRN 09/26/17 Diltiazem HCl [Tiazac] 360 mg PO DAILY 09/26/17 Gabapentin [Neurontin -] 100 mg PO TID PRN 09/26/17 Hydralazine HCl 100 mg PO TID 09/26/17 Metoprolol Succinate [Toprol Xl] 100 mg PO DAILY 09/26/17 Oxycodone HCl/Acetaminophen 1 each PO TID PRN 09/26/17 [Percocet 10-325 mg Tablet] Tizanidine HCl [Zanaflex] 4 mg PO BID PRN 09/26/17 Laboratory Tests 09/24/17 09/24/17 09/28/17 18:16 21:50 05:30 Troponin I < 0.02 2.53 H* Ur Specific [place] > 1.060 H Urine Protein 2+ H Urine Blood 1+ H CTAP: recurrent SBO w/ transition zone in central/R paramedian aspect of lower abdomen. Maximum dilated SB luminal diameter about 7.4 cm; focal calcification in region of GB fundus which may represent calculus vs. wall calcification. Probably diffuse hepatic steatosis. No evidence of acute diverticulitis. Cholelithiasis vs. prominent GB wall calcification. CXR: Since the prior study of 05/11/2016, there is a larger heart with large hiatal hernia, sclerotic knob , weak or inspiration and central congestive changes with some minimal atelectatic changes at the bases. The soft tissues are intact. There are degenerative changes. Laboratory Tests 09/24/17 09/24/17 09/28/17 18:16 21:50 05:30 Troponin I < 0.02 2.53 H* Ur Specific [place] > 1.060 H Urine Protein 2+ H Urine Blood 1+ H ASSESSMENT/PLAN: Patient is an 87yo female with pmhx of HTN, hypothyroidism, diverticulosis, melanoma, basal cell carcinoma, and hiatal hernia presented with abdominal pain with nausea and vomiting x 1 day and was found to have SBO on CTAP # Acute chest pain with elevated troponins 2.53 , will repeat troponin , given a dose of Plavix ,aspirin , morphine for pain in ICU cardiology consult appreciated. discussed with it systems manager . # Small bowel obstruction with continuous abdominal pain - on clear liquid diet , GI consult appreciated. On morphine for pain # Electrolyte abnormality ( hypophosphotemia/hypokalemia/ hypomag) repleted, repeat the levels in am # MEL - improved post IVF . # Acute Constipation: on dulcolax , Miralx, GI on the case. # Hx of chronic pain on Morphine DVT prophylaxis - Heparin 5000u sq tid. Advance directives - Full code .
[2017-09-28] MEDS ORDERED: cefTRIAXone SODIUM 1 GM VIAL ONE (08:50)
[2017-09-28] MEDS ORDERED: DEXTROSE 5%-WATER - 50 ML IVPB ONE (08:50)
--- NOTE | 2017-09-28 09:06 | PN ---
Physical Exam: SUBJECTIVE: Patient seen and examined at bedside. Pt complains of dull, aching chest pain. Pt also complains of persistent diffuse abdominal pain. Per nurse, pts had multiple episodes of diarrhea overnight, non bloody. Afebrile. OBJECTIVE: Vital Signs Temperature 98.1 F 09/28/17 06:00 Pulse Rate 69 09/28/17 08:00 Respiratory Rate 24 09/28/17 08:00 Blood Pressure 137/85 09/28/17 08:00 O2 Sat by Pulse Oximetry (%) 100 09/27/17 19:42 GENERAL: The patient is awake, alert, and fully oriented, in no acute distress. HEAD: Normal with no signs of trauma. NECK: Trachea midline, full range of motion, supple. LUNGS: Breath sounds equal, clear to auscultation bilaterally, no wheezes, no crackles, no accessory muscle use. HEART: Regular rate and rhythm, S1, S2 without murmur, rub or gallop. ABDOMEN: Soft, mild tenderness to palpation, nondistended, normoactive bowel sounds, no guarding, no rebound. EXTREMITIES: 2+ pulses, warm, well-perfused, no edema. NEUROLOGICAL: Cranial nerves II through X grossly intact. Normal speech, gait not observed. SKIN: Warm, dry, normal turgor, no rashes or lesions noted CBC, BMP 09/28/17 05:30 09/28/17 05:30 Troponin, BNP 09/28/17 09/28/17 05:30 12:17 Troponin I 2.53 H* 1.74 H* Active Medications Bisacodyl (Dulcolax Suppository -) 10 mg RC DAILY PRN PRN Reason: CONSTIPATION Last Admin: 09/25/17 10:57 Dose: 10 mg Diltiazem HCl (Cardizem Injection -) 10 mg IVPUSH Q4H PRN PRN Reason: TACHYCARDIA Last Admin: 09/25/17 18:17 Dose: 10 mg Diltiazem HCl (Cardizem Cd -) 360 mg PO DAILY JN Last Admin: 09/27/17 09:22 Dose: 360 mg Heparin Sodium (Porcine) (Heparin -) 1,000 unit IVPUSH PRN PRN PRN Reason: Heparin Heparin Sodium (Porcine) (Heparin -) 5,000 unit IVPUSH PRN PRN PRN Reason: Heparin Hydralazine HCl (Apresoline Injection -) 5 mg IVPUSH Q6H PRN PRN Reason: HYPERTENSION Last Admin: 09/25/17 14:39 Dose: 5 mg Hydralazine HCl (Apresoline -) 100 mg PO TID [facility] Last Admin: 09/28/17 06:07 Dose: 100 mg Lactated Ringer's (Lactated Ringers Solution) 1,000 ml in 1,000 mls @ 75 mls/ hr IV ASDIR [facility] Last Admin: 09/27/17 21:50 Dose: 75 mls/hr Metronidazole (Flagyl 500mg Premixed Ivpb -) 500 mg in 100 mls @ 100 mls/hr IVPB Q6H-IV [facility] Last Admin: 09/28/17 08:30 Dose: 100 mls/hr Ceftriaxone Sodium 1 gm/ (Dextrose) 50 mls @ 100 mls/hr IVPB DAILY [facility] Last Admin: 09/27/17 09:22 Dose: 100 mls/hr Levothyroxine Sodium (Synthroid Injection -) 37.5 mcg IVPUSH DAILY [facility] Last Admin: 09/27/17 10:52 Dose: 37.5 mcg Methylnaltrexone [place] (Relistor -) 12 mg SQ DAILY [facility] Last Admin: 09/27/17 15:33 Dose: 12 mg Metoclopramide HCl (Reglan Injection -) 10 mg IVPUSH ONCE ONE Stop: 09/28/17 09:08 Metoprolol Succinate (Toprol Xl -) 100 mg PO DAILY [facility] Last Admin: 09/27/17 09:23 Dose: 100 mg Morphine Sulfate (Morphine Sulfate) 1 mg IVPUSH Q4H PRN PRN Reason: PAIN LEVEL 6-10 Last Admin: 09/28/17 01:46 Dose: 1 mg Pantoprazole Sodium (Protonix Iv) 40 mg IVPUSH DAILY [facility] Last Admin: 09/27/17 09:22 Dose: 40 mg Polyethylene Glycol (Miralax (For Daily Use) -) 17 gm PO TID [facility] Last Admin: 09/28/17 06:08 Dose: Not Given Potassium Phos/Sodium Phos (Phos-Nak Packet -) 1 packet PO TID [facility] Last Admin: 09/28/17 06:08 Dose: 1 packet IMAGING: CTAP: recurrent SBO w/ transition zone in central/R paramedian aspect of lower abdomen. Maximum dilated SB luminal diameter about 7.4 cm; focal calcification in region of GB fundus which may represent calculus vs. wall calcification. Probably diffuse hepatic steatosis. No evidence of acute diverticulitis. Cholelithiasis vs. prominent GB wall calcification. CXR: Since the prior study of 05/11/2016, there is a larger heart with large hiatal hernia, sclerotic knob , weak or inspiration and central congestive changes with some minimal atelectatic changes at the bases. The soft tissues are intact. There are degenerative changes. ECHO: LV normal in size. Apical akinesis. EF = 40%. Mild mitral annular calcification. Mild MR. mild TR. RV systolic pressure is elevated at 50-60 mmHg. trace AR. ASSESSMENT/PLAN: The patient is an 87 yo F w/ pmhx of HTN, hypothyroidism, diverticulosis, melanoma, basal cell carcinoma, and hiatal hernia presented with 1 day h/o nausea and vomiting associated with abdominal pain. 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 T Wave inversions. -given Aspirin 162 mg PO once -given Plavix 300 mg PO once -Metoprolol succinate 100 mg PO QD -Ranexa 500 mg PO BID -repeat trops 2.53 --> 1.74 now. Cont heparin drip for 24h for now, per cardio recs -f/u cardio recs #SBO; Multiple episodes of diarrhea reported last night. -NGT removed x2 -Morphine Sulfate 1 mg Q4H PRN for pain -Surgical and GI evaluation: s/p disimpaction, medical management currently; Surgical intervention not likely needed. -cont to monitor BM, serial abd exams -Methylnaltrexone [place] (Relistor) 12 mg SQ QD for opioid-induced constipation -Miralax 17 gm PO TID -stool cx: (-) for vibrio and E. coli; salmonella/shigella, campylobacter, yersinia still pending #Leukocytosis w/ elevated lactate; WBC 12.6 today, increased from 11.0. -Pt is afebrile, WBC increased, but pt clinically asymptomatic. -Lactate has normalized. -Metronidazole 500mg @ 100cc/hr Q6H (Day 4) -Ceftriaxone 1g @100cc/hr QD (Day 4) #Hypokalemia; K+ 3.5 today. -KCl 20 meq given once today -KPhos 250 cc @ 62.5cc/hr -recheck BMP in AM #MEL; Resolved. -gentle hydration with LR @75cc/hr -avoid nephrotoxic meds #HTN -Hydralazine 100 mg PO TID -Hydralazine 5 mg IV Q6H, if systolic BP >160 -Diltiazem HCl 360 mg PO QD -Diltiazem Injection 10 mg IVP Q4H PRN -cont to monitor BP #Hypothyroidism -Levothyroxine 37.5 mcg IVP QD #DVT Ppx -Heparin drip [id number] @ 1000cc/hr #GI Ppx -Protonix 40 mg IVP QD #FEN -LR @ 75cc/hr -lytes repleted by ICU team. recheck lytes in AM -full liquid diet dispo -full code Visit type - Emergency Visit Emergency Visit: Yes ED Registration Date: 09/24/17 Care time: The patient presented to the Emergency Department on the above date and was hospitalized for further evaluation of their emergent condition. - New Patient This patient is new to me today: No - Critical Care Critical Care patient: Yes Total Critical Care Time (in minutes): 35 Critical Care Statement: The care of this patient involved high complexity decision making to prevent further life threatening deterioration of the patient 's condition and/or to evaluate & treat vital organ system(s) failure or risk of failure.
--- NOTE | 2017-09-28 09:35 | PN ---
Progress Note, Physician Chief Complaint: SBO History of Present Illness: 87yo female PMH HTN, hypothroidism, and diverticulosis who presents with 1 day of nausea and vomiting per her son. This was associated diffuse achy/cramping abdominal pain that is worse in the upper abdomen. Now having bowel movements. stable overnight. - Current Medication List Current Medications: Active Medications Bisacodyl (Dulcolax Suppository -) 10 mg RC DAILY PRN PRN Reason: CONSTIPATION Last Admin: 09/25/17 10:57 Dose: 10 mg Diltiazem HCl (Cardizem Injection -) 10 mg IVPUSH Q4H PRN PRN Reason: TACHYCARDIA Last Admin: 09/25/17 18:17 Dose: 10 mg Diltiazem HCl (Cardizem Cd -) 360 mg PO DAILY JN Last Admin: 09/27/17 09:22 Dose: 360 mg Heparin Sodium (Porcine) (Heparin -) 1,000 unit IVPUSH PRN PRN PRN Reason: Heparin Heparin Sodium (Porcine) (Heparin -) 5,000 unit IVPUSH PRN PRN PRN Reason: Heparin Hydralazine HCl (Apresoline Injection -) 5 mg IVPUSH Q6H PRN PRN Reason: HYPERTENSION Last Admin: 09/25/17 14:39 Dose: 5 mg Hydralazine HCl (Apresoline -) 100 mg PO TID JN Last Admin: 09/28/17 06:07 Dose: 100 mg Lactated Ringer's (Lactated Ringers Solution) 1,000 ml in 1,000 mls @ 75 mls/ hr IV ASDIR JN Last Admin: 09/27/17 21:50 Dose: 75 mls/hr Metronidazole (Flagyl 500mg Premixed Ivpb -) 500 mg in 100 mls @ 100 mls/hr IVPB Q6H-IV JN Last Admin: 09/28/17 08:30 Dose: 100 mls/hr Ceftriaxone Sodium 1 gm/ (Dextrose) 50 mls @ 100 mls/hr IVPB DAILY JN Last Admin: 09/27/17 09:22 Dose: 100 mls/hr Levothyroxine Sodium (Synthroid Injection -) 37.5 mcg IVPUSH DAILY JN Last Admin: 09/27/17 10:52 Dose: 37.5 mcg Methylnaltrexone [place] (Relistor -) 12 mg SQ DAILY JN Last Admin: 09/27/17 15:33 Dose: 12 mg Metoclopramide HCl (Reglan Injection -) 10 mg IVPUSH ONCE ONE Stop: 09/28/17 09:08 Metoprolol Succinate (Toprol Xl -) 100 mg PO DAILY [facility] Last Admin: 09/27/17 09:23 Dose: 100 mg Morphine Sulfate (Morphine Sulfate) 1 mg IVPUSH Q4H PRN PRN Reason: PAIN LEVEL 6-10 Last Admin: 09/28/17 01:46 Dose: 1 mg Pantoprazole Sodium (Protonix Iv) 40 mg IVPUSH DAILY [facility] Last Admin: 09/27/17 09:22 Dose: 40 mg Polyethylene Glycol (Miralax (For Daily Use) -) 17 gm PO TID [facility] Last Admin: 09/28/17 06:08 Dose: Not Given Potassium Phos/Sodium Phos (Phos-Nak Packet -) 1 packet PO TID [facility] Last Admin: 09/28/17 06:08 Dose: 1 packet - Objective Vital Signs: Vital Signs Temperature 98.1 F 09/28/17 06:00 Pulse Rate 69 09/28/17 08:00 Respiratory Rate 19 09/28/17 09:00 Blood Pressure 137/85 09/28/17 08:00 O2 Sat by Pulse Oximetry (%) 100 09/28/17 09:00 Vital Signs Period Temp Pulse Resp BP Sys/Glass Pulse Ox Last 24 Hr 98 F-98.6 F 69-77 16-24 128-151/60-96 100-100 Intake & Output 09/27/17 09/28/17 09/28/17 23:59 07:59 15:59 Intake Total 775 1200 Output Total 200 Balance 575 1200 Intake: IV 525 900 LACTATED RINGERS SOLUTION 525 900 1,000 ml In 1,000 ml @ 75 mls/hr IV ASDIR [facility] Rx #:[id number] IVPB 100 200 Oral 150 100 Output: Urine 200 Void 200 Other: Voiding Method Bedside Commode Bedside Commode # Unmeasured Voids Void 2 2 Bowel Movement Yes Yes # Bowel Movements 1 2 Constitutional: Yes: Well Nourished, No Distress, Calm Eyes: Yes: Conjunctiva Clear, EOM Intact HENT: Yes: Atraumatic, Normocephalic Neck: Yes: Supple, Trachea Midline Cardiovascular: Yes: Regular Rate and Rhythm, S1, S2 Respiratory: Yes: Regular, CTA Bilaterally Gastrointestinal: Yes: Normal Bowel Sounds, Soft. No: Tenderness, Tenderness, Epigastrium ...Rectal Exam: Yes: Deferred Genitourinary: No: CVA Tenderness - Left, CVA Tenderness - Right Extremities: No: Cool, Cyanosis Neurological: Yes: Alert, Oriented Psychiatric: Yes: Alert, Oriented Labs: CBC, BMP 09/28/17 05:30 09/28/17 05:30 Problem List - Problems (1) Small bowel obstruction Assessment/Plan: 87 yo female MMP with chronic constipation and fecal impaction of recto sigmoid. She will not likely require surgical intervention but would benefit from a manual disimpaction and an effective bowel regimen. AXR shows resolved SBO. Porcelain gall bladder is noted, this does carry and increased risk of malignancy but given advanced age may be watched clinically and worked up by PMD. Clear Liquids advance as tolerated IVF hydration HOB to 30deg GI evaluation for endoscopy Adequate analgesia (preferably non-narcotic) enemas trend labs and correct electrolytes Serial abdominal exams Recall as needed This patient is in guarded but stable condition. Time spent reviewing chart, examining patient, talking with providers and/or family and documentation is 35 minutes. Thank you for the opportunity to participate in the care of this patient. 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
[2017-09-28] MEDS: CEFTRIAXONE 1 GM in DEXTROSE 5%-WATER - 50 ML IVPB SCH (10:03)
[2017-09-28] MEDS: LEVOTHYROXINE SODIUM 100 MCG VIAL IVPUSH SCH (10:04)
[2017-09-28] MEDS: PANTOPRAZOLE SODIUM 40 MG VIAL IVPUSH SCH (10:19)
[2017-09-28] MEDS ORDERED: HEPARIN INFUSION - 25,000 UNITS/500 ML INFUS.BAG IVPB SCH (10:45)
--- NOTE | 2017-09-28 11:23 | PN ---
Teaching Attending Note Name of Resident: Ronnie Kent ATTENDING PHYSICIAN STATEMENT I saw and evaluated the patient. I reviewed the resident's note and discussed the case with the resident. I agree with the resident's findings and plan as documented. SUBJECTIVE: Pt seen and examined in the ICU. Episode of chest pain this AM with EKG changes in lateral leads. Chest pain since resolved. Still with lower abdominal soreness. Had bowel movement earlier today. OBJECTIVE: Vital Signs Period Temp Pulse Resp BP Sys/Glass Pulse Ox Last 24 Hr 98 F-98.6 F 64-77 16-24 128-151/60-86 100-100 Intake & Output 09/25/17 09/26/17 09/27/17 09/28/17 23:59 23:59 23:59 23:59 Intake Total 1050 2460 2782 1400 Output Total 3100 2300 770 Balance -2050 160 2011 1400 Weight 75.296 kg 71.214 kg Gen: NAD at rest Heart: RRR Lung: decreased breath sounds at the bases Abd: soft, mild TTP lower quadrants Ext: no edema CBC, BMP 09/28/17 05:30 09/28/17 05:30 Active Medications Bisacodyl (Dulcolax Suppository -) 10 mg RC DAILY PRN PRN Reason: CONSTIPATION Last Admin: 09/25/17 10:57 Dose: 10 mg Diltiazem HCl (Cardizem Injection -) 10 mg IVPUSH Q4H PRN PRN Reason: TACHYCARDIA Last Admin: 09/25/17 18:17 Dose: 10 mg Diltiazem HCl (Cardizem Cd -) 360 mg PO DAILY JN Last Admin: 09/28/17 10:04 Dose: 360 mg Heparin Sodium (Porcine) (Heparin -) 1,000 unit IVPUSH PRN PRN PRN Reason: Heparin Heparin Sodium (Porcine) (Heparin -) 5,000 unit IVPUSH PRN PRN PRN Reason: Heparin Heparin Sodium (Porcine) (Heparin -) 1,000 unit IVPUSH PRN PRN PRN Reason: Heparin Heparin Sodium (Porcine) (Heparin -) 5,000 unit IVPUSH PRN PRN PRN Reason: Heparin Hydralazine HCl (Apresoline Injection -) 5 mg IVPUSH Q6H PRN PRN Reason: HYPERTENSION Last Admin: 09/25/17 14:39 Dose: 5 mg Hydralazine HCl (Apresoline -) 100 mg PO TID [facility] Last Admin: 09/28/17 06:07 Dose: 100 mg Lactated Ringer's (Lactated Ringers Solution) 1,000 ml in 1,000 mls @ 75 mls/ hr IV ASDIR JN Last Admin: 09/27/17 21:50 Dose: 75 mls/hr Metronidazole (Flagyl 500mg Premixed Ivpb -) 500 mg in 100 mls @ 100 mls/hr IVPB Q6H-IV JN Last Admin: 09/28/17 08:30 Dose: 100 mls/hr Ceftriaxone Sodium 1 gm/ (Dextrose) 50 mls @ 100 mls/hr IVPB DAILY [facility] Last Admin: 09/28/17 10:03 Dose: 100 mls/hr Heparin Sodium/Dextrose (Heparin Infusion -) 25,000 units in 500 mls @ 20 mls/ hr IVPB TITR JN; Protocol Levothyroxine Sodium (Synthroid Injection -) 37.5 mcg IVPUSH DAILY [facility] Last Admin: 09/28/17 10:04 Dose: 37.5 mcg Methylnaltrexone [place] (Relistor -) 12 mg SQ DAILY [facility] Last Admin: 09/27/17 15:33 Dose: 12 mg Metoclopramide HCl (Reglan Injection -) 10 mg IVPUSH ONCE ONE Stop: 09/28/17 09:08 Metoprolol Succinate (Toprol Xl -) 100 mg PO DAILY [facility] Last Admin: 09/28/17 10:04 Dose: 100 mg Pantoprazole Sodium (Protonix Iv) 40 mg IVPUSH DAILY [facility] Last Admin: 09/28/17 10:19 Dose: 40 mg Polyethylene Glycol (Miralax (For Daily Use) -) 17 gm PO TID [facility] Last Admin: 09/28/17 06:08 Dose: Not Given Potassium Phos/Sodium Phos (Phos-Nak Packet -) 1 packet PO TID [facility] Last Admin: 09/28/17 06:08 Dose: 1 packet ASSESSMENT AND PLAN: Partial Small Bowel Obstruction resolving Acute NSTEMI Opiate Dependence Fecal Impaction Diverticulosis Lactic Acidosis HTN Hypothyroidism - ASA, beta felix - would start short term anticoagulation - trend cardiac enzymes - echocardiogram - cardiology eval - pain control - bowel regimen - PO per GI - continue relistor - IVF - replete lytes - continue empiric antibiotics - DVT prophylaxis - continue ICU monitoring
[2017-09-28] MEDS ORDERED: PT OWN MED DRAWER 7, Y5N ONE (11:37)
[2017-09-28] MEDS ORDERED: METOCLOPRAMIDE HCL INJECTION 10 MG/2 ML VIAL IVPUSH ONE (12:00)
[2017-09-28] MEDS: Methylnaltrexone Bromide 12 MG/0.6 ML KIT SQ SCH (12:35)
--- NOTE | 2017-09-28 13:11 | EKG ---
Test Reason : Blood Pressure : / mmHG Vent. Rate : 069 BPM Atrial Rate : 069 BPM P-R Int : 150 ms QRS Dur : 080 ms QT Int : 448 ms P-R-T Axes : 052 -03 -40 degrees QTc Int : 480 ms NORMAL SINUS RHYTHM LOW VOLTAGE QRS PROLONGED QT ABNORMAL ECG Confirmed by Ander Bailey MD ([id number]) on 09/28/2017 1:10:58 PM Referred By: Confirmed By:Andre Bailey MD
--- NOTE | 2017-09-28 13:50 | PN ---
Physical Exam: SUBJECTIVE: Patient seen and examined this am in icu. Had chest pain and sob this am, STAT EKG and Troponin levels ordered. Presently endorses abdominal pain. OBJECTIVE: Vital Signs Period Temp Pulse Resp BP Sys/Glass Pulse Ox Last 24 Hr 98 F-98.6 F 64-77 16-24 128-151/60-86 100-100 GENERAL: AAOx3. SOB earlier this am, chest pain. HEAD: NC/AT EYES: Glasses. EOMI. ENT: MMM NECK: Supple, No JVD LUNGS: Dec BS at bases HEART: RRR ABDOMEN: Tender RUQ abdomen EXTREMITIES: 2+ pulses, warm NEUROLOGICAL: No Neuro Deficits PSYCH: Normal mood, normal affect. SKIN: No rashes or lesions appreciated Laboratory Results - last 24 hr 09/28/17 09/28/17 05:30 05:30 WBC 12.6 H RBC 4.31 Hgb 12.9 Hct 38.1 MCV 88.4 MCH 29.9 MCHC 33.8 RDW 13.7 Plt Count 349 MPV 8.0 Sodium 141 Potassium 3.5 Chloride 104 Carbon Dioxide 27 Anion Gap 10 BUN 11 Creatinine 0.6 Creat Clearance w eGFR > 60 Random Glucose 136 H Calcium 8.7 Phosphorus 2.4 L Magnesium 1.8 Total Bilirubin 0.6 AST 38 H ALT 25 Alkaline Phosphatase 54 Troponin I 2.53 H* Total Protein 7.2 Albumin 3.4 Active Medications Generic Name Dose Route Start Last Admin Trade Name Freq PRN Reason Stop Dose Admin Bisacodyl 10 mg 09/25/17 10:22 09/25/17 10:57 Dulcolax Suppository - RC 10 mg DAILY PRN Administration CONSTIPATION Diltiazem HCl 10 mg 09/25/17 17:58 09/25/17 18:17 Cardizem Injection - IVPUSH 10 mg Q4H PRN Administration TACHYCARDIA Diltiazem HCl 360 mg 09/26/17 14:15 09/28/17 10:04 Cardizem Cd - PO 360 mg DAILY JN Administration Diphenhydramine HCl 25 mg 09/28/17 22:00 Benadryl - PO ONCE PRN INSOMNIA Heparin Sodium (Porcine) 1,000 unit 09/28/17 10:33 Heparin - IVPUSH PRN PRN Heparin Heparin Sodium (Porcine) 5,000 unit 09/28/17 10:33 Heparin - IVPUSH PRN PRN Heparin Hydralazine HCl 5 mg 09/25/17 01:45 09/25/17 14:39 Apresoline Injection - IVPUSH 5 mg Q6H PRN Administration HYPERTENSION Hydralazine HCl 100 mg 09/26/17 14:15 09/28/17 06:07 Apresoline - PO 100 mg TID JN Administration Lactated Ringer's 1,000 ml in 1,000 mls @ 75 mls/hr 09/25/17 17:15 09/27/17 21:50 Lactated Ringers Solution IV 75 mls/hr ASDIR JN Administration Metronidazole 500 mg in 100 mls @ 100 mls/hr 09/25/17 17:45 09/28/17 08:30 Flagyl 500mg Premixed Ivpb - IVPB 100 mls/hr Q6H-IV JN Administration Ceftriaxone Sodium 1 gm/ 50 mls @ 100 mls/hr 09/25/17 18:00 09/28/17 10:03 Dextrose IVPB 100 mls/hr DAILY JN Administration Heparin Sodium/Dextrose 25,000 units in 500 mls @ 20 mls/hr 09/28/17 10:45 12:20 Heparin Infusion - IVPB 1,000 units/hr TITR JN 20 mls/hr Administration Protocol 1,000 UNITS/HR Levothyroxine Sodium 37.5 mcg 09/25/17 10:00 09/28/17 10:04 Synthroid Injection - IVPUSH 37.5 mcg DAILY JN Administration Methylnaltrexone [place] 12 mg 09/27/17 11:30 09/28/17 12:35 Relistor - SQ Not Given DAILY JN Metoprolol Succinate 100 mg 09/26/17 14:15 09/28/17 10:04 Toprol Xl - PO 100 mg DAILY JN Administration Morphine Sulfate 1 mg 09/28/17 11:45 09/28/17 11:57 Morphine Sulfate IVPUSH 1 mg Q4H PRN Administration PAIN LEVEL 6-10 Pantoprazole Sodium 40 mg 09/25/17 18:00 09/28/17 10:19 Protonix Iv IVPUSH 40 mg DAILY JN Administration Polyethylene Glycol 17 gm 09/26/17 14:00 09/28/17 06:08 Miralax (For Daily Use) - PO Not Given TID JN Potassium Phos/Sodium Phos 1 packet 09/26/17 14:00 09/28/17 06:08 Phos-Nak Packet - PO 1 packet TID JN Administration ASSESSMENT/PLAN: 87 y/o F w/PMH of HTN, hypothyroidism, diverticulosis, melanoma, basal cell ca, hiatal hernia presented to the ER w/N/V and abd pain. Found to have partial SBO. Cardio: NON ST Elevation M.I -Troponin--->2.53. Repeat Troponin 1.74 this afternoon. -Heparin 25,000 U IVPB -Morphine 1 mg IVPUSH Q4H PRN -Echo -Plavix 300 mg PO Once - ASA 162 MG PO Once EKG 09/28/17---> EKG changes in lateral leads. T Wave inversions. G.I- Partial SBO-Resolved -Clear Liquid Diet -Pain Control-->Morphine Sulfate 1 mg ivpush Q4H PRN -Ceftriaxone Sodium 1 gm 50 mls @ 100 mls/hr IVPB -Flagyl 500 mg in 100 mls @ 100 mls/hr -ABX 09/26/17-->Decreasing small Bowel Air Distension. Porcelain Gallbladder. -GI evaluation for endoscopy -Lactated Ringer's 1,000 ml in 1,000 mls @ 75 mls/hr -Per Dr Cardenas--> surgical intervention not likely needed however would benefit from manual disimpaction and an effective bowel regimen. -Relistor For opioid induced constipation. Hypothyroidism Levothyroxine 37.5 mcg IVPUSH HTN Apresoline 100 mg PO TID Apresoline Injection 5 mg IVPUSH Q6H Diltiazem HCl 360 mg PO Daily Cardizem Injection 10 MG IVPUSH Q4H PRN FEN LR's Monitor Electrolytes Full Liquid DVT Heparin gtt Dispo: Continue to monitor in icu. Visit type - Emergency Visit Emergency Visit: Yes ED Registration Date: 09/24/17 Care time: The patient presented to the Emergency Department on the above date and was hospitalized for further evaluation of their emergent condition. - New Patient This patient is new to me today: No - Critical Care Critical Care patient: Yes Total Critical Care Time (in minutes): 35 Critical Care Statement: The care of this patient involved high complexity decision making to prevent further life threatening deterioration of the patient 's condition and/or to evaluate & treat vital organ system(s) failure or risk of failure.
--- NOTE | 2017-09-28 14:14 | PN ---
Progress Note (short form) - Note Progress Note: Chief complaint: Events noted, notes reviewed, chest discomfort earlier today currently complaining of abdominal discomfort History of Present Illness: 86-year-old female with known history of coronary artery disease abnormal pharmacologic (Dipyridamole) myocardial perfusion imaging study June 06, 2013 single vessel obstructive coronary artery disease on coronary angiography October 19, 2013 (70% lesion LAD-D1) angina pectoris, diastolic left ventricular dysfunction with class 0-I Bartholomew Heart Association classification left ventricular failure, mitral valve regurgitation mild in severity of no clinical significance on echocardiography performed May 25, 2013, tricuspid valve regurgitation mild in severity with RVSP of 39 mmHg on echocardiography performed May 25, 2013, hypertensive cardiovascular disease labile blood pressure, hypercholesterolemia currently on no statin therapy related to prior history of statin therapy administration intolerance, abnormal hemoglobin A1C, carotid stenosis mild in severity on carotid Doppler study performed May 25, 2013, hypothyroidism, degenerative joint disease with chronic pain syndrome and anxiety disorder. Left heart cardiac catheterization coronary angiography performed October 19, 2013 revealed normal left ventricular systolic function with estimated left ventricular ejection fraction of 60%, 70% LAD-D1 lesion for medical management. Carotid Doppler study performed May 25, 2013 revealed mild degree of atherosclerotic plaque bilaterally with no evidence of hemodynamically significant stenosis. Echocardiography performed May 25, 2013 revealed overall preserved left ventricular systolic function, mitral annular calcification, aortic valve leaflet sclerosis, left atrial dilatation measuring 4.3 cm, mild mitral and tricuspid valve regurgitation with calculated RVSP of 39 mmHg. Pharmacologic (Dipyridamole) myocardial perfusion imaging study performed June 06, 2013 revealed moderate size inferior wall defect compatible with mild ischemia with normal left ventricular contraction pattern on LV gated analysis with calculated left ventricular ejection fraction of 88%. Allergies: Intolerance to codeine and Demerol. Medical therapy currently includes: Current Medications Bisacodyl (Dulcolax Suppository -) 10 mg RC DAILY PRN PRN Reason: CONSTIPATION Last Admin: 09/25/17 10:57 Dose: 10 mg Diltiazem HCl (Cardizem Injection -) 10 mg IVPUSH Q4H PRN PRN Reason: TACHYCARDIA Last Admin: 09/25/17 18:17 Dose: 10 mg Diltiazem HCl (Cardizem Cd -) 360 mg PO DAILY JN Last Admin: 09/28/17 10:04 Dose: 360 mg Diphenhydramine HCl (Benadryl -) 25 mg PO ONCE PRN PRN Reason: INSOMNIA Heparin Sodium (Porcine) (Heparin -) 1,000 unit IVPUSH PRN PRN PRN Reason: Heparin Heparin Sodium (Porcine) (Heparin -) 5,000 unit IVPUSH PRN PRN PRN Reason: Heparin Hydralazine HCl (Apresoline Injection -) 5 mg IVPUSH Q6H PRN PRN Reason: HYPERTENSION Last Admin: 09/25/17 14:39 Dose: 5 mg Hydralazine HCl (Apresoline -) 100 mg PO TID JN Last Admin: 09/28/17 06:07 Dose: 100 mg Lactated Ringer's (Lactated Ringers Solution) 1,000 ml in 1,000 mls @ 75 mls/ hr IV ASDIR JN Last Admin: 09/27/17 21:50 Dose: 75 mls/hr Metronidazole (Flagyl 500mg Premixed Ivpb -) 500 mg in 100 mls @ 100 mls/hr IVPB Q6H-IV JN Last Admin: 09/28/17 08:30 Dose: 100 mls/hr Ceftriaxone Sodium 1 gm/ (Dextrose) 50 mls @ 100 mls/hr IVPB DAILY JN Last Admin: 09/28/17 10:03 Dose: 100 mls/hr Heparin Sodium/Dextrose (Heparin Infusion -) 25,000 units in 500 mls @ 20 mls/ hr IVPB TITR JN; Protocol Last Admin: 09/28/17 12:20 Dose: 1,000 units/hr, 20 mls/hr Levothyroxine Sodium (Synthroid Injection -) 37.5 mcg IVPUSH DAILY [facility] Last Admin: 09/28/17 10:04 Dose: 37.5 mcg Methylnaltrexone [place] (Relistor -) 12 mg SQ DAILY [facility] Last Admin: 09/28/17 12:35 Dose: Not Given Metoprolol Succinate (Toprol Xl -) 100 mg PO DAILY [facility] Last Admin: 09/28/17 10:04 Dose: 100 mg Morphine Sulfate (Morphine Sulfate) 1 mg IVPUSH Q4H PRN PRN Reason: PAIN LEVEL 6-10 Last Admin: 09/28/17 11:57 Dose: 1 mg Pantoprazole Sodium (Protonix Iv) 40 mg IVPUSH DAILY [facility] Last Admin: 09/28/17 10:19 Dose: 40 mg Polyethylene Glycol (Miralax (For Daily Use) -) 17 gm PO TID [facility] Last Admin: 09/28/17 06:08 Dose: Not Given Potassium Phos/Sodium Phos (Phos-Nak Packet -) 1 packet PO TID [facility] Last Admin: 09/28/17 06:08 Dose: 1 packet Review of Systems: Constitutional: Denies fever, chills or weight loss Head and Neck: Denies headache, photophobia or blurring of vision Respiratory: Denies cough or sputum production Cardiovascular: As noted above Gastrointestinal: Denies nausea, vomiting, diarrhea, constipation or abdominal discomfort Genitourinary: Denies frequency, urgency or hesitancy Musculoskeletal: Persistent left hip discomfort as noted above Endocrine: Hypothyroidism Physical Examination: Vital Signs: Last Vital Signs Temp Pulse Resp BP Pulse Ox 98.2 F 72 23 147/73 100 09/28/17 10:00 09/28/17 12:00 09/28/17 12:00 09/28/17 12:00 09/28/17 09:00 Intake & Output 09/25/17 09/26/17 09/27/17 09/28/17 23:59 23:59 23:59 23:59 Intake Total 1050 2460 2782 1400 Output Total 3100 2300 770 Balance -2049 160 2011 1400 Weight 166 lb 157 lb Neck: Supple negative JVD no bruit appreciated Heart: S1 and S2 regular no murmurs clicks or gallops Lungs: Clear to auscultation and percussion Abdomen: Soft benign normoactive bowel sounds no organomegaly Extremities: Negative edema 2+ distal pulses no calf tenderness EKG: Normal sinus rhythm at 61 bpm with poor R-wave progression no significant change compared to prior electrocardiogram performed July 20, 2016 other than decrease in the pulse rate. Lab Data: EKG dated September 24, 2017 revealed sinus rhythm with nonspecific ST segment abnormality. EKG dated September 25, 2018 reveals sinus rhythm with ST segment elevation in V1 to V3 suggestive of anteroseptal wall myocardial infarction. EKG performed earlier today revealed sinus rhythm with anterior ST segment and T -wave abnormality consistent with LAD ischemia. CBC, BMP 09/28/17 05:30 09/28/17 05:30 Hepatic Panel Total Bilirubin 0.6 mg/dL (0.2-1.0) 09/28/17 05:30 AST 38 U/L (15-37) H 09/28/17 05:30 ALT 25 U/L (12-78) 09/28/17 05:30 Alkaline Phosphatase 54 U/L (45-117) 09/28/17 05:30 Albumin 3.4 g/dl (3.4-5.0) 09/28/17 05:30 Troponin, BNP 09/28/17 09/28/17 05:30 12:17 Troponin I 2.53 H* 1.74 H* ASSESSMENT: 1. Coronary artery disease abnormal pharmacologic (Dipyridamole) myocardial perfusion imaging study single vessel obstructive coronary artery disease on coronary angiography recent probable anterior wall non-ST segment elevation myocardial infarction, post-infarction angina pectoris (Troponin I trending down ). 2. Diastolic left ventricular dysfunction with class 0-I Bartholomew Heart Association classification left ventricular failure, clinically compensated/ euvolemic. 3. Mitral valve regurgitation mild in severity of no clinical significance. 4. Tricuspid valve regurgitation mild in severity with RVSP of 39 mmHg on echocardiography performed May 25, 2013. 5. Hypertensive cardiovascular disease labile blood pressure. 6. Hypercholesterolemia currently on no statin therapy related to prior history of statin therapy administration intolerance. 7. Abnormal hemoglobin A1C. 8. Carotid stenosis mild in severity, asymptomatic. 9. Hypothyroidism. 10. Persistent abdominal discomfort, small bowel obstruction. 11. History of degenerative joint disease with chronic pain syndrome. 12. History of anxiety disorder. PLAN: 1. Continue Toprol-XL therapy. 2. Continue Cardizem CD therapy and . 3. Addition of Nitrates +/- Ranexa with caution. 4. Addition of statin therapy with caution. 5. Continuation of Aspirin/Plavix/Heparin therapy. 6. Echocardiography for evaluation left ventricular size and systolic function. 7. Considering patient's advanced age, comorbidities and current presentation would recommend conservative medical management unless symptoms persist and/or progress. Discussed in detail with the patient and her daughter who was at the bedside. Jose Goldstein M.D.
[2017-09-28] MEDS: ISOSORBIDE MONONITRATE 30 MG TAB.SR.24H (FP) PO SCH (14:52)
[2017-09-28] MEDS ORDERED: morphine CARPU-JECT 4 MG/1 ML DISP.SYRIN IVPUSH ONE (15:15)
--- NOTE | 2017-09-28 15:28 | ECHO ---
Name: DIEGO HEWITT Exam:Adult Echocardiogram Study Date: 09/28/2017 01:17 PM Age: 87 yrs Reason For Study: NONSTEMI [place] Height: 63 in Weight: 157 lb BSA: 1.7 m2 MMode/2D Measurements & Calculations IVSd: 0.86 cm LA dimension: 3.8 cm LVIDd: 4.3 cm LVIDs: 3.1 cm LVPWd: 0.86 cm EDV(Teich): 82.8 ml TAPSE: 2.3 cm ESV(Teich): 37.1 ml Doppler Measurements & Calculations AI P1/2t: 469.9 msec AI max colleen: 319.7 cm/sec AI max P.1 mmHg AI dec slope: 199.3 cm/sec2 MR max colleen: 480.6 cm/sec TR max colleen: 369.1 cm/sec MR max P.5 mmHg TR max P.8 mmHg Med Peak E' Colleen: 10.7 cm/sec Lat Peak E' Colleen: 5.0 cm/sec Procedure A complete two-dimensional transthoracic echocardiogram was performed (2D, M-mode, Doppler and color flow Doppler). Left Ventricle The left ventricle is normal in size. Ejection Fraction = 40%. The transmitral spectral Doppler flow pattern is suggestive of impaired LV relaxation. There is apical akinesis. Right Ventricle The right ventricle is normal in size and function. Atria Normal left and right atrial size and function. Mitral Valve There is mild mitral annular calcification. There is mild mitral regurgitation. Tricuspid Valve The tricuspid valve is not well visualized, but is grossly normal. There is mild tricuspid regurgitat ion. Right ventricular systolic pressure is elevated at 50-60mmHg. Aortic Valve There is mild aortic sclerosis.;. Trace aortic regurgitation. Pulmonic Valve The pulmonic valve is not well visualized. Great Vessels The aortic root is normal size. Pericardium/Pleura There is no pericardial effusion. There is no pleural effusion. Interpretation Summary The left ventricle is normal in size. There is apical akinesis. Ejection Fraction = 40%. There is mild mitral annular calcification. There is mild mitral regurgitation. There is mild tricuspid regurgitation. Right ventricular systolic pressure is elevated at 50-60mmHg. Trace aortic regurgitation. MD Andre Bailey 09/28/2017 03:27 PM
[2017-09-28] MEDS ORDERED: MORPHINE SULFATE 2 MG/ML VIAL IVPUSH ONE (18:30)
[2017-09-28] MEDS: LACTATED RINGERS SOLUTION 1,000 ML/1,000 ML INFUS.BAG IV SCH (20:13)
[2017-09-28] MEDS: RANOLAZINE E.R. 500 MG TABLET (FP) PO SCH (21:02)
[2017-09-28] MEDS ORDERED: diphenhydrAMINE HCL 25 MG CAPSULE (FP) PO PRN (22:00)
--- NOTE | 2017-09-28 22:24 | PN ---
GI Progress Note Subjective: GI NOte; Cardiac events noted. Fortunately SBO has resolved and she is moving her bowels. No abdominal pain tonight. - Objective Vital Signs: Vital Signs Temperature 98 F 09/28/17 21:22 Pulse Rate 73 09/28/17 21:22 Respiratory Rate 22 09/28/17 21:22 Blood Pressure 127/73 09/28/17 21:22 O2 Sat by Pulse Oximetry (%) 100 09/28/17 21:16 Constitutional: Calm ...Auscultate: Yes: Normoactive Bowel Sounds ...Palpate: Yes: Soft, Other (nontender) Labs: CBC, BMP 09/28/17 05:30 09/28/17 05:30 Problem List - Problems (1) Small bowel obstruction Assessment/Plan: Resolved SBO. Will try soft diet in AM. Will need to address porcelain GB at a later stage. Code(s): K56.609 - UNSP INTESTNL OBST, UNSP TO PARTIAL VERSUS COMPLETE OBST (2) History of colon polyps Code(s): Z86.010 - PERSONAL HISTORY OF COLONIC POLYPS (3) Constipation due to opioid therapy Code(s): K59.03 - DRUG INDUCED CONSTIPATION; T40.2X5A - ADVERSE EFFECT OF OTHER OPIOIDS, INITIAL ENCOUNTER (4) Hiatal hernia Code(s): K44.9 - DIAPHRAGMATIC HERNIA WITHOUT OBSTRUCTION OR GANGRENE (5) Macular degeneration Code(s): H35.30 - UNSPECIFIED MACULAR DEGENERATION
[2017-09-29] MEDS: MORPHINE SULFATE 2 MG/ML VIAL IVPUSH PRN ×6 (00:42→22:35)
[2017-09-29] MEDS: NAPH,MB-DB/K PH,MBDB POWDER PACKET PO SCH ×3 (05:38→21:09)
[2017-09-29] MEDS: hydrALAZINE HCL 50 MG TABLET (FP) PO SCH (05:38)
[2017-09-29 06:27] LABS: HEMATOCRIT 33.2 % (32.4-45.2); HEMOGLOBIN 11.2 GM/dL (10.7-15.3); MCH 29.6 pg (25.7-33.7); MCHC 33.8 g/dl (32.0-36.0); MEAN CELL VOLUME 87.7 fl (80-96); MEAN PLT VOLUME 7.9 fl (7.5-11.1); PLATELET COUNT 286 K/MM3 (134-434); RBC 3.79 M/mm3 (3.60-5.2); RDW 13.1 % (11.6-15.6); WHITE BLOOD COUNT 11.5 K/mm3 (4.0-10.0)
[2017-09-29 07:04] LABS: CHLORIDE 104 mmol/L (98-107); POTASSIUM 3.8 mmol/L (3.5-5.1); SODIUM 140 mmol/L (136-145)
[2017-09-29 07:28] LABS: SGPT/ALT 23 U/L (12-78)
[2017-09-29] MEDS ORDERED: cefTRIAXone SODIUM 1 GM VIAL ONE (07:36)
[2017-09-29] MEDS ORDERED: DEXTROSE 5%-WATER - 50 ML IVPB ONE (07:36)
[2017-09-29 08:33] LABS: ALK PHOS 45 U/L (45-117); ANION GAP 10 MMOL/L (8-16); BILIRUBIN,TOTAL 0.6 mg/dL (0.2-1.0); BLOOD UREA NITROGEN 12 mg/dL (7-18); CALCIUM 8.4 mg/dL (8.5-10.1); CO2 26 mmol/L (21-32); CREATININE 0.4 mg/dL (0.55-1.02); GLUCOSE,RANDOM 136 mg/dL (74-106); MAGNESIUM 1.7 mg/dL (1.8-2.4); PHOSPHOROUS 2.5 mg/dL (2.5-4.9); SGOT/AST 25 U/L (15-37); TOT PROT 6.2 g/dl (6.4-8.2)
[2017-09-29] MEDS: CEFTRIAXONE 1 GM in DEXTROSE 5%-WATER - 50 ML IVPB SCH (09:17)
[2017-09-29] MEDS: PANTOPRAZOLE SODIUM 40 MG VIAL IVPUSH SCH (09:17)
[2017-09-29] MEDS: RANOLAZINE E.R. 500 MG TABLET (FP) PO SCH ×2 (09:17→21:09)
[2017-09-29] MEDS: ASPIRIN COATED 81 MG TABLET.EC PO SCH (09:17)
[2017-09-29] MEDS: CLOPIDOGREL BISULFATE 75 MG TABLET (FP) PO SCH (09:17)
[2017-09-29] MEDS: LEVOTHYROXINE SODIUM 100 MCG VIAL IVPUSH SCH (09:19)
[2017-09-29] MEDS: ISOSORBIDE MONONITRATE 30 MG TAB.SR.24H (FP) PO SCH (09:24)
[2017-09-29] MEDS: POLYETHYLENE GLYCOL 3350 119 GM BTL PO SCH ×2 (09:25→21:12)
--- NOTE | 2017-09-29 09:52 | PN ---
Progress Note, Physician History of Present Illness: Reports chest pain, dyspnea, orthopnea, abd pain improved, SBO resolved and tolerating diet with BM. - Current Medication List Current Medications: Active Medications Aspirin (Ecotrin -) 81 mg PO DAILY [facility] Last Admin: 09/29/17 09:17 Dose: 81 mg Bisacodyl (Dulcolax Suppository -) 10 mg RC DAILY PRN PRN Reason: CONSTIPATION Last Admin: 09/25/17 10:57 Dose: 10 mg Clopidogrel Bisulfate (Plavix -) 75 mg PO DAILY [facility] Last Admin: 09/29/17 09:17 Dose: 75 mg Diltiazem HCl (Cardizem Injection -) 10 mg IVPUSH Q4H PRN PRN Reason: TACHYCARDIA Last Admin: 09/25/17 18:17 Dose: 10 mg Diltiazem HCl (Cardizem Cd -) 360 mg PO DAILY [facility] Last Admin: 09/29/17 09:17 Dose: 360 mg Diphenhydramine HCl (Benadryl -) 25 mg PO ONCE PRN PRN Reason: INSOMNIA Last Admin: 09/28/17 21:02 Dose: 25 mg Heparin Sodium (Porcine) (Heparin -) 1,000 unit IVPUSH PRN PRN PRN Reason: Heparin Heparin Sodium (Porcine) (Heparin -) 5,000 unit IVPUSH PRN PRN PRN Reason: Heparin Hydralazine HCl (Apresoline Injection -) 5 mg IVPUSH Q6H PRN PRN Reason: HYPERTENSION Last Admin: 09/25/17 14:39 Dose: 5 mg Hydralazine HCl (Apresoline -) 100 mg PO TID [facility] Last Admin: 09/29/17 05:38 Dose: 100 mg Lactated Ringer's (Lactated Ringers Solution) 1,000 ml in 1,000 mls @ 75 mls/ hr IV ASDIR [facility] Last Admin: 09/28/17 20:13 Dose: 75 mls/hr Metronidazole (Flagyl 500mg Premixed Ivpb -) 500 mg in 100 mls @ 100 mls/hr IVPB Q6H-IV [facility] Last Admin: 09/29/17 09:26 Dose: 100 mls/hr Ceftriaxone Sodium 1 gm/ (Dextrose) 50 mls @ 100 mls/hr IVPB DAILY [facility] Last Admin: 08/22/18 09:17 Dose: 100 mls/hr Heparin Sodium/Dextrose (Heparin Infusion -) 25,000 units in 500 mls @ 20 mls/ hr IVPB TITR [facility]; Protocol Last Titration: 09/28/17 20:35 Dose: 950 units/hr, 19 mls/hr Isosorbide Mononitrate (Imdur -) 30 mg PO DAILY [facility] Last Admin: 09/29/17 09:24 Dose: 30 mg Levothyroxine Sodium (Synthroid Injection -) 37.5 mcg IVPUSH DAILY [facility] Last Admin: 09/29/17 09:19 Dose: 37.5 mcg Methylnaltrexone [place] (Relistor -) 12 mg SQ DAILY [facility] Last Admin: 09/28/17 12:35 Dose: Not Given Metoprolol Succinate (Toprol Xl -) 100 mg PO DAILY [facility] Last Admin: 09/29/17 09:19 Dose: 100 mg Morphine Sulfate (Morphine Sulfate) 1 mg IVPUSH Q4H PRN PRN Reason: PAIN LEVEL 6-10 Last Admin: 09/29/17 09:00 Dose: 1 mg Pantoprazole Sodium (Protonix Iv) 40 mg IVPUSH DAILY [facility] Last Admin: 09/29/17 09:17 Dose: 40 mg Polyethylene Glycol (Miralax (For Daily Use) -) 17 gm PO BID [facility] Last Admin: 09/29/17 09:25 Dose: Not Given Potassium Phos/Sodium Phos (Phos-Nak Packet -) 1 packet PO TID [facility] Last Admin: 09/29/17 05:38 Dose: 1 packet Ranolazine (Ranexa -) 500 mg PO BID [facility] Last Admin: 09/29/17 09:17 Dose: 500 mg - Objective Vital Signs: Vital Signs Temperature 98.2 F 09/29/17 06:00 Pulse Rate 67 09/29/17 06:00 Respiratory Rate 20 09/29/17 06:00 Blood Pressure 113/59 09/29/17 04:00 O2 Sat by Pulse Oximetry (%) 100 09/28/17 21:16 Constitutional: Yes: No Distress, Calm, Thin Neck: Yes: Supple Cardiovascular: Yes: Regular Rate and Rhythm Respiratory: Yes: Regular, Diminished Gastrointestinal: Yes: Normal Bowel Sounds, Soft Edema: No Labs: CBC, BMP 09/29/17 05:30 09/29/17 05:30 - ....Imaging EKG: Report Reviewed (NSR evolved anterior wall WI) Problem List - Problems (1) Acute WI anterior wall subsequent episode care Code(s): I21.09 - STEMI INVOLVING OTH CORONARY ARTERY OF ANTERIOR WALL (2) Acute on chronic systolic and diastolic heart failure, NYHA class 3 Code(s): I50.43 - ACUTE ON CHRONIC COMBINED SYSTOLIC AND DIASTOLIC HRT FAIL (3) Hypertension Code(s): I10 - ESSENTIAL (PRIMARY) HYPERTENSION Qualifiers: Hypertension type: essential hypertension Qualified Code(s): I10 - Essential (primary) hypertension (4) Hypothyroidism Code(s): E03.9 - HYPOTHYROIDISM, UNSPECIFIED Qualifiers: Hypothyroidism type: unspecified Qualified Code(s): E03.9 - Hypothyroidism , unspecified (5) Small bowel obstruction Code(s): K56.609 - UNSP INTESTNL OBST, UNSP TO PARTIAL VERSUS COMPLETE OBST Assessment/Plan Echocardiography performed September 28, 2017 Normal LV size with moderately decreased LVEF 40% and apical akinesis, mild MR, TR, tr AT, RVSP 50-60 mmHg Left heart cardiac catheterization coronary angiography performed October 19, 2013 revealed normal left ventricular systolic function with estimated left ventricular ejection fraction of 60%, 70% LAD-D1 lesion for medical management. Carotid Doppler study performed May 25, 2013 revealed mild degree of atherosclerotic plaque bilaterally with no evidence of hemodynamically significant stenosis. Echocardiography performed May 25, 2013 revealed overall preserved left ventricular systolic function, mitral annular calcification, aortic valve leaflet sclerosis, left atrial dilatation measuring 4.3 cm, mild mitral and tricuspid valve regurgitation with calculated RVSP of 39 mmHg. Pharmacologic (Dipyridamole) myocardial perfusion imaging study performed June 06, 2013 revealed moderate size inferior wall defect compatible with mild ischemia with normal left ventricular contraction pattern on LV gated analysis with calculated left ventricular ejection fraction of 88%. 1. Coronary artery disease post evolving anterior wall non-ST segment elevation myocardial infarction with post-infarction angina pectoris (Troponin I trending down). 2. Acute on chronic diastolic/systolic heart failure 5. Hypertensive cardiovascular disease labile blood pressure. 6. Hypercholesterolemia with prior history of statin therapy administration intolerance. 7. Abnormal hemoglobin A1C. 8. Carotid stenosis mild in severity, asymptomatic. 9. Hypothyroidism. 10. Resolving small bowel obstruction. 11. History of degenerative joint disease with chronic pain syndrome. 12. History of anxiety disorder. PLAN: 1. Continue Toprol-XL 100 qd, Imdur 30 qd, Ranexa 500 bid, d/c Cardizem CD 360 qd, hydralazine 100 tid 2. D/c IVF, start IV diuresis and spirinolactone 25 qd with monitor diuretic response, renal fxn and electrolytes, check CXR 3. Start losartan 25 qd with uptitration as tolerated, increase Lipitor 80 qd 4. Continuation of Aspirin 81 qd, Plavix 75 qd and d/c Heparin therapy, trops have peaked. 5. Considering patient's advanced age, comorbidities and current presentation would recommend conservative medical management unless symptoms persist and/or progress. 6. Complete empiric abx course
[2017-09-29] MEDS ORDERED: LOSARTAN POTASSIUM 50 MG TABLET (FP) PO SCH (10:15)
[2017-09-29] MEDS ORDERED: FUROSEMIDE 40 MG/4 ML INJECTABLE VIAL IVPUSH ONE (10:15)
[2017-09-29] MEDS: Methylnaltrexone Bromide 12 MG/0.6 ML KIT SQ SCH (11:07)
[2017-09-29] MEDS: SPIRONOLACTONE 25 MG TABLET (FP) PO SCH (11:30)
--- NOTE | 2017-09-29 11:42 | PN ---
Teaching Attending Note Name of Resident: Ronnie Kent ATTENDING PHYSICIAN STATEMENT I saw and evaluated the patient. I reviewed the resident's note and discussed the case with the resident. I agree with the resident's findings and plan as documented. SUBJECTIVE: Pt seen and examined in the ICU. Still with intermittent chest pain and shortness of breath. CXR showing increased congestion. BM yesterday. Echocardiogram showing decreased EF with apical akinesis and pulmonary HTN. OBJECTIVE: Vital Signs Period Temp Pulse Resp BP Sys/Glass Pulse Ox Last 24 Hr 98 F-98.8 F 67-79 15-26 113-152/59-84 100 Intake & Output 09/26/17 09/27/17 09/28/17 09/29/17 23:59 23:59 23:59 23:59 Intake Total 2460 2782 2930 1480 Output Total 2300 770 Balance 160 2011 2930 1480 Weight 71.214 kg 74.616 kg Gen: tachypneic at rest Heart: RRR Lung: scattered rhonchi, rales Abd: soft, nontender Ext: no edema CBC, BMP 09/29/17 05:30 09/29/17 05:30 Active Medications Aspirin (Ecotrin -) 81 mg PO DAILY [facility] Last Admin: 09/29/17 09:17 Dose: 81 mg Atorvastatin Calcium (Lipitor -) 40 mg PO HS [facility] Bisacodyl (Dulcolax Suppository -) 10 mg RC DAILY PRN PRN Reason: CONSTIPATION Last Admin: 09/25/17 10:57 Dose: 10 mg Clopidogrel Bisulfate (Plavix -) 75 mg PO DAILY [facility] Last Admin: 09/29/17 09:17 Dose: 75 mg Diphenhydramine HCl (Benadryl -) 25 mg PO ONCE PRN PRN Reason: INSOMNIA Last Admin: 09/28/17 21:02 Dose: 25 mg Furosemide (Lasix -) 40 mg PO DAILY [facility] Lactated Ringer's (Lactated Ringers Solution) 1,000 ml in 1,000 mls @ 75 mls/ hr IV ASDIR [facility] Last Admin: 09/28/17 20:13 Dose: 75 mls/hr Metronidazole (Flagyl 500mg Premixed Ivpb -) 500 mg in 100 mls @ 100 mls/hr IVPB Q6H-IV [facility] Last Admin: 09/29/17 09:26 Dose: 100 mls/hr Ceftriaxone Sodium 1 gm/ (Dextrose) 50 mls @ 100 mls/hr IVPB DAILY [facility] Last Admin: 09/29/17 09:17 Dose: 100 mls/hr Isosorbide Mononitrate (Imdur -) 30 mg PO DAILY [facility] Last Admin: 09/29/17 09:24 Dose: 30 mg Levothyroxine Sodium (Synthroid Injection -) 37.5 mcg IVPUSH DAILY [facility] Last Admin: 09/29/17 09:19 Dose: 37.5 mcg Losartan Potassium (Cozaar -) 50 mg PO DAILY [facility] Methylnaltrexone [place] (Relistor -) 12 mg SQ DAILY [facility] Last Admin: 09/29/17 11:07 Dose: 12 mg Metoprolol Succinate (Toprol Xl -) 100 mg PO DAILY [facility] Last Admin: 09/29/17 09:19 Dose: 100 mg Morphine Sulfate (Morphine Sulfate) 1 mg IVPUSH Q4H PRN PRN Reason: PAIN LEVEL 6-10 Last Admin: 09/29/17 09:00 Dose: 1 mg Pantoprazole Sodium (Protonix Iv) 40 mg IVPUSH DAILY [facility] Last Admin: 09/29/17 09:17 Dose: 40 mg Polyethylene Glycol (Miralax (For Daily Use) -) 17 gm PO BID [facility] Last Admin: 09/29/17 09:25 Dose: Not Given Potassium Phos/Sodium Phos (Phos-Nak Packet -) 1 packet PO TID [facility] Last Admin: 09/29/17 05:38 Dose: 1 packet Ranolazine (Ranexa -) 500 mg PO BID [facility] Last Admin: 09/29/17 09:17 Dose: 500 mg Spironolactone (Aldactone -) 50 mg PO DAILY [facility] ASSESSMENT AND PLAN: Partial Small Bowel Obstruction resolving Acute NSTEMI Acute Systolic Heart Failure Pulmonary HTN Opiate Dependence Fecal Impaction Diverticulosis Lactic Acidosis HTN Hypothyroidism - ASA, plavix - beta felix, statin - IV lasix today - monitor urine output, creatinine - pain control - bowel regimen - PO per GI - continue relistor - can stop empiric antibiotics - DVT prophylaxis - continue ICU monitoring
--- NOTE | 2017-09-29 13:04 | PN ---
GI Progress Note Subjective: GI NOte: Ate solid breakfast but nor interested in lunch. Denies abdominal pain or nausea. - Objective Vital Signs: Vital Signs Temperature 98.8 F 09/29/17 10:38 Pulse Rate 77 09/29/17 10:38 Respiratory Rate 15 09/29/17 10:38 Blood Pressure 140/84 09/29/17 10:38 O2 Sat by Pulse Oximetry (%) 100 09/28/17 21:16 Constitutional: No Distress ...Auscultate: Yes: Normoactive Bowel Sounds ...Palpate: Yes: Soft, Other (nontender) Labs: CBC, BMP 09/29/17 05:30 09/29/17 05:30 Problem List - Problems (1) Small bowel obstruction Assessment/Plan: Resolved SBO. Trial of soft diet . Continue Miralax Code(s): K56.609 - UNSP INTESTNL OBST, UNSP TO PARTIAL VERSUS COMPLETE OBST (2) History of colon polyps Code(s): Z86.010 - PERSONAL HISTORY OF COLONIC POLYPS (3) Constipation due to opioid therapy Code(s): K59.03 - DRUG INDUCED CONSTIPATION; T40.2X5A - ADVERSE EFFECT OF OTHER OPIOIDS, INITIAL ENCOUNTER (4) Hiatal hernia Code(s): K44.9 - DIAPHRAGMATIC HERNIA WITHOUT OBSTRUCTION OR GANGRENE (5) Macular degeneration Code(s): H35.30 - UNSPECIFIED MACULAR DEGENERATION
--- NOTE | 2017-09-29 13:20 | PN ---
Physical Exam: SUBJECTIVE: Patient seen and examined at bedside. Complains of fluctuating chest pain. OBJECTIVE: Vital Signs Period Temp Pulse Resp BP Sys/Glass Pulse Ox Last 24 Hr 98 F-99.2 F 67-85 15-26 113-152/59-91 100 GENERAL: The patient is awake, alert, and fully oriented, in no acute distress. HEAD: Normal with no signs of trauma. NECK: Trachea midline, full range of motion, supple. LUNGS: Breath sounds equal, clear to auscultation bilaterally, no wheezes, no crackles, no accessory muscle use. HEART: Regular rate and rhythm, S1, S2 without murmur, rub or gallop. ABDOMEN: Soft, mild tenderness to palpation, nondistended, normoactive bowel sounds, no guarding, no rebound. EXTREMITIES: 2+ pulses, warm, well-perfused, no edema. NEUROLOGICAL: Cranial nerves II through X grossly intact. Normal speech, gait not observed. SKIN: Warm, dry, normal turgor, no rashes or lesions noted Laboratory Results - last 24 hr 09/28/17 09/28/17 09/29/17 12:17 18:15 05:30 WBC 11.5 H RBC 3.79 Hgb 11.2 Hct 33.2 MCV 87.7 MCH 29.6 MCHC 33.8 RDW 13.1 Plt Count 286 MPV 7.9 PTT (Actin FS) 85.2 H Sodium Potassium Chloride Carbon Dioxide Anion Gap BUN Creatinine Creat Clearance w eGFR Random Glucose Calcium Phosphorus Magnesium Total Bilirubin AST ALT Alkaline Phosphatase Troponin I 1.74 H* Total Protein Albumin 09/29/17 09/29/17 09/29/17 05:30 05:30 05:30 WBC RBC Hgb Hct MCV MCH MCHC RDW Plt Count MPV PTT (Actin FS) 74.0 H Sodium 140 Potassium 3.8 Chloride 104 Carbon Dioxide 26 Anion Gap 10 BUN 12 Creatinine 0.4 L Creat Clearance w eGFR > 60 Random Glucose 136 H Calcium 8.4 L Phosphorus 2.5 Magnesium 1.7 L Total Bilirubin 0.6 AST 25 ALT 23 Alkaline Phosphatase 45 Troponin I 0.87 H* Cancelled Total Protein 6.2 L Albumin 3.0 L Active Medications Generic Name Dose Route Start Last Admin Trade Name Freq PRN Reason Stop Dose Admin Aspirin 81 mg 09/29/17 10:00 09/29/17 09:17 Ecotrin - PO 81 mg DAILY JN Administration Atorvastatin Calcium 40 mg 09/29/17 22:00 Lipitor - PO HS JN Bisacodyl 10 mg 09/25/17 10:22 09/25/17 10:57 Dulcolax Suppository - RC 10 mg DAILY PRN Administration CONSTIPATION Clopidogrel Bisulfate 75 mg 09/29/17 10:00 09/29/17 09:17 Plavix - PO 75 mg DAILY JN Administration Diphenhydramine HCl 25 mg 09/28/17 22:00 09/28/17 21:02 Benadryl - PO 25 mg ONCE PRN Administration INSOMNIA Furosemide 40 mg 09/29/17 14:00 Lasix Injection - IVPUSH BID@0600,1400 JN Lactated Ringer's 1,000 ml in 1,000 mls @ 75 mls/hr 09/25/17 17:15 09/28/17 20:13 Lactated Ringers Solution IV 75 mls/hr ASDIR JN Administration Isosorbide Mononitrate 30 mg 09/28/17 14:30 09/29/17 09:24 Imdur - PO 30 mg DAILY JN Administration Levothyroxine Sodium 37.5 mcg 09/25/17 10:00 09/29/17 09:19 Synthroid Injection - IVPUSH 37.5 mcg DAILY JN Administration Losartan Potassium 50 mg 09/29/17 10:15 Cozaar - PO DAILY JN Methylnaltrexone [place] 12 mg 09/27/17 11:30 09/29/17 11:07 Relistor - SQ 12 mg DAILY JN Administration Metoprolol Succinate 100 mg 09/26/17 14:15 09/29/17 09:19 Toprol Xl - PO 100 mg DAILY JN Administration Morphine Sulfate 1 mg 09/28/17 11:45 09/29/17 09:00 Morphine Sulfate IVPUSH 1 mg Q4H PRN Administration PAIN LEVEL 6-10 Pantoprazole Sodium 40 mg 09/25/17 18:00 09/29/17 09:17 Protonix Iv IVPUSH 40 mg DAILY JN Administration Polyethylene Glycol 17 gm 09/29/17 10:00 09/29/17 09:25 Miralax (For Daily Use) - PO Not Given BID JN Potassium Phos/Sodium Phos 1 packet 09/26/17 14:00 09/29/17 05:38 Phos-Nak Packet - PO 1 packet TID JN Administration Ranolazine 500 mg 09/28/17 22:00 09/29/17 09:17 Ranexa - PO 500 mg BID JN Administration Spironolactone 50 mg 09/29/17 10:30 Aldactone - PO DAILY JN ASSESSMENT/PLAN: The patient is an 87 yo F w/ pmhx of HTN, hypothyroidism, diverticulosis, melanoma, basal cell carcinoma, and hiatal hernia presented with 1 day h/o nausea and vomiting associated with abdominal pain. 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 T Wave inversions. -given Aspirin 162 mg PO once, now 81 daily -given Plavix 300 mg PO once, now 75 daily -Metoprolol succinate 100 mg PO QD -Ranexa 500 mg PO BID -Lasix 40 BID -Spironolactone 50 daily -Atorvastatin 40 qHS -Imdur 30 daily -repeat trops 2.53 --> 1.74 --> 0.87 -heparin drip d/c'd -lipid profile for AM -f/u cardio recs #SBO; Multiple episodes of diarrhea reported last night. -NGT removed x2 -Morphine Sulfate 1 mg Q4H PRN for pain -Surgical and GI evaluation: s/p disimpaction, medical management currently; Surgical intervention not likely needed. -cont to monitor BM, serial abd exams -Methylnaltrexone [place] (Relistor) 12 mg SQ QD for opioid-induced constipation -Miralax 17 gm PO TID -stool cx: final results negative throughout #Leukocytosis w/ elevated lactate; WBC 11 --> 12.6 --> 11.5 today. -Pt is afebrile, WBC increased, but pt clinically asymptomatic. -Lactate has normalized. -ABx d/c'd #Hypokalemia; K 3.8 today. -KPhos 1 packet TID -on LR -recheck BMP in AM #hypoMg -Mg 1.7 -2g IVPB given #MEL; Resolved. -gentle hydration with LR @75cc/hr -avoid nephrotoxic meds #HTN -hydralazine and diltiazem d/c'd -Losartan 50 daily -cont to monitor BP #Hypothyroidism -Levothyroxine 37.5 mcg IVP QD #DVT Ppx -Heparin drip d/c'd -SCD's #GI Ppx -Protonix 40 mg IVP QD #FEN -LR @ 75cc/hr -lytes repleted by ICU team. recheck lytes in AM -full liquid diet dispo -full code Visit type - Emergency Visit Emergency Visit: No - New Patient This patient is new to me today: Yes Date on this admission: 10/04/17 - Critical Care Critical Care patient: No
[2017-09-29] MEDS: FUROSEMIDE 40 MG/4 ML INJECTABLE VIAL IVPUSH SCH (13:47)
[2017-09-29] MEDS ORDERED: LOSARTAN POTASSIUM 25 MG TABLET PO SCH (14:15)
--- NOTE | 2017-09-29 14:21 | PN ---
Teaching Attending Note Name of Resident: Mimi Esteves ATTENDING PHYSICIAN STATEMENT I saw and evaluated the patient. I reviewed the resident's note and discussed the case with the resident. I agree with the resident's findings and plan as documented. SUBJECTIVE: cont to have chest pain, has no fever or chills. feels SOB . No cough , having BMs . does not want to eat solids as her diet is icecream and milk OBJECTIVE: NAD, awake , alert , cooperative CV: RRR, no MRG , JVD + Lungs: CTAB ABd: soft, distended in upper part, tympanic in upper part. tender in all quadrants. Ext: No edema on LE. L upper ext bruise and edema in anti-cubital area. ASSESSMENT AND PLAN: pleasant 87 y/o lady with h/o carotid stenosis , CAD, MR, TR, HTN, HLP, D CHF, NSTEMI, hiatal hernia , melanoma, BCC, hypothyroidism and chronic opioid dependence who presented with abdominal pain and was found to have SBO. Her hospital course was complicated by NSTEMI. 1- SBO: improved. has BMs and tolerating diet . - DC Abx - cont to try soft diet, if patient is willing to eat solids. - dc IVF due to signs of overload. 2- NSTEMI: EKGs reviewed. this am : R axis, TWI in lateral leads. HAs signs of fluid overload. Echo with apical akinesis. - case d/w Dr. Lai - start diuresis - cont statin, imdur, ranexa, and BB - cont asa and plavix - dc heparin gtt and cardizem, and hydralazine - add losartan 3- Acute systolic heart failure : after MS. EF 40 %. - start lasix and spironolactone - ARB. 4- Constipation : cont bowel regimen. 5- hypomagnesemia : replete Critical Care Total Critical Care Time (in minutes): 40 Critical Care Statement: The care of this patient involved high complexity decision making to prevent further life threatening deterioration of the patient 's condition and/or to evaluate & treat vital organ system(s) failure or risk of failure.
[2017-09-29] MEDS ORDERED: MAGNESIUM OXIDE 400 MG TABLET (FP) PO ONE (14:45)
[2017-09-29] MEDS ORDERED: MAGNESIUM SULF 50% (8.12 MEQ/2 ML-1 GM VIAL) IVPB ONE (15:08)
[2017-09-29] MEDS ORDERED: MAGNESIUM SULFATE IN WATER 2 GM/50 ML IVPB IVPB ONE (15:30)
--- NOTE | 2017-09-29 20:13 | EKG ---
Test Reason : Blood Pressure : / mmHG Vent. Rate : 073 BPM Atrial Rate : 073 BPM P-R Int : 156 ms QRS Dur : 072 ms QT Int : 356 ms P-R-T Axes : 067 098 006 degrees QTc Int : 392 ms POOR DATA QUALITY, INTERPRETATION MAY BE ADVERSELY AFFECTED NORMAL SINUS RHYTHM RIGHTWARD AXIS LOW VOLTAGE QRS NONSPECIFIC T WAVE ABNORMALITY ABNORMAL ECG WHEN COMPARED WITH ECG OF 28-SEP-2017 23:12, QUESTIONABLE CHANGE IN QRS AXIS Confirmed by QUINTEN SNÁCHEZ MD ([id number]) on 09/29/2017 8:12:46 PM Referred By: Confirmed By:QUINTEN SÁNCHEZ MD
[2017-09-29] MEDS ORDERED: ATORVASTATIN CA 40 MG TABLET (FP) PO SCH (22:00)
--- NOTE | 2017-09-29 22:07 | PN ---
Physical Exam: SUBJECTIVE: Patient seen and examined this am in icu. C/o chest pain and sob this am, EKG and Troponin levels ordered. No fevers. OBJECTIVE: Vital Signs Period Temp Pulse Resp BP Sys/Glass Pulse Ox Last 24 Hr 98.2 F-99.2 F 63-85 - 105-140/54-91 91 GENERAL: Pleasent, AAOx3. SOB earlier this am, chest pain. HEAD: NC/AT EYES: Glasses. EOMI. ENT: MMM NECK: Supple, No JVD LUNGS: Dec BS at bases HEART: RRR ABDOMEN: Tender abdomen EXTREMITIES: 2+ pulses, warm NEUROLOGICAL: No Neuro Deficits PSYCH: Normal mood, normal affect. SKIN: No rashes or lesions appreciated Laboratory Results - last 24 hr 09/29/17 09/29/17 09/29/17 05:30 05:30 05:30 WBC 11.5 H RBC 3.79 Hgb 11.2 Hct 33.2 MCV 87.7 MCH 29.6 MCHC 33.8 RDW 13.1 Plt Count 286 MPV 7.9 PTT (Actin FS) 74.0 H Sodium 140 Potassium 3.8 Chloride 104 Carbon Dioxide 26 Anion Gap 10 BUN 12 Creatinine 0.4 L Creat Clearance w eGFR > 60 Random Glucose 136 H Calcium 8.4 L Phosphorus 2.5 Magnesium 1.7 L Total Bilirubin 0.6 AST 25 ALT 23 Alkaline Phosphatase 45 Troponin I 0.87 H* Total Protein 6.2 L Albumin 3.0 L 09/29/17 05:30 WBC RBC Hgb Hct MCV MCH MCHC RDW Plt Count MPV PTT (Actin FS) Sodium Potassium Chloride Carbon Dioxide Anion Gap BUN Creatinine Creat Clearance w eGFR Random Glucose Calcium Phosphorus Magnesium Total Bilirubin AST ALT Alkaline Phosphatase Troponin I Cancelled Total Protein Albumin Active Medications Generic Name Dose Route Start Last Admin Trade Name Freq PRN Reason Stop Dose Admin Aspirin 81 mg 09/29/17 10:00 09/29/17 09:17 Ecotrin - PO 81 mg DAILY JN Administration Atorvastatin Calcium 40 mg 09/29/17 22:00 09/29/17 21:09 Lipitor - PO 40 mg HS JN Administration Bisacodyl 10 mg 09/25/17 10:22 09/25/17 10:57 Dulcolax Suppository - RC 10 mg DAILY PRN Administration CONSTIPATION Clopidogrel Bisulfate 75 mg 09/29/17 10:00 09/29/17 09:17 Plavix - PO 75 mg DAILY JN Administration Diphenhydramine HCl 25 mg 09/28/17 22:00 09/28/17 21:02 Benadryl - PO 25 mg ONCE PRN Administration INSOMNIA Furosemide 40 mg 09/29/17 14:00 09/29/17 13:47 Lasix Injection - IVPUSH 40 mg BID@0600,1400 JN Administration Isosorbide Mononitrate 30 mg 09/28/17 14:30 09/29/17 09:24 Imdur - PO 30 mg DAILY JN Administration Levothyroxine Sodium 37.5 mcg 09/25/17 10:00 09/29/17 09:19 Synthroid Injection - IVPUSH 37.5 mcg DAILY JN Administration Losartan Potassium 25 mg 09/29/17 14:15 09/29/17 14:30 Cozaar - PO Not Given DAILY JN Methylnaltrexone [place] 12 mg 09/27/17 11:30 09/29/17 11:07 Relistor - SQ 12 mg DAILY JN Administration Metoprolol Succinate 100 mg 09/26/17 14:15 09/29/17 09:19 Toprol Xl - PO 100 mg DAILY JN Administration Morphine Sulfate 1 mg 09/28/17 11:45 09/29/17 18:00 Morphine Sulfate IVPUSH 1 mg Q4H PRN Administration PAIN LEVEL 6-10 Pantoprazole Sodium 40 mg 09/25/17 18:00 09/29/17 09:17 Protonix Iv IVPUSH 40 mg DAILY JN Administration Polyethylene Glycol 17 gm 09/29/17 10:00 09/29/17 21:12 Miralax (For Daily Use) - PO 17 grams BID JN Administration Potassium Phos/Sodium Phos 1 packet 09/26/17 14:00 09/29/17 21:09 Phos-Nak Packet - PO 1 packet TID JN Administration Ranolazine 500 mg 09/28/17 22:00 09/29/17 21:09 Ranexa - PO 500 mg BID JN Administration Spironolactone 50 mg 09/29/17 10:30 09/29/17 11:30 Aldactone - PO 50 mg DAILY JN Administration ASSESSMENT/PLAN: 87 y/o F w/PMH of HTN, hypothyroidism, diverticulosis, melanoma, basal cell ca, hiatal hernia presented to the ER w/N/V and abd pain. Found to have partial SBO. Cardio: NON ST Elevation M.I -Troponin---> 1.74 yesterday---> 0.84 this am. -Heparin 25,000 U IVPB -Morphine 1 mg IVPUSH Q4H PRN -Echo -Plavix 75 mg po daily - ASA 81 MG PO daily -Ranexa 500 mg po bid -Toprol XL 100 mg po daily -Cozaar 25 mg po daily -Furosemide 40 mg IVPUSH BID EKG 09/28/17---> EKG changes in lateral leads. T Wave inversions. EKG 09/29/17---> Rightward axis. Low Voltage QRS. Nonspecific T Wave abnormality. Echo 09/28---> Apical akinesis, EF 40%. RVSP elevated 50-60 mmhg G.I- Partial SBO-Resolved -Clear Liquid Diet -G.I on board -Pain Control-->Morphine Sulfate 1 mg ivpush Q4H PRN -Ceftriaxone Sodium 1 gm 50 mls @ 100 mls/hr IVPB--> D/C'ed today per Hospitalist team -Flagyl 500 mg in 100 mls @ 100 mls/hr--> D/C'ed per hospitalist team today -ABX 09/26/17-->Decreasing small Bowel Air Distension. Porcelain Gallbladder. -GI evaluation for endoscopy -Relistor For opioid induced constipation. Hypothyroidism Levothyroxine 37.5 mcg IVPUSH FEN No Fluids Monitor Electrolytes Full Liquid Dispo: Continue to monitor in icu. Visit type - Emergency Visit Emergency Visit: Yes ED Registration Date: 09/24/17 Care time: The patient presented to the Emergency Department on the above date and was hospitalized for further evaluation of their emergent condition. - New Patient This patient is new to me today: No - Critical Care Critical Care patient: Yes Total Critical Care Time (in minutes): 35 Critical Care Statement: The care of this patient involved high complexity decision making to prevent further life threatening deterioration of the patient 's condition and/or to evaluate & treat vital organ system(s) failure or risk of failure.
[2017-09-30] MEDS: MORPHINE SULFATE 2 MG/ML VIAL IVPUSH PRN ×2 (02:52→08:16)
[2017-09-30] MEDS: FUROSEMIDE 40 MG/4 ML INJECTABLE VIAL IVPUSH SCH (05:51)
[2017-09-30] MEDS: NAPH,MB-DB/K PH,MBDB POWDER PACKET PO SCH ×3 (05:52→21:24)
[2017-09-30 06:54] LABS: HEMATOCRIT 33.3 % (32.4-45.2); HEMOGLOBIN 11.4 GM/dL (10.7-15.3); MCH 30.4 pg (25.7-33.7); MCHC 34.1 g/dl (32.0-36.0); MEAN CELL VOLUME 89.2 fl (80-96); MEAN PLT VOLUME 8.5 fl (7.5-11.1); PLATELET COUNT 248 K/MM3 (134-434); RBC 3.74 M/mm3 (3.60-5.2); RDW 13.2 % (11.6-15.6)
[2017-09-30 07:24] LABS: ANION GAP 11 MMOL/L (8-16); BLOOD UREA NITROGEN 10 mg/dL (7-18); CALCIUM 8.4 mg/dL (8.5-10.1); CHLORIDE 100 mmol/L (98-107); CO2 29 mmol/L (21-32); GLUCOSE,RANDOM 119 mg/dL (74-106); POTASSIUM 3.3 mmol/L (3.5-5.1); SGOT/AST 19 U/L (15-37); SODIUM 140 mmol/L (136-145)
[2017-09-30 07:28] LABS: ALK PHOS 44 U/L (45-117); BILIRUBIN,TOTAL 0.7 mg/dL (0.2-1.0); CHOLESTEROL 71 mg/dL (50-200); CREATININE 0.5 mg/dL (0.55-1.02); HDL CHOLESTEROL 31 mg/dL (40-60); PHOSPHOROUS 2.7 mg/dL (2.5-4.9); SGPT/ALT 20 U/L (12-78); TOT PROT 6.4 g/dl (6.4-8.2); TRIGLYCERIDES 121 mg/dL (35-160)
[2017-09-30] MEDS ORDERED: LIDOCAINE 5% TOPICAL PATCH TP ONE (07:45)
[2017-09-30] MEDS ORDERED: PT OWN MED DRAWER 7, Y5N ONE (08:06)
[2017-09-30] MEDS ORDERED: POTASSIUM CHLORIDE TABS 20 MEQ TABLET.ER (FP) PO ONE (08:30)
--- NOTE | 2017-09-30 09:24 | PN ---
Progress Note, Physician History of Present Illness: Reports chest pain, dyspnea, orthopnea, improving with diuresis, reports chronic LBP pain. - Current Medication List Current Medications: Active Medications Aspirin (Ecotrin -) 81 mg PO DAILY [facility] Last Admin: 09/29/17 09:17 Dose: 81 mg Atorvastatin Calcium (Lipitor -) 40 mg PO HS [facility] Last Admin: 09/29/17 21:09 Dose: 40 mg Bisacodyl (Dulcolax Suppository -) 10 mg RC DAILY PRN PRN Reason: CONSTIPATION Last Admin: 09/25/17 10:57 Dose: 10 mg Clopidogrel Bisulfate (Plavix -) 75 mg PO DAILY [facility] Last Admin: 09/29/17 09:17 Dose: 75 mg Diphenhydramine HCl (Benadryl -) 25 mg PO ONCE PRN PRN Reason: INSOMNIA Last Admin: 09/28/17 21:02 Dose: 25 mg Furosemide (Lasix Injection -) 40 mg IVPUSH BID@0600,1400 [facility] Last Admin: 09/30/17 05:51 Dose: 40 mg Isosorbide Mononitrate (Imdur -) 30 mg PO DAILY [facility] Last Admin: 09/29/17 09:24 Dose: 30 mg Levothyroxine Sodium (Synthroid Injection -) 37.5 mcg IVPUSH DAILY [facility] Last Admin: 09/29/17 09:19 Dose: 37.5 mcg Losartan Potassium (Cozaar -) 25 mg PO DAILY [facility] Last Admin: 09/29/17 14:30 Dose: Not Given Methylnaltrexone [place] (Relistor -) 12 mg SQ DAILY [facility] Last Admin: 09/29/17 11:07 Dose: 12 mg Metoprolol Succinate (Toprol Xl -) 100 mg PO DAILY [facility] Last Admin: 09/29/17 09:19 Dose: 100 mg Miscellaneous (Lidoderm Patch Removal) 1 each MC ONCE@2200 ONE Stop: 09/30/17 22:01 Morphine Sulfate (Morphine Sulfate) 1 mg IVPUSH Q4H PRN PRN Reason: PAIN LEVEL 6-10 Last Admin: 09/30/17 08:16 Dose: 1 mg Pantoprazole Sodium (Protonix Iv) 40 mg IVPUSH DAILY [facility] Last Admin: 09/29/17 09:17 Dose: 40 mg Polyethylene Glycol (Miralax (For Daily Use) -) 17 gm PO BID [facility] Last Admin: 09/29/17 21:12 Dose: 17 grams Potassium Phos/Sodium Phos (Phos-Nak Packet -) 1 packet PO TID [facility] Last Admin: 09/30/17 05:52 Dose: 1 packet Ranolazine (Ranexa -) 500 mg PO BID [facility] Last Admin: 09/29/17 21:09 Dose: 500 mg Spironolactone (Aldactone -) 50 mg PO DAILY [facility] Last Admin: 09/29/17 11:30 Dose: 50 mg - Objective Vital Signs: Vital Signs Temperature 96.8 F L 09/30/17 06:00 Pulse Rate 68 09/30/17 08:51 Respiratory Rate 18 09/30/17 08:51 Blood Pressure 129/70 09/30/17 08:51 O2 Sat by Pulse Oximetry (%) 98 09/30/17 08:30 Constitutional: Yes: No Distress, Calm, Thin Neck: Yes: Supple Cardiovascular: Yes: Regular Rate and Rhythm Respiratory: Yes: Regular, Diminished, On Nasal O2 Gastrointestinal: Yes: Normal Bowel Sounds, Soft Edema: No Labs: CBC, BMP 09/30/17 05:30 09/30/17 05:30 - ....Imaging Chest X-ray: Report Reviewed (Improving congestion and effusions) Problem List - Problems (1) Acute LA anterior wall subsequent episode care Code(s): I21.09 - STEMI INVOLVING OTH CORONARY ARTERY OF ANTERIOR WALL (2) Acute on chronic systolic and diastolic heart failure, NYHA class 3 Code(s): I50.43 - ACUTE ON CHRONIC COMBINED SYSTOLIC AND DIASTOLIC HRT FAIL (3) Hypertension Code(s): I10 - ESSENTIAL (PRIMARY) HYPERTENSION Qualifiers: Hypertension type: essential hypertension Qualified Code(s): I10 - Essential (primary) hypertension (4) Hypothyroidism Code(s): E03.9 - HYPOTHYROIDISM, UNSPECIFIED Qualifiers: Hypothyroidism type: unspecified Qualified Code(s): E03.9 - Hypothyroidism , unspecified (5) Small bowel obstruction Code(s): K56.609 - UNSP INTESTNL OBST, UNSP TO PARTIAL VERSUS COMPLETE OBST Assessment/Plan Echocardiography performed September 28, 2017 Normal LV size with moderately decreased LVEF 40% and apical akinesis, mild MR, TR, tr AT, RVSP 50-60 mmHg Left heart cardiac catheterization coronary angiography performed October 19, 2013 revealed normal left ventricular systolic function with estimated left ventricular ejection fraction of 60%, 70% LAD-D1 lesion for medical management. Carotid Doppler study performed May 25, 2013 revealed mild degree of atherosclerotic plaque bilaterally with no evidence of hemodynamically significant stenosis. Echocardiography performed May 25, 2013 revealed overall preserved left ventricular systolic function, mitral annular calcification, aortic valve leaflet sclerosis, left atrial dilatation measuring 4.3 cm, mild mitral and tricuspid valve regurgitation with calculated RVSP of 39 mmHg. Pharmacologic (Dipyridamole) myocardial perfusion imaging study performed June 06, 2013 revealed moderate size inferior wall defect compatible with mild ischemia with normal left ventricular contraction pattern on LV gated analysis with calculated left ventricular ejection fraction of 88%. 1. Coronary artery disease post evolving anterior wall non-ST segment elevation myocardial infarction with post-infarction angina pectoris (Troponin I trending down). 2. Acute on chronic diastolic/systolic heart failure improving 3. Hypertensive cardiovascular disease labile blood pressure. 4. Hypercholesterolemia with prior history of statin therapy administration intolerance. 5. Abnormal hemoglobin A1C. 6. Carotid stenosis mild in severity, asymptomatic. 7. Hypothyroidism. 8. Resolved small bowel obstruction. 9. History of degenerative joint disease with chronic pain syndrome. 10. History of anxiety disorder. PLAN: 1. Continue Toprol-XL 100 qd, Imdur 30 qd, Ranexa 500 bid 2. Decrease IV diuresis and spirinolactone 50 qd with monitor diuretic response , renal fxn and electrolytes, replete K 3. Increase losartan 50 qd with uptitration as tolerated, increase Lipitor 80 qd as tolerated 4. Continuation of Aspirin 81 qd, Plavix 75 qd and d/c Heparin therapy, trops have peaked. 5. Considering patient's advanced age, comorbidities and current presentation would recommend conservative medical management unless symptoms persist and/or progress. 6. May transfer to telemetry
[2017-09-30] MEDS: LEVOTHYROXINE SODIUM 100 MCG VIAL IVPUSH SCH (09:45)
[2017-09-30] MEDS ORDERED: ACETAMINOPHEN 325 MG TABLET (FP) PO PRN (09:45)
[2017-09-30] MEDS ORDERED: LOSARTAN POTASSIUM 25 MG TABLET PO SCH (09:45)
[2017-09-30] MEDS: SPIRONOLACTONE 25 MG TABLET (FP) PO SCH (09:56)
[2017-09-30] MEDS: ASPIRIN COATED 81 MG TABLET.EC PO SCH (09:57)
[2017-09-30] MEDS: POLYETHYLENE GLYCOL 3350 119 GM BTL PO SCH (09:58)
[2017-09-30] MEDS: ISOSORBIDE MONONITRATE 30 MG TAB.SR.24H (FP) PO SCH (09:58)
[2017-09-30] MEDS: PANTOPRAZOLE SODIUM 40 MG VIAL IVPUSH SCH (09:59)
[2017-09-30] MEDS: CLOPIDOGREL BISULFATE 75 MG TABLET (FP) PO SCH (09:59)
[2017-09-30] MEDS ORDERED: PANTOPRAZOLE 40 MG TABLET (FP) PO SCH (10:00)
[2017-09-30] MEDS ORDERED: FUROSEMIDE 40 MG TABLET (FP) PO SCH (10:00)
[2017-09-30] MEDS: RANOLAZINE E.R. 500 MG TABLET (FP) PO SCH ×2 (10:00→21:24)
[2017-09-30] MEDS: oxyCODONE HCL 5 MG TABLET PO PRN ×3 (11:01→19:45)
--- NOTE | 2017-09-30 11:06 | PN ---
Teaching Attending Note Name of Resident: Ronnie Kent ATTENDING PHYSICIAN STATEMENT I saw and evaluated the patient. I reviewed the resident's note and discussed the case with the resident. I agree with the resident's findings and plan as documented. SUBJECTIVE: Pt seen and examined in the ICU. Breathing better today with diuresis. Episode of diarrhea yesterday. Abdominal pain improving. OBJECTIVE: Vital Signs Period Temp Pulse Resp BP Sys/Glass Pulse Ox Last 24 Hr 96.8 F-99.2 F 56-85 16-22 98-129/46-91 93-98 Intake & Output 09/27/17 09/28/17 09/29/17 09/30/17 23:59 23:59 23:59 23:59 Intake Total 2782 2930 3657 Output Total 770 2750 Balance 2011 2930 907 Weight 71.214 kg 74.616 kg Gen: NAD at rest Heart: RRR Lung: decreased breath sounds at the bases, scattered rales Abd: softly distended, nontender Ext: no edema CBC, BMP 09/30/17 05:30 09/30/17 05:30 Active Medications Acetaminophen (Tylenol -) 650 mg PO Q4H PRN PRN Reason: PAIN 1-3 Aspirin (Ecotrin -) 81 mg PO DAILY [facility] Last Admin: 09/30/17 09:57 Dose: 81 mg Atorvastatin Calcium (Lipitor -) 40 mg PO HS [facility] Last Admin: 09/29/17 21:09 Dose: 40 mg Bisacodyl (Dulcolax Suppository -) 10 mg RC DAILY PRN PRN Reason: CONSTIPATION Last Admin: 09/25/17 10:57 Dose: 10 mg Clopidogrel Bisulfate (Plavix -) 75 mg PO DAILY [facility] Last Admin: 09/30/17 09:59 Dose: 75 mg Diphenhydramine HCl (Benadryl -) 25 mg PO ONCE PRN PRN Reason: INSOMNIA Last Admin: 09/28/17 21:02 Dose: 25 mg Furosemide (Lasix Injection -) 40 mg IVPUSH DAILY [facility] Isosorbide Mononitrate (Imdur -) 30 mg PO DAILY [facility] Last Admin: 09/30/17 09:58 Dose: 30 mg Levothyroxine Sodium (Synthroid Injection -) 37.5 mcg IVPUSH DAILY [facility] Last Admin: 09/30/17 09:45 Dose: 37.5 mcg Losartan Potassium (Cozaar -) 50 mg PO DAILY [facility] Last Admin: 09/30/17 09:54 Dose: 50 mg Methylnaltrexone [place] (Relistor -) 12 mg SQ DAILY [facility] Last Admin: 09/29/17 11:07 Dose: 12 mg Metoprolol Succinate (Toprol Xl -) 100 mg PO DAILY [facility] Last Admin: 09/30/17 10:00 Dose: 100 mg Miscellaneous (Lidoderm Patch Removal) 1 each ONCE@2200 ONE Stop: 09/30/17 22:01 Oxycodone HCl (Roxicodone -) 5 mg PO Q4H PRN PRN Reason: PAIN LEVEL 6-10 Last Admin: 09/30/17 11:01 Dose: 5 mg Pantoprazole Sodium (Protonix -) 40 mg PO DAILY [facility] Last Admin: 09/30/17 10:34 Dose: Not Given Polyethylene Glycol (Miralax (For Daily Use) -) 17 gm PO BID [facility] Last Admin: 09/30/17 09:58 Dose: 17 grams Potassium Phos/Sodium Phos (Phos-Nak Packet -) 1 packet PO TID [facility] Last Admin: 09/30/17 05:52 Dose: 1 packet Ranolazine (Ranexa -) 500 mg PO BID [facility] Last Admin: 09/30/17 10:00 Dose: 500 mg Spironolactone (Aldactone -) 50 mg PO DAILY [facility] Last Admin: 09/30/17 09:56 Dose: 50 mg ASSESSMENT AND PLAN: Partial Small Bowel Obstruction resolving Acute NSTEMI Acute Systolic Heart Failure Pulmonary HTN Opiate Dependence Fecal Impaction Diverticulosis Lactic Acidosis HTN Hypothyroidism - ASA, plavix - beta felix, statin - continue lasix - monitor urine output, creatinine - pain control - bowel regimen - PO as tolerated - continue relistor - s/p empiric antibiotics - DVT prophylaxis - can monitor on telemetry
[2017-09-30] MEDS: Methylnaltrexone Bromide 12 MG/0.6 ML KIT SQ SCH (11:59)
--- NOTE | 2017-09-30 12:36 | PN ---
Teaching Attending Note Name of Resident: Jyothi Shafer ATTENDING PHYSICIAN STATEMENT I saw and evaluated the patient. I reviewed the resident's note and discussed the case with the resident. I agree with the resident's findings and plan as documented. SUBJECTIVE: No fever or chills, has generalized pain especially in lower back, L hip. has some degree of chest pain. SOB has much improved. OBJECTIVE: NAD, awake , alert , cooperative CV: RRR, no MRG , JVD + ( improved though ) Lungs: CTAB ABd: soft, less distended and softer. NL BS Ext: No edema on LE. L upper ext bruise has extended in antecubital area. ASSESSMENT AND PLAN: pleasant 87 y/o lady with h/o carotid stenosis , CAD, MR, TR, HTN, HLP, D CHF, NSTEMI, hiatal hernia , melanoma, BCC, hypothyroidism and chronic opioid dependence who presented with abdominal pain and was found to have SBO. Her hospital course was complicated by NSTEMI. 1- SBO: improved. - cont current diet - monitor bowel movement . hold miralax due to diarrhea 2- NSTEMI: medical management - cont diuresis - cont imdur, ranexa, and BB - cont asa and plavix - losartan with titration - LDL 35 , cont statin 40 mg 3- Acute systolic heart failure : after ME. EF 40 %. - cont lasix ( decreased ) and spironolactone - ARB. 4- Constipation : cont bowel regimen. as above 5-replete elctrolytes as needed Tx to tele
[2017-09-30] MEDS ORDERED: FUROSEMIDE 40 MG/4 ML INJECTABLE VIAL IVPUSH ONE (14:00)
--- NOTE | 2017-09-30 17:02 | PN ---
Physical Exam: SUBJECTIVE: Patient seen and examined at bedside. No acute events overnight. Pt complains of persistent chest pressure, but improved since yesterday. Still complains of abdominal pain. OBJECTIVE: Vital Signs Temperature 97.2 F L 09/30/17 14:32 Pulse Rate 65 09/30/17 12:00 Respiratory Rate 16 09/30/17 12:00 Blood Pressure 107/82 09/30/17 12:00 O2 Sat by Pulse Oximetry (%) 98 09/30/17 08:30 GENERAL: The patient is awake, alert, and fully oriented, in no acute distress. HEAD: Normal with no signs of trauma. NECK: Trachea midline, full range of motion, supple. LUNGS: Breath sounds equal, clear to auscultation bilaterally, no wheezes, no crackles, no accessory muscle use. HEART: Regular rate and rhythm, S1, S2 without murmur, rub or gallop. ABDOMEN: Soft, mild tenderness to palpation, nondistended, normoactive bowel sounds, no guarding, no rebound. EXTREMITIES: 2+ pulses, warm, well-perfused, no edema. NEUROLOGICAL: Cranial nerves II through X grossly intact. Normal speech, gait not observed. SKIN: Warm, dry, normal turgor, no rashes or lesions noted CBC, BMP 09/30/17 05:30 09/30/17 05:30 Active Medications Acetaminophen (Tylenol -) 650 mg PO Q4H PRN PRN Reason: PAIN 1-3 Aspirin (Ecotrin -) 81 mg PO DAILY [facility] Last Admin: 09/30/17 09:57 Dose: 81 mg Atorvastatin Calcium (Lipitor -) 40 mg PO HS [facility] Last Admin: 09/29/17 21:09 Dose: 40 mg Bisacodyl (Dulcolax Suppository -) 10 mg RC DAILY PRN PRN Reason: CONSTIPATION Last Admin: 09/25/17 10:57 Dose: 10 mg Clopidogrel Bisulfate (Plavix -) 75 mg PO DAILY [facility] Last Admin: 09/30/17 09:59 Dose: 75 mg Diphenhydramine HCl (Benadryl -) 25 mg PO ONCE PRN PRN Reason: INSOMNIA Last Admin: 09/28/17 21:02 Dose: 25 mg Furosemide (Lasix Injection -) 40 mg IVPUSH DAILY [facility] Isosorbide Mononitrate (Imdur -) 30 mg PO DAILY [facility] Last Admin: 09/30/17 09:58 Dose: 30 mg Levothyroxine Sodium (Synthroid Injection -) 37.5 mcg IVPUSH DAILY [facility] Last Admin: 09/30/17 09:45 Dose: 37.5 mcg Losartan Potassium (Cozaar -) 50 mg PO DAILY [facility] Last Admin: 09/30/17 09:54 Dose: 50 mg Methylnaltrexone [place] (Relistor -) 12 mg SQ DAILY [facility] Last Admin: 09/30/17 11:59 Dose: 12 mg Metoprolol Succinate (Toprol Xl -) 100 mg PO DAILY [facility] Last Admin: 09/30/17 10:00 Dose: 100 mg Miscellaneous (Lidoderm Patch Removal) 1 each MC ONCE@2200 ONE Stop: 09/30/17 22:01 Oxycodone HCl (Roxicodone -) 5 mg PO Q4H PRN PRN Reason: PAIN LEVEL 6-10 Last Admin: 09/30/17 15:18 Dose: 5 mg Pantoprazole Sodium (Protonix -) 40 mg PO DAILY [facility] Last Admin: 09/30/17 10:34 Dose: Not Given Polyethylene Glycol (Miralax (For Daily Use) -) 17 gm PO BID [facility] Last Admin: 09/30/17 09:58 Dose: 17 grams Potassium Phos/Sodium Phos (Phos-Nak Packet -) 1 packet PO TID [facility] Last Admin: 09/30/17 15:19 Dose: 1 packet Ranolazine (Ranexa -) 500 mg PO BID [facility] Last Admin: 09/30/17 10:00 Dose: 500 mg Spironolactone (Aldactone -) 50 mg PO DAILY [facility] Last Admin: 09/30/17 09:56 Dose: 50 mg ASSESSMENT/PLAN: The patient is an 87 yo F w/ pmhx of HTN, hypothyroidism, diverticulosis, melanoma, basal cell carcinoma, and hiatal hernia presented with 1 day h/o nausea and vomiting associated with abdominal pain. 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 T Wave inversions. -Aspirin 81 mg PO QD -Plavix 75 mg PO QD -Metoprolol succinate 100 mg PO QD -Ranexa 500 mg PO BID -Lasix 40 BID -Spironolactone 50 daily -Atorvastatin 40 qHS -Imdur 30 daily -repeat trops 2.53 --> 1.74 --> 0.87 -LDL 35 -f/u cardio recs -d/c tele #SBO; No BM last night. Multiple episodes of diarrhea reported yesterday. -hold Miralax, Dulcolax due to multiple episodes of diarrhea -Acetaminophen 650 mg PO Q4H/Oxycodone 5 mg PO Q4H for pain -Surgical and GI evaluation: s/p disimpaction, medical management currently; Surgical intervention not likely needed. -cont to monitor BM, serial abd exams -Methylnaltrexone [place] (Relistor) 12 mg SQ QD for opioid-induced constipation -stool cx: final results negative throughout #Leukocytosis w/ elevated lactate; WBC 11.0 today. Improved. -Pt is afebrile, WBC increased, but pt clinically asymptomatic. -Lactate has normalized. #Hypokalemia; K 3.3 today. -KPhos 1 packet TID -on LR -KDur given -recheck bmp in AM #hypoMg. Resolved. Mg 2.0 today. #MEL; Resolved. -gentle hydration with LR @75cc/hr -avoid nephrotoxic meds #HTN -hydralazine and diltiazem d/c'd -Losartan 50 daily -cont to monitor BP #Hypothyroidism -Levothyroxine 37.5 mcg IVP QD #DVT Ppx -Heparin drip d/c'd -SCD's #GI Ppx -Protonix 40 mg IVP QD #FEN -LR @ 75cc/hr -lytes repleted by ICU team. recheck lytes in AM -sodium-controlled diet dispo -full code Visit type - Emergency Visit Emergency Visit: Yes ED Registration Date: 09/24/17 Care time: The patient presented to the Emergency Department on the above date and was hospitalized for further evaluation of their emergent condition. - New Patient This patient is new to me today: No - Critical Care Critical Care patient: Yes Total Critical Care Time (in minutes): 35 Critical Care Statement: The care of this patient involved high complexity decision making to prevent further life threatening deterioration of the patient 's condition and/or to evaluate & treat vital organ system(s) failure or risk of failure.
[2017-09-30] MEDS ORDERED: diphenhydrAMINE HCL 25 MG CAPSULE (FP) PO ONE (19:30)
[2017-09-30] MEDS: ACETAMINOPHEN 325 MG TABLET (FP) PO PRN (19:45)
--- NOTE | 2017-09-30 19:47 | PN ---
Physical Exam: SUBJECTIVE: Patient seen and examined this am in icu. Sitting in chair, c/o lower back pain. No acute events noted overnight. Denies cp or sob. OBJECTIVE: Vital Signs Period Temp Pulse Resp BP Sys/Glass Pulse Ox Last 24 Hr 96.8 F-98.2 F 56-74 15-21 91-137/46-82 93-98 GENERAL: Pleasant, AAOx3. HEAD: NC/AT EYES: Glasses. EOMI. ENT: MMM NECK: Supple, No JVD LUNGS: Dec BS at bases HEART: RRR ABDOMEN: Tender abdomen EXTREMITIES: 2+ pulses, warm NEUROLOGICAL: No Neuro Deficits PSYCH: Normal mood, normal affect. SKIN: No rashes or lesions appreciated Laboratory Results - last 24 hr 09/30/17 09/30/17 09/30/17 05:30 05:30 05:30 WBC 11.0 H RBC 3.74 Hgb 11.4 Hct 33.3 MCV 89.2 MCH 30.4 MCHC 34.1 RDW 13.2 Plt Count 248 MPV 8.5 PTT (Actin FS) 42.4 H Sodium 140 Potassium 3.3 L Chloride 100 Carbon Dioxide 29 Anion Gap 11 BUN 10 Creatinine 0.5 L Creat Clearance w eGFR > 60 Random Glucose 119 H Calcium 8.4 L Phosphorus 2.7 Magnesium 2.0 Total Bilirubin 0.7 AST 19 ALT 20 Alkaline Phosphatase 44 L Total Protein 6.4 Albumin 3.0 L Triglycerides 121 Cholesterol 71 Total LDL Cholesterol 35 HDL Cholesterol 31 L Active Medications Generic Name Dose Route Start Last Admin Trade Name Freq PRN Reason Stop Dose Admin Acetaminophen 650 mg 09/30/17 19:17 Tylenol - PO Q4H PRN PAIN 1-3 Aspirin 81 mg 10/01/17 10:00 Ecotrin - PO DAILY JN Atorvastatin Calcium 40 mg 09/30/17 22:00 Lipitor - PO HS JN Clopidogrel Bisulfate 75 mg 10/01/17 10:00 Plavix - PO DAILY JN Furosemide 40 mg 10/01/17 10:00 Lasix Injection - IVPUSH DAILY JN Isosorbide Mononitrate 30 mg 10/01/17 10:00 Imdur - PO DAILY JN Levothyroxine Sodium 37.5 mcg 10/01/17 10:00 Synthroid Injection - IVPUSH DAILY JN Losartan Potassium 50 mg 10/01/17 10:00 Cozaar - PO DAILY JN Methylnaltrexone [place] 12 mg 10/01/17 10:00 Relistor - SQ DAILY [facility] Metoprolol Succinate 100 mg 10/01/17 10:00 Toprol Xl - PO DAILY [facility] Oxycodone HCl 5 mg 09/30/17 19:17 Roxicodone - PO Q4H PRN PAIN LEVEL 6-10 Pantoprazole Sodium 40 mg 10/01/17 10:00 Protonix - PO DAILY [facility] Potassium Phos/Sodium Phos 1 packet 09/30/17 22:00 Phos-Nak Packet - PO TID [facility] Ranolazine 500 mg 09/30/17 22:00 Ranexa - PO BID [facility] Spironolactone 50 mg 10/01/17 10:00 Aldactone - PO DAILY [facility] ASSESSMENT/PLAN: 87 y/o F w/PMH of HTN, hypothyroidism, diverticulosis, melanoma, basal cell ca, hiatal hernia presented to the ER w/N/V and abd pain. Found to have partial SBO. Cardio: NON ST Elevation M.I -Troponin---> 0.87 yesterday. -Morphine 1 mg IVPUSH Q4H PRN -Plavix 75 mg po daily - ASA 81 MG PO daily -Ranexa 500 mg po bid -Toprol XL 100 mg po daily -Cozaar 50 mg po daily -Furosemide 40 mg IVPUSH QD EKG 09/28/17---> EKG changes in lateral leads. T Wave inversions. EKG 09/29/17---> Rightward axis. Low Voltage QRS. Nonspecific T Wave abnormality. Echo 09/28---> Apical akinesis, EF 40%. RVSP elevated 50-60 mmhg Chest Xray 09/30--> Resolving vascular congestive changes. B/l pleural effusions w/ compressive atelectasis. G.I- Partial SBO-Resolved -Clear Liquid Diet -G.I on board -Pain Control-->Morphine Sulfate 1 mg IVPUSH Q4H PRN -ABX 09/26/17--> Decreasing small Bowel Air Distension. Porcelain Gallbladder. -GI evaluation for endoscopy -Relistor For opioid induced constipation. Hypothyroidism Levothyroxine 37.5 mcg IVPUSH FEN No Fluids Monitor Electrolytes Full Liquid DVT Ppx -Heparin drip d/c'd -SCD's Dispo: Transfer to Tele. Visit type - Emergency Visit Emergency Visit: Yes ED Registration Date: 09/24/17 Care time: The patient presented to the Emergency Department on the above date and was hospitalized for further evaluation of their emergent condition. - New Patient This patient is new to me today: No - Critical Care Critical Care patient: Yes Total Critical Care Time (in minutes): 35 Critical Care Statement: The care of this patient involved high complexity decision making to prevent further life threatening deterioration of the patient 's condition and/or to evaluate & treat vital organ system(s) failure or risk of failure.
[2017-09-30] MEDS: ATORVASTATIN CA 40 MG TABLET (FP) PO SCH (21:24)
[2017-09-30] MEDS ORDERED: LIDOCAINE PATCH REMOVAL MC ONE ×2 (22:00)
[2017-10-01] MEDS: NAPH,MB-DB/K PH,MBDB POWDER PACKET PO SCH ×3 (05:25→21:46)
[2017-10-01] MEDS: ACETAMINOPHEN 325 MG TABLET (FP) PO PRN ×5 (05:43→22:56)
[2017-10-01] MEDS: oxyCODONE HCL 5 MG TABLET PO PRN ×5 (05:44→18:43)
[2017-10-01 06:10] LABS: BASO % 0.9 % (0-2.0); EOS % 8.7 % (0-4.5); HEMOGLOBIN 11.7 GM/dL (10.7-15.3); LYMPH % 20.8 % (8-40); MCH 30.1 pg (25.7-33.7); MCHC 34.4 g/dl (32.0-36.0); MEAN CELL VOLUME 87.4 fl (80-96); MONO % 13.3 % (3.8-10.2); NEUT % 56.3 % (42.8-82.8); PLATELET COUNT 301 K/MM3 (134-434); RBC 3.89 M/mm3 (3.60-5.2); RDW 13.2 % (11.6-15.6); WHITE BLOOD COUNT 8.2 K/mm3 (4.0-10.0)
[2017-10-01 06:40] LABS: CHLORIDE 99 mmol/L (98-107); POTASSIUM 3.9 mmol/L (3.5-5.1); SODIUM 138 mmol/L (136-145)
[2017-10-01 06:50] LABS: ALK PHOS 47 U/L (45-117); ANION GAP 8 MMOL/L (8-16); BILIRUBIN,TOTAL 0.5 mg/dL (0.2-1.0); BLOOD UREA NITROGEN 13 mg/dL (7-18); CALCIUM 8.9 mg/dL (8.5-10.1); CO2 31 mmol/L (21-32); CREATININE 0.6 mg/dL (0.55-1.02); GLUCOSE,RANDOM 111 mg/dL (74-106); MAGNESIUM 1.9 mg/dL (1.8-2.4); PHOSPHOROUS 3.3 mg/dL (2.5-4.9); SGOT/AST 18 U/L (15-37); SGPT/ALT 21 U/L (12-78); TOT PROT 6.5 g/dl (6.4-8.2)
[2017-10-01] MEDS ORDERED: FUROSEMIDE 40 MG/4 ML INJECTABLE VIAL IVPUSH SCH ×2 (10:00)
[2017-10-01] MEDS ORDERED: oxyCODONE HCL 5 MG TABLET ONE ×2 (10:16→14:55)
[2017-10-01] MEDS ORDERED: ACETAMINOPHEN 325 MG TABLET (FP) ONE ×2 (10:17→14:55)
[2017-10-01] MEDS: SPIRONOLACTONE 25 MG TABLET (FP) PO SCH (10:18)
[2017-10-01] MEDS: PANTOPRAZOLE 40 MG TABLET (FP) PO SCH (10:18)
[2017-10-01] MEDS: ASPIRIN COATED 81 MG TABLET.EC PO SCH (10:19)
[2017-10-01] MEDS: CLOPIDOGREL BISULFATE 75 MG TABLET (FP) PO SCH (10:19)
[2017-10-01] MEDS: ISOSORBIDE MONONITRATE 30 MG TAB.SR.24H (FP) PO SCH (10:19)
[2017-10-01] MEDS: RANOLAZINE E.R. 500 MG TABLET (FP) PO SCH ×2 (10:19→21:47)
[2017-10-01] MEDS: LOSARTAN POTASSIUM 25 MG TABLET PO SCH (10:19)
--- NOTE | 2017-10-01 10:23 | PN ---
Progress Note, Physician History of Present Illness: Reports chest pain, dyspnea, orthopnea, improving with diuresis, reports chronic LBP pain. - Current Medication List Current Medications: Active Medications Acetaminophen (Tylenol -) 650 mg PO Q4H PRN PRN Reason: PAIN 1-3 Last Admin: 10/01/17 10:18 Dose: 650 mg Aspirin (Ecotrin -) 81 mg PO DAILY [facility] Last Admin: 10/01/17 10:19 Dose: 81 mg Atorvastatin Calcium (Lipitor -) 40 mg PO HS [facility] Last Admin: 09/30/17 21:24 Dose: 40 mg Clopidogrel Bisulfate (Plavix -) 75 mg PO DAILY [facility] Last Admin: 10/01/17 10:19 Dose: 75 mg Furosemide (Lasix Injection -) 40 mg IVPUSH DAILY [facility] Last Admin: 10/01/17 10:20 Dose: 40 mg Isosorbide Mononitrate (Imdur -) 30 mg PO DAILY [facility] Last Admin: 10/01/17 10:19 Dose: 30 mg Levothyroxine Sodium (Synthroid Injection -) 37.5 mcg IVPUSH DAILY [facility] Losartan Potassium (Cozaar -) 50 mg PO DAILY [facility] Last Admin: 10/01/17 10:19 Dose: 50 mg Methylnaltrexone [place] (Relistor -) 12 mg SQ DAILY [facility] Metoprolol Succinate (Toprol Xl -) 100 mg PO DAILY [facility] Last Admin: 10/01/17 10:19 Dose: 100 mg Oxycodone HCl (Roxicodone -) 5 mg PO Q4H PRN PRN Reason: PAIN LEVEL 6-10 Last Admin: 10/01/17 10:19 Dose: 5 mg Pantoprazole Sodium (Protonix -) 40 mg PO DAILY [facility] Last Admin: 10/01/17 10:18 Dose: 40 mg Potassium Phos/Sodium Phos (Phos-Nak Packet -) 1 packet PO TID [facility] Last Admin: 10/01/17 05:25 Dose: 1 packet Ranolazine (Ranexa -) 500 mg PO BID [facility] Last Admin: 10/01/17 10:19 Dose: 500 mg Spironolactone (Aldactone -) 50 mg PO DAILY [facility] Last Admin: 10/01/17 10:18 Dose: 50 mg - Objective Vital Signs: Vital Signs Temperature 98.2 F 10/01/17 06:00 Pulse Rate 80 10/01/17 08:00 Respiratory Rate 18 10/01/17 08:00 Blood Pressure 126/77 10/01/17 08:00 O2 Sat by Pulse Oximetry (%) 98 09/30/17 20:00 Constitutional: Yes: No Distress, Calm, Thin Neck: Yes: Supple Cardiovascular: Yes: Regular Rate and Rhythm Respiratory: Yes: Regular, Diminished Gastrointestinal: Yes: Normal Bowel Sounds, Soft Edema: No Labs: CBC, BMP 10/01/17 05:30 10/01/17 05:30 Problem List - Problems (1) Acute SD anterior wall subsequent episode care Code(s): I21.09 - STEMI INVOLVING OTH CORONARY ARTERY OF ANTERIOR WALL (2) Acute on chronic systolic and diastolic heart failure, NYHA class 3 Code(s): I50.43 - ACUTE ON CHRONIC COMBINED SYSTOLIC AND DIASTOLIC HRT FAIL (3) Hypertension Code(s): I10 - ESSENTIAL (PRIMARY) HYPERTENSION Qualifiers: Hypertension type: essential hypertension Qualified Code(s): I10 - Essential (primary) hypertension (4) Hypothyroidism Code(s): E03.9 - HYPOTHYROIDISM, UNSPECIFIED Qualifiers: Hypothyroidism type: unspecified Qualified Code(s): E03.9 - Hypothyroidism , unspecified (5) Small bowel obstruction Code(s): K56.609 - UNSP INTESTNL OBST, UNSP TO PARTIAL VERSUS COMPLETE OBST Assessment/Plan Echocardiography performed September 28, 2017 Normal LV size with moderately decreased LVEF 40% and apical akinesis, mild MR, TR, tr AT, RVSP 50-60 mmHg Left heart cardiac catheterization coronary angiography performed October 19, 2013 revealed normal left ventricular systolic function with estimated left ventricular ejection fraction of 60%, 70% LAD-D1 lesion for medical management. Carotid Doppler study performed May 25, 2013 revealed mild degree of atherosclerotic plaque bilaterally with no evidence of hemodynamically significant stenosis. Echocardiography performed May 25, 2013 revealed overall preserved left ventricular systolic function, mitral annular calcification, aortic valve leaflet sclerosis, left atrial dilatation measuring 4.3 cm, mild mitral and tricuspid valve regurgitation with calculated RVSP of 39 mmHg. Pharmacologic (Dipyridamole) myocardial perfusion imaging study performed June 06, 2013 revealed moderate size inferior wall defect compatible with mild ischemia with normal left ventricular contraction pattern on LV gated analysis with calculated left ventricular ejection fraction of 88%. 1. Coronary artery disease post evolving anterior wall non-ST segment elevation myocardial infarction vs Takutsubo apical ballooning syndrome 2. Acute on chronic diastolic/systolic heart failure improving 3. Hypertensive cardiovascular disease labile blood pressure. 4. Hypercholesterolemia with prior history of statin therapy administration intolerance. 5. Abnormal hemoglobin A1C. 6. Carotid stenosis mild in severity, asymptomatic. 7. Hypothyroidism. 8. Resolved small bowel obstruction. 9. History of degenerative joint disease with chronic pain syndrome. 10. History of anxiety disorder. PLAN: 1. Continue Toprol-XL 100 qd, Imdur 30 qd, Ranexa 500 bid 2. Change to oral diuresis and spirinolactone 50 qd with monitor diuretic response, renal fxn and electrolytes, replete K 3. Increase losartan 50 qd with uptitration as tolerated, maintained on Lipitor 40 qd as tolerated 4. Continuation of Aspirin 81 qd, Plavix 75 qd and d/c Heparin therapy, trops have peaked. 5. Considering patient's advanced age, comorbidities and current presentation would recommend conservative medical management unless symptoms persist and/or progress. 6. PT->SNF as tolerated
[2017-10-01 10:50] LABS: ACANTHOCYTES 0; ANISOCYTOSIS 0; HELMET CELLS 0; HOWELL-JOLLY BODIES 0; MACROCYTOSIS 0; OVALOCYTE 0; PLATELET ESTIMATE NORMAL; ROULEAU 0; SICKELED CELLS 0; TARGET CELLS 0; TEAR DROP CELLS 0; TOXIC GRANULATION 0
--- NOTE | 2017-10-01 11:14 | PN ---
Progress Note, Physician - Current Medication List Current Medications: Active Medications Acetaminophen (Tylenol -) 650 mg PO Q4H PRN PRN Reason: PAIN 1-3 Last Admin: 10/01/17 10:18 Dose: 650 mg Aspirin (Ecotrin -) 81 mg PO DAILY [facility] Last Admin: 10/01/17 10:19 Dose: 81 mg Atorvastatin Calcium (Lipitor -) 40 mg PO HS [facility] Last Admin: 09/30/17 21:24 Dose: 40 mg Clopidogrel Bisulfate (Plavix -) 75 mg PO DAILY [facility] Last Admin: 10/01/17 10:19 Dose: 75 mg Furosemide (Lasix Injection -) 40 mg IVPUSH DAILY [facility] Last Admin: 10/01/17 10:20 Dose: 40 mg Isosorbide Mononitrate (Imdur -) 30 mg PO DAILY [facility] Last Admin: 10/01/17 10:19 Dose: 30 mg Levothyroxine Sodium (Synthroid Injection -) 37.5 mcg IVPUSH DAILY [facility] Losartan Potassium (Cozaar -) 50 mg PO DAILY [facility] Last Admin: 10/01/17 10:19 Dose: 50 mg Methylnaltrexone [place] (Relistor -) 12 mg SQ DAILY [facility] Metoprolol Succinate (Toprol Xl -) 100 mg PO DAILY [facility] Last Admin: 10/01/17 10:19 Dose: 100 mg Oxycodone HCl (Roxicodone -) 5 mg PO Q4H PRN PRN Reason: PAIN LEVEL 6-10 Last Admin: 10/01/17 10:19 Dose: 5 mg Pantoprazole Sodium (Protonix -) 40 mg PO DAILY [facility] Last Admin: 10/01/17 10:18 Dose: 40 mg Potassium Phos/Sodium Phos (Phos-Nak Packet -) 1 packet PO TID [facility] Last Admin: 10/01/17 05:25 Dose: 1 packet Ranolazine (Ranexa -) 500 mg PO BID [facility] Last Admin: 10/01/17 10:19 Dose: 500 mg Spironolactone (Aldactone -) 50 mg PO DAILY [facility] Last Admin: 10/01/17 10:18 Dose: 50 mg - Objective Vital Signs: Vital Signs Temperature 98.2 F 10/01/17 06:00 Pulse Rate 74 10/01/17 10:25 Respiratory Rate 20 10/01/17 10:29 Blood Pressure 150/97 10/01/17 10:25 O2 Sat by Pulse Oximetry (%) 98 10/01/17 10:29 Cardiovascular: Yes: S1, S2 Respiratory: Yes: Regular, CTA Bilaterally Gastrointestinal: Yes: Normal Bowel Sounds, Soft Labs: CBC, BMP 10/01/17 05:30 10/01/17 05:30 Problem List - Problems (1) Non-ST elevation MT (NSTEMI) Assessment/Plan: - cont diuresis - cont imdur, ranexa, and BB - cont asa and plavix - losartan with titration - LDL 35 , cont statin 40 mg Code(s): I21.4 - NON-ST ELEVATION (NSTEMI) MYOCARDIAL INFARCTION (2) CHF (congestive heart failure) Assessment/Plan: -IV Diuretics -after MT. EF 40 %. - spironolactone - ARB. Code(s): I50.9 - HEART FAILURE, UNSPECIFIED (3) Hypertension Assessment/Plan: -Monitor BP Code(s): I10 - ESSENTIAL (PRIMARY) HYPERTENSION Qualifiers: Hypertension type: essential hypertension Qualified Code(s): I10 - Essential (primary) hypertension (4) Small bowel obstruction Assessment/Plan: - cont current diet - monitor bowel movement . hold miralax due to diarrhea Code(s): K56.609 - UNSP INTESTNL OBST, UNSP TO PARTIAL VERSUS COMPLETE OBST
[2017-10-01] MEDS: LEVOTHYROXINE SODIUM 100 MCG VIAL IVPUSH SCH (12:22)
--- NOTE | 2017-10-01 12:48 | PN ---
Progress Note (short form) - Note Progress Note: PULMONARY HOSPITAL DAY #7 OOB TO CHAIR APPEARS STABLE HAS DIFFUSE NONSPECIFIC JOINT ACHES VSS/AFEBRILE/PALE ANICTERIC CLEAR NO RALES S1S2 RSR BS+ MILDLY DISTENDED NO EDEMA LABS/MEDS/NOTES/IMAGES REVIEWED SBO RESOLVING ACUTE ANTERIOR WALL GA LVDD/LVD CHF S/P B/L THR CHROIC PAIN SYNDROME OPIOID DEPENDANCE HTN AGREE WITH CURRENT PLAN PER PRIMARY TEAM/CARDIO WILL DISCUSS POSSIBLE FURTHER W/U OUTPATIENT FOR CAD WITH CARDIO King HEWITT MD Problem List - Problems (1) Hypertension Code(s): I10 - ESSENTIAL (PRIMARY) HYPERTENSION Qualifiers: Hypertension type: essential hypertension Qualified Code(s): I10 - Essential (primary) hypertension (2) Abdominal pain Code(s): R10.9 - UNSPECIFIED ABDOMINAL PAIN Qualifiers: Abdominal location: generalized Qualified Code(s): R10.84 - Generalized abdominal pain (3) Small bowel obstruction Code(s): K56.609 - UNSP INTESTNL OBST, UNSP TO PARTIAL VERSUS COMPLETE OBST (4) Hypothyroidism Code(s): E03.9 - HYPOTHYROIDISM, UNSPECIFIED Qualifiers: Hypothyroidism type: unspecified Qualified Code(s): E03.9 - Hypothyroidism , unspecified
[2017-10-01 14:20] VITALS: BMI 29.2
[2017-10-01] MEDS: Methylnaltrexone Bromide 12 MG/0.6 ML KIT SQ SCH (18:44)
[2017-10-01] MEDS: ATORVASTATIN CA 40 MG TABLET (FP) PO SCH (21:47)
[2017-10-02] MEDS ORDERED: MORPHINE SULFATE 2 MG/ML VIAL IVPUSH ONE (00:17)
[2017-10-02] MEDS ORDERED: morphine CARPU-JECT 2 MG/1 ML DISP.SYRIN IVPUSH ONE ×2 (00:17→00:24)
[2017-10-02] MEDS ORDERED: morphine SULFATE 4 MG/ML VIAL ONE (00:20)
[2017-10-02] MEDS ORDERED: METOCLOPRAMIDE HCL INJECTION 10 MG/2 ML VIAL IVPUSH ONE (00:36)
--- NOTE | 2017-10-02 01:13 | HOSP ---
Subjective - Review of Symptoms Events since last encounter: Called by RN who reports pt c/o chest pain. Subjective: Pt reports chest pain x 1-2 hours. It began as left upper back pain at the site of former shingles and then spread across her chest. She reports that the pain is similar to when she had her "heart attack" a few days ago. She reports some SOB/nausea at the time. Pain is now relieved after receiving morphine 2mg. Physical Examination Vital Signs: Vital Signs Temperature 99.5 F 10/01/17 20:00 Pulse Rate 71 10/02/17 00:00 Respiratory Rate 15 10/02/17 00:00 Blood Pressure 140/78 10/02/17 00:00 O2 Sat by Pulse Oximetry (%) 98 10/01/17 20:56 Constitutional: Yes: No Distress, Calm Cardiovascular: Yes: Regular Rate and Rhythm, S1, S2 Respiratory: Yes: CTA Bilaterally Gastrointestinal: Yes: Normal Bowel Sounds, Soft Extremities: Yes: Other (left inner forearm IV site with erythema, mild induration) Labs: CBC, BMP 10/01/17 05:30 10/01/17 05:30 EKG NSR Vent rate 76, QTC 420 T wave inversions still present V3-V6, but not as deep, biphasic in V2 still T wave inversions lead 2, 3,aVF unchanged Hospitalist Encounter Assessment: chest pain - in setting of recent EKG changes and troponin peaking at 2.53, trended down to 0.87 - EKG with no significant changes when compared with ECG 09/28 - troponin stat, trend x 2 more - PCP and cardiology to f/u tomorrow IV site infiltrated - removed, warm compress applied - New saline lock placed by , #20g left dorsal/medial hand, 1st attempt, good blood return, saline infused freely, secured in place with tegaderm and tape.
[2017-10-02] MEDS: oxyCODONE HCL 5 MG TABLET PO PRN ×2 (05:46→14:25)
[2017-10-02] MEDS: NAPH,MB-DB/K PH,MBDB POWDER PACKET PO SCH ×3 (05:46→21:46)
--- NOTE | 2017-10-02 07:03 | PN ---
Progress Note (short form) - Note Progress Note: Chief complaint: Events noted, notes reviewed, had chest discomfort last night, currently denies any chest discomfort denies any abdominal discomfort, requesting to be D/C home History of Present Illness: Seen and examined on telemetry. Events noted, notes reviewed, had chest discomfort last night, currently denies any chest discomfort denies any abdominal discomfort, requesting to be D/C home Echocardiography dated September 28, 2017 revealed normal LV size with moderately decreased LVEF 40% and apical akinesis, mild MR, TR, trace AI, RVSP 50-60 mmHg Left heart cardiac catheterization coronary angiography performed October 19, 2013 revealed normal left ventricular systolic function with estimated left ventricular ejection fraction of 60%, 70% LAD-D1 lesion for medical management. Carotid Doppler study performed May 25, 2013 revealed mild degree of atherosclerotic plaque bilaterally with no evidence of hemodynamically significant stenosis. Echocardiography performed May 25, 2013 revealed overall preserved left ventricular systolic function, mitral annular calcification, aortic valve leaflet sclerosis, left atrial dilatation measuring 4.3 cm, mild mitral and tricuspid valve regurgitation with calculated RVSP of 39 mmHg. Pharmacologic (Dipyridamole) myocardial perfusion imaging study performed June 06, 2013 revealed moderate size inferior wall defect compatible with mild ischemia with normal left ventricular contraction pattern on LV gated analysis with calculated left ventricular ejection fraction of 88%. Allergies: Intolerance to codeine and Demerol. Medical therapy currently includes: Current Medications Acetaminophen (Tylenol -) 650 mg PO Q4H PRN PRN Reason: PAIN 1-3 Last Admin: 10/01/17 22:56 Dose: 650 mg Aspirin (Ecotrin -) 81 mg PO DAILY [facility] Last Admin: 10/01/17 10:19 Dose: 81 mg Atorvastatin Calcium (Lipitor -) 40 mg PO HS [facility] Last Admin: 10/01/17 21:47 Dose: 40 mg Clopidogrel Bisulfate (Plavix -) 75 mg PO DAILY [facility] Last Admin: 10/01/17 10:19 Dose: 75 mg Furosemide (Lasix Injection -) 40 mg IVPUSH DAILY [facility] Last Admin: 10/01/17 10:20 Dose: 40 mg Isosorbide Mononitrate (Imdur -) 30 mg PO DAILY [facility] Last Admin: 10/01/17 10:19 Dose: 30 mg Levothyroxine Sodium (Synthroid Injection -) 37.5 mcg IVPUSH DAILY [facility] Last Admin: 10/01/17 12:22 Dose: 37.5 mcg Losartan Potassium (Cozaar -) 50 mg PO DAILY [facility] Last Admin: 10/01/17 10:19 Dose: 50 mg Methylnaltrexone [place] (Relistor -) 12 mg SQ DAILY [facility] Last Admin: 10/01/17 18:44 Dose: Not Given Metoprolol Succinate (Toprol Xl -) 100 mg PO DAILY [facility] Last Admin: 10/01/17 10:19 Dose: 100 mg Oxycodone HCl (Roxicodone -) 15 mg PO Q8H PRN PRN Reason: PAIN SCALE 6-10 Last Admin: 10/02/17 05:46 Dose: 15 mg Pantoprazole Sodium (Protonix -) 40 mg PO DAILY [facility] Last Admin: 10/01/17 10:18 Dose: 40 mg Potassium Phos/Sodium Phos (Phos-Nak Packet -) 1 packet PO TID [facility] Last Admin: 10/02/17 05:46 Dose: 1 packet Ranolazine (Ranexa -) 500 mg PO BID [facility] Last Admin: 10/01/17 21:47 Dose: 500 mg Spironolactone (Aldactone -) 50 mg PO DAILY [facility] Last Admin: 10/01/17 10:18 Dose: 50 mg Review of Systems: Constitutional: Denies fever, chills or weight loss Head and Neck: Denies headache, photophobia or blurring of vision Respiratory: Denies cough or sputum production Cardiovascular: As noted above Gastrointestinal: Denies nausea, vomiting, diarrhea, constipation or abdominal discomfort Genitourinary: Denies frequency, urgency or hesitancy Musculoskeletal: Persistent left hip discomfort Endocrine: Hypothyroidism Physical Examination: Vital Signs: Last Vital Signs Temp Pulse Resp BP Pulse Ox 98.3 F 69 15 139/77 98 10/02/17 06:00 10/02/17 06:00 10/02/17 06:00 10/02/17 06:00 10/01/17 20:56 Intake & Output 09/29/17 09/30/17 10/01/17 10/02/17 23:59 23:59 23:59 23:59 Intake Total 3657 800 560 150 Output Total 2750 1 Balance 907 799 560 150 Weight 164 lb 8 oz 165 lb 3.2 oz Neck: Supple negative JVD no bruit appreciated Heart: S1 and S2 regular no murmurs clicks or gallops Lungs: Diminished Breath Sounds at the Bases Abdomen: Soft benign normoactive bowel sounds no organomegaly Extremities: Negative edema 2+ distal pulses no calf tenderness Lab Data: Troponin, BNP 10/02/17 10/02/17 01:00 05:30 Troponin I 0.19 H 0.20 H CBC, BMP 10/01/17 05:30 10/01/17 05:30 Hepatic Panel Total Bilirubin 0.5 mg/dL (0.2-1.0) 10/01/17 05:30 AST 18 U/L (15-37) 10/01/17 05:30 ALT 21 U/L (12-78) 10/01/17 05:30 Alkaline Phosphatase 47 U/L (45-117) 10/01/17 05:30 Albumin 3.0 g/dl (3.4-5.0) L 10/01/17 05:30 ASSESSMENT: 1. Coronary artery disease post recent anterior wall non-ST segment elevation myocardial infarction versus Takutsubo apical ballooning syndrome angina pectoris (Troponin I noted). 2. Systolic/diastolic left ventricular dysfunction with clinical class I-II [place] [employer] classification left ventricular failure, clinically resolving. 3. Mitral valve regurgitation mild in severity of no clinical significance. 4. Tricuspid valve regurgitation mild in severity with RVSP between 50-60 mmHg on echocardiography performed September 28, 2017. 5. Hypertensive cardiovascular disease labile blood pressure. 6. Hypercholesterolemia. 7. Abnormal hemoglobin A1C. 8. Carotid stenosis mild in severity, asymptomatic. 9. Hypothyroidism. 10. Post small bowel obstruction. 11. History of degenerative joint disease with chronic pain syndrome. 12. History of anxiety disorder. PLAN: 1. Continue Toprol-XL therapy. 2. Continue Losartan therapy. 3. Continue Nitrates and Ranexa with caution. 4. Continue Lipitor. 5. Continuation of Aspirin and Plavix with caution. 6. Continue Lasix but switch to PO and continue Aldactone. 7. As outlined in prior notes considering patient's advanced age, comorbidities and current presentation would recommend conservative medical management unless symptoms persist and/or progress. Jose Goldstein M.D.
[2017-10-02] MEDS ORDERED: PT OWN MED DRAWER 7, Y5N ONE ×2 (09:18→21:55)
[2017-10-02] MEDS: LOSARTAN POTASSIUM 25 MG TABLET PO SCH (09:28)
[2017-10-02] MEDS: FUROSEMIDE 40 MG TABLET (FP) PO SCH (09:29)
[2017-10-02] MEDS: ASPIRIN COATED 81 MG TABLET.EC PO SCH (09:29)
[2017-10-02] MEDS: CLOPIDOGREL BISULFATE 75 MG TABLET (FP) PO SCH (09:29)
[2017-10-02] MEDS: Methylnaltrexone Bromide 12 MG/0.6 ML KIT SQ SCH (09:30)
[2017-10-02] MEDS: SPIRONOLACTONE 25 MG TABLET (FP) PO SCH (09:34)
[2017-10-02] MEDS: PANTOPRAZOLE 40 MG TABLET (FP) PO SCH (09:34)
[2017-10-02] MEDS: RANOLAZINE E.R. 500 MG TABLET (FP) PO SCH ×2 (09:34→22:30)
[2017-10-02] MEDS: ISOSORBIDE MONONITRATE 30 MG TAB.SR.24H (FP) PO SCH (09:39)
--- NOTE | 2017-10-02 12:26 | PN ---
Progress Note, Physician History of Present Illness: PULMONARY ALERT,OOB-CHAIR FEELING BETTER,HAD CP LAST NIGHT RESOLVED,-SOB. -ABD PAIN, TOLERATING PO - Current Medication List Current Medications: Active Medications Acetaminophen (Tylenol -) 650 mg PO Q4H PRN PRN Reason: PAIN 1-3 Last Admin: 10/01/17 22:56 Dose: 650 mg Aspirin (Ecotrin -) 81 mg PO DAILY [facility] Last Admin: 10/02/17 09:29 Dose: 81 mg Atorvastatin Calcium (Lipitor -) 40 mg PO HS [facility] Last Admin: 10/01/17 21:47 Dose: 40 mg Clopidogrel Bisulfate (Plavix -) 75 mg PO DAILY [facility] Last Admin: 10/02/17 09:29 Dose: 75 mg Furosemide (Lasix -) 40 mg PO DAILY [facility] Last Admin: 10/02/17 09:29 Dose: 40 mg Isosorbide Mononitrate (Imdur -) 30 mg PO DAILY [facility] Last Admin: 10/02/17 09:39 Dose: 30 mg Levothyroxine Sodium (Synthroid Injection -) 37.5 mcg IVPUSH DAILY [facility] Last Admin: 10/01/17 12:22 Dose: 37.5 mcg Losartan Potassium (Cozaar -) 50 mg PO DAILY [facility] Last Admin: 10/02/17 09:28 Dose: 50 mg Methylnaltrexone [place] (Relistor -) 12 mg SQ DAILY [facility] Last Admin: 10/02/17 09:30 Dose: 12 mg Metoprolol Succinate (Toprol Xl -) 100 mg PO DAILY [facility] Last Admin: 10/02/17 09:29 Dose: 100 mg Oxycodone HCl (Roxicodone -) 15 mg PO Q8H PRN PRN Reason: PAIN SCALE 6-10 Last Admin: 10/02/17 05:46 Dose: 15 mg Pantoprazole Sodium (Protonix -) 40 mg PO DAILY [facility] Last Admin: 10/02/17 09:34 Dose: 40 mg Potassium Phos/Sodium Phos (Phos-Nak Packet -) 1 packet PO TID [facility] Last Admin: 10/02/17 05:46 Dose: 1 packet Ranolazine (Ranexa -) 500 mg PO BID [facility] Last Admin: 10/02/17 09:34 Dose: 500 mg Spironolactone (Aldactone -) 50 mg PO DAILY [facility] Last Admin: 10/02/17 09:34 Dose: 50 mg - Objective Vital Signs: Vital Signs Temperature 98.4 F 10/02/17 08:00 Pulse Rate 68 10/02/17 10:00 Respiratory Rate 16 10/02/17 10:00 Blood Pressure 135/58 10/02/17 10:00 O2 Sat by Pulse Oximetry (%) 98 10/02/17 07:40 Constitutional: Yes: Well Nourished, Calm Eyes: Yes: WNL HENT: Yes: WNL Neck: Yes: WNL Cardiovascular: Yes: Regular Rate and Rhythm, S1 Respiratory: Yes: Rales (BIBASILAR CRACKLLES) Gastrointestinal: Yes: Normal Bowel Sounds, Soft Extremities: Yes: WNL Edema: No Labs: CBC, BMP 10/01/17 05:30 10/01/17 05:30 Problem List - Problems (1) Pulmonary hypertension Code(s): I27.20 - PULMONARY HYPERTENSION, UNSPECIFIED (2) Abdominal pain Code(s): R10.9 - UNSPECIFIED ABDOMINAL PAIN Qualifiers: Abdominal location: generalized Qualified Code(s): R10.84 - Generalized abdominal pain (3) Acute [place] anterior wall subsequent episode care Code(s): I21.09 - STEMI INVOLVING OTH CORONARY ARTERY OF ANTERIOR WALL (4) CHF (congestive heart failure) Code(s): I50.9 - HEART FAILURE, UNSPECIFIED (5) Constipation due to opioid therapy Code(s): K59.03 - DRUG INDUCED CONSTIPATION; T40.2X5A - ADVERSE EFFECT OF OTHER OPIOIDS, INITIAL ENCOUNTER (6) Non-ST elevation [place] (NSTEMI) Code(s): I21.4 - NON-ST ELEVATION (NSTEMI) MYOCARDIAL INFARCTION (7) Small bowel obstruction Code(s): K56.609 - UNSP INTESTNL OBST, UNSP TO PARTIAL VERSUS COMPLETE OBST (8) ACS (acute coronary syndrome) Code(s): I24.9 - ACUTE ISCHEMIC HEART DISEASE, UNSPECIFIED (9) Acute on chronic systolic and diastolic heart failure, NYHA class 3 Code(s): I50.43 - ACUTE ON CHRONIC COMBINED SYSTOLIC AND DIASTOLIC HRT FAIL (10) Hypertension Code(s): I10 - ESSENTIAL (PRIMARY) HYPERTENSION Qualifiers: Hypertension type: essential hypertension Qualified Code(s): I10 - Essential (primary) hypertension Assessment/Plan ASSESSMENT AND PLAN: Partial Small Bowel Obstruction resolved Acute NSTEMI Acute Systolic Heart Failure Pulmonary HTN Opiate Dependence Fecal Impaction Diverticulosis Lactic Acidosis HTN Hypothyroidism - ASA, plavix - beta felix, statin - lasix - monitor urine output, creatinine - pain control - bowel regimen - PO as tolerated - continue relistor - s/p empiric antibiotics - DVT prophylaxis DR ELLIOTT
[2017-10-02] MEDS: LEVOTHYROXINE SODIUM 100 MCG VIAL IVPUSH SCH (13:37)
[2017-10-02] MEDS: ACETAMINOPHEN 325 MG TABLET (FP) PO PRN ×2 (17:23→21:46)
--- NOTE | 2017-10-02 17:39 | PN ---
Progress Note, Physician Chief Complaint: AWAKE ALERT EVENTS AND NOTES REVIEWED C/O ARTHRITIC PAIN AND MUSCLE ACHES - Current Medication List Current Medications: Active Medications Acetaminophen (Tylenol -) 650 mg PO Q4H PRN PRN Reason: PAIN 1-3 Last Admin: 10/02/17 17:23 Dose: 650 mg Aspirin (Ecotrin -) 81 mg PO DAILY [facility] Last Admin: 10/02/17 09:29 Dose: 81 mg Atorvastatin Calcium (Lipitor -) 40 mg PO HS [facility] Last Admin: 10/01/17 21:47 Dose: 40 mg Clopidogrel Bisulfate (Plavix -) 75 mg PO DAILY [facility] Last Admin: 10/02/17 09:29 Dose: 75 mg Furosemide (Lasix -) 40 mg PO DAILY [facility] Last Admin: 10/02/17 09:29 Dose: 40 mg Isosorbide Mononitrate (Imdur -) 30 mg PO DAILY [facility] Last Admin: 10/02/17 09:39 Dose: 30 mg Levothyroxine Sodium (Synthroid Injection -) 37.5 mcg IVPUSH DAILY [facility] Last Admin: 10/02/17 13:37 Dose: Not Given Losartan Potassium (Cozaar -) 50 mg PO DAILY [facility] Last Admin: 10/02/17 09:28 Dose: 50 mg Methylnaltrexone [place] (Relistor -) 12 mg SQ DAILY [facility] Last Admin: 10/02/17 09:30 Dose: 12 mg Metoprolol Succinate (Toprol Xl -) 100 mg PO DAILY [facility] Last Admin: 10/02/17 09:29 Dose: 100 mg Oxycodone HCl (Roxicodone -) 15 mg PO Q8H PRN PRN Reason: PAIN SCALE 6-10 Last Admin: 10/02/17 14:25 Dose: 15 mg Pantoprazole Sodium (Protonix -) 40 mg PO DAILY [facility] Last Admin: 10/02/17 09:34 Dose: 40 mg Potassium Phos/Sodium Phos (Phos-Nak Packet -) 1 packet PO TID [facility] Last Admin: 10/02/17 13:34 Dose: 1 packet Ranolazine (Ranexa -) 500 mg PO BID [facility] Last Admin: 10/02/17 09:34 Dose: 500 mg Spironolactone (Aldactone -) 50 mg PO DAILY [facility] Last Admin: 10/02/17 09:34 Dose: 50 mg - Objective Vital Signs: Vital Signs Temperature 98.3 F 10/02/17 13:53 Pulse Rate 72 10/02/17 13:53 Respiratory Rate 16 10/02/17 13:53 Blood Pressure 125/67 10/02/17 13:53 O2 Sat by Pulse Oximetry (%) 98 10/02/17 09:00 Constitutional: Yes: Mild Distress Eyes: Yes: WNL HENT: Yes: WNL Neck: Yes: WNL Cardiovascular: Yes: WNL Respiratory: Yes: WNL Gastrointestinal: Yes: WNL Genitourinary: Yes: Incontinence Musculoskeletal: Yes: Back Pain, Muscle Weakness Extremities: Yes: WNL Edema: Yes Edema: LLE: Trace, RLE: Trace Peripheral Pulses WNL: Yes Integumentary: Yes: Bruising, Venous Stasis Changes Wound/Incision: Yes: Clean/Dry Neurological: Yes: Pre-Existing Deficit ...Motor Strength: LLE, RLE Psychiatric: Yes: Other Labs: CBC, BMP 10/01/17 05:30 10/01/17 05:30 Problem List - Problems (1) Abdominal pain Code(s): R10.9 - UNSPECIFIED ABDOMINAL PAIN Qualifiers: Abdominal location: generalized Qualified Code(s): R10.84 - Generalized abdominal pain (2) Acute [place] anterior wall subsequent episode care Code(s): I21.09 - STEMI INVOLVING OTH CORONARY ARTERY OF ANTERIOR WALL (3) Acute on chronic systolic and diastolic heart failure, NYHA class 3 Code(s): I50.43 - ACUTE ON CHRONIC COMBINED SYSTOLIC AND DIASTOLIC HRT FAIL (4) Constipation due to opioid therapy Code(s): K59.03 - DRUG INDUCED CONSTIPATION; T40.2X5A - ADVERSE EFFECT OF OTHER OPIOIDS, INITIAL ENCOUNTER (5) Hypertension Code(s): I10 - ESSENTIAL (PRIMARY) HYPERTENSION Qualifiers: Hypertension type: essential hypertension Qualified Code(s): I10 - Essential (primary) hypertension (6) Non-ST elevation [place] (NSTEMI) Code(s): I21.4 - NON-ST ELEVATION (NSTEMI) MYOCARDIAL INFARCTION Assessment/Plan MONITOR ON TELEMETRY LDL CONTROL GOAL <70 ASA/PLAVIX PT EVAL PAIN CONTROL RELISTOR FOR OPIOD BOWEL CARDIOLOGY EVAL
--- NOTE | 2017-10-02 18:00 | PN ---
Progress Note (short form) - Note Progress Note: Patient seen and examined. Patient known to me from outpatient visits. She has been on long standing oxycodone (short acting) for approximately 20years. SHe has failed numerous other meds- including long acting opioids such as oxycontin in the past. She feels that the oxycodone is the only medication that helps. I will have to review my office notes to see the dosage she was being prescribed as I do not remember right now. Currently she is taking oxycodone 15mg po q8h prn pain. She feels she needs further opioids especially at night. She states her pain is diffuse - "is everywhere" A: Chronic pain syndrome Opioid dependence P: 1. at this point she will probably have to be maintained on some opioid regimen. i would prefer no further escalation of opioids. Please supplement her pain management with: 1. non opioids such as tylenol, lidocaine patches 2. consider physical therapy- if no contraindications for TENS/ultrasound, etc which may help with some of her pain
--- NOTE | 2017-10-02 19:06 | EKG ---
Test Reason : Blood Pressure : / mmHG Vent. Rate : 076 BPM Atrial Rate : 076 BPM P-R Int : 158 ms QRS Dur : 080 ms QT Int : 374 ms P-R-T Axes : 072 006 -10 degrees QTc Int : 420 ms POOR DATA QUALITY, INTERPRETATION MAY BE ADVERSELY AFFECTED NORMAL SINUS RHYTHM T WAVE ABNORMALITY, CONSIDER ANTEROLATERAL ISCHEMIA ABNORMAL ECG WHEN COMPARED WITH ECG OF 29-SEP-2017 07:52, QUESTIONABLE CHANGE IN QRS AXIS T WAVE INVERSION NOW EVIDENT IN ANTERIOR LEADS Confirmed by QUINTEN SÁNCHEZ MD ([id number]) on 10/02/2017 7:06:29 PM Referred By: Confirmed By:QUINTEN SÁNCHEZ MD
[2017-10-02] MEDS: ATORVASTATIN CA 40 MG TABLET (FP) PO SCH (21:46)
[2017-10-03] MEDS: oxyCODONE HCL 5 MG TABLET PO PRN ×3 (02:20→17:09)
[2017-10-03 05:57] LABS: HEMOGLOBIN 12.6 GM/dL (10.7-15.3); MCH 29.7 pg (25.7-33.7); MCHC 33.2 g/dl (32.0-36.0); MEAN CELL VOLUME 89.4 fl (80-96); MEAN PLT VOLUME 8.2 fl (7.5-11.1); PLATELET COUNT 344 K/MM3 (134-434); RBC 4.25 M/mm3 (3.60-5.2); RDW 13.4 % (11.6-15.6); WHITE BLOOD COUNT 7.7 K/mm3 (4.0-10.0)
[2017-10-03] MEDS: ACETAMINOPHEN 325 MG TABLET (FP) PO PRN ×2 (06:12→15:55)
[2017-10-03] MEDS: NAPH,MB-DB/K PH,MBDB POWDER PACKET PO SCH ×3 (06:13→21:19)
[2017-10-03 06:17] LABS: ANION GAP 6 MMOL/L (8-16); BLOOD UREA NITROGEN 15 mg/dL (7-18); CALCIUM 9.1 mg/dL (8.5-10.1); CHLORIDE 99 mmol/L (98-107); CO2 32 mmol/L (21-32); CREATININE 0.8 mg/dL (0.55-1.02); GLUCOSE,RANDOM 125 mg/dL (74-106); POTASSIUM 4.5 mmol/L (3.5-5.1); SODIUM 137 mmol/L (136-145)
--- NOTE | 2017-10-03 07:40 | PN ---
Progress Note (short form) - Note Progress Note: Chief complaint: Events noted, notes reviewed, denies any recurrent chest discomfort, denies any dyspnea, denies any abdominal discomfort, requesting again to be D/C home History of Present Illness: Seen and examined on telemetry. Events noted, notes reviewed, denies any recurrent chest discomfort, denies any dyspnea, denies any abdominal discomfort , requesting again to be D/C home Echocardiography dated September 28, 2017 revealed normal LV size with moderately decreased LVEF 40% and apical akinesis, mild MR, TR, trace AI, RVSP 50-60 mmHg Left heart cardiac catheterization coronary angiography performed October 19, 2013 revealed normal left ventricular systolic function with estimated left ventricular ejection fraction of 60%, 70% LAD-D1 lesion for medical management. Carotid Doppler study performed May 25, 2013 revealed mild degree of atherosclerotic plaque bilaterally with no evidence of hemodynamically significant stenosis. Echocardiography performed May 25, 2013 revealed overall preserved left ventricular systolic function, mitral annular calcification, aortic valve leaflet sclerosis, left atrial dilatation measuring 4.3 cm, mild mitral and tricuspid valve regurgitation with calculated RVSP of 39 mmHg. Pharmacologic (Dipyridamole) myocardial perfusion imaging study performed June 06, 2013 revealed moderate size inferior wall defect compatible with mild ischemia with normal left ventricular contraction pattern on LV gated analysis with calculated left ventricular ejection fraction of 88%. Medical therapy currently includes: Current Medications Acetaminophen (Tylenol -) 650 mg PO Q4H PRN PRN Reason: PAIN 1-3 Last Admin: 10/03/17 06:12 Dose: 650 mg Aspirin (Ecotrin -) 81 mg PO DAILY [facility] Last Admin: 10/02/17 09:29 Dose: 81 mg Atorvastatin Calcium (Lipitor -) 40 mg PO HS [facility] Last Admin: 10/02/17 21:46 Dose: 40 mg Clopidogrel Bisulfate (Plavix -) 75 mg PO DAILY [facility] Last Admin: 10/02/17 09:29 Dose: 75 mg Furosemide (Lasix -) 40 mg PO DAILY [facility] Last Admin: 10/02/17 09:29 Dose: 40 mg Isosorbide Mononitrate (Imdur -) 30 mg PO DAILY [facility] Last Admin: 10/02/17 09:39 Dose: 30 mg Levothyroxine Sodium (Synthroid Injection -) 37.5 mcg IVPUSH DAILY [facility] Last Admin: 10/02/17 13:37 Dose: Not Given Losartan Potassium (Cozaar -) 50 mg PO DAILY [facility] Last Admin: 10/02/17 09:28 Dose: 50 mg Methylnaltrexone [place] (Relistor -) 12 mg SQ DAILY [facility] Last Admin: 10/02/17 09:30 Dose: 12 mg Metoprolol Succinate (Toprol Xl -) 100 mg PO DAILY [facility] Last Admin: 10/02/17 09:29 Dose: 100 mg Oxycodone HCl (Roxicodone -) 15 mg PO Q8H PRN PRN Reason: PAIN SCALE 6-10 Last Admin: 10/03/17 02:20 Dose: 15 mg Pantoprazole Sodium (Protonix -) 40 mg PO DAILY [facility] Last Admin: 10/02/17 09:34 Dose: 40 mg Potassium Phos/Sodium Phos (Phos-Nak Packet -) 1 packet PO TID [facility] Last Admin: 10/03/17 06:13 Dose: 1 packet Ranolazine (Ranexa -) 500 mg PO BID [facility] Last Admin: 10/02/17 22:30 Dose: 500 mg Spironolactone (Aldactone -) 50 mg PO DAILY [facility] Last Admin: 10/02/17 09:34 Dose: 50 mg Review of Systems: Constitutional: Denies fever, chills or weight loss Head and Neck: Denies headache, photophobia or blurring of vision Respiratory: Denies cough or sputum production Cardiovascular: As noted above Gastrointestinal: Denies nausea, vomiting, diarrhea, constipation or abdominal discomfort Genitourinary: Denies frequency, urgency or hesitancy Musculoskeletal: Persistent left hip discomfort Endocrine: Hypothyroidism Physical Examination: Vital Signs: Last Vital Signs Temp Pulse Resp BP Pulse Ox 98.3 F 73 12 158/80 96 10/02/17 13:53 10/02/17 22:00 10/02/17 22:00 10/02/17 22:00 10/02/17 20:39 Intake & Output 09/30/17 10/01/17 10/02/17 10/03/17 23:59 23:59 23:59 23:59 Intake Total 800 560 600 Output Total 1 Balance 799 560 600 Weight 165 lb 3.2 oz 165 lb Neck: Supple negative JVD no bruit appreciated Heart: S1 and S2 regular no murmurs clicks or gallops Lungs: Diminished Breath Sounds at the Bases Abdomen: Soft benign normoactive bowel sounds no organomegaly Extremities: Negative edema 2+ distal pulses no calf tenderness Lab Data: CBC, BMP 10/03/17 05:30 10/03/17 05:30 Hepatic Panel Total Bilirubin 0.5 mg/dL (0.2-1.0) 10/01/17 05:30 AST 18 U/L (15-37) 10/01/17 05:30 ALT 21 U/L (12-78) 10/01/17 05:30 Alkaline Phosphatase 47 U/L (45-117) 10/01/17 05:30 Albumin 3.0 g/dl (3.4-5.0) L 10/01/17 05:30 ASSESSMENT: 1. Coronary artery disease post recent anterior wall non-ST segment elevation myocardial infarction versus [place] apical ballooning syndrome angina pectoris (Troponin I noted). 2. Systolic/diastolic left ventricular dysfunction with clinical class I-II [place] [employer] classification left ventricular failure, clinically resolved. 3. Mitral valve regurgitation mild in severity of no clinical significance. 4. Tricuspid valve regurgitation mild in severity with RVSP between 50-60 mmHg on echocardiography performed September 28, 2017. 5. Hypertensive cardiovascular disease labile blood pressure. 6. Hypercholesterolemia. 7. Abnormal hemoglobin A1C. 8. Carotid stenosis mild in severity, asymptomatic. 9. Hypothyroidism. 10. Post small bowel obstruction. 11. History of degenerative joint disease with chronic pain syndrome. 12. History of anxiety disorder. PLAN: 1. Continue Toprol-XL therapy. 2. Continue Losartan therapy. 3. Continue Nitrates and Ranexa with caution. 4. Continue Lipitor. 5. Continuation of Aspirin and Plavix with caution. 6. Continue Lasix and Aldactone. 7. As outlined in prior notes considering patient's advanced age, comorbidities and current presentation would recommend conservative medical management unless symptoms persist and/or progress. 8. Discharge planning. Jose Goldstein M.D.
[2017-10-03] MEDS ORDERED: PT OWN MED DRAWER 7, Y5N ONE (08:57)
[2017-10-03] MEDS: RANOLAZINE E.R. 500 MG TABLET (FP) PO SCH ×2 (09:33→21:19)
[2017-10-03] MEDS: SPIRONOLACTONE 25 MG TABLET (FP) PO SCH (09:34)
[2017-10-03] MEDS: FUROSEMIDE 40 MG TABLET (FP) PO SCH (09:34)
[2017-10-03] MEDS: ISOSORBIDE MONONITRATE 30 MG TAB.SR.24H (FP) PO SCH (09:35)
[2017-10-03] MEDS: CLOPIDOGREL BISULFATE 75 MG TABLET (FP) PO SCH (09:35)
[2017-10-03] MEDS: LOSARTAN POTASSIUM 25 MG TABLET PO SCH (09:35)
[2017-10-03] MEDS: ASPIRIN COATED 81 MG TABLET.EC PO SCH (09:37)
[2017-10-03] MEDS: Methylnaltrexone Bromide 12 MG/0.6 ML KIT SQ SCH (09:37)
[2017-10-03] MEDS: PANTOPRAZOLE 40 MG TABLET (FP) PO SCH (09:37)
[2017-10-03] MEDS: LEVOTHYROXINE SODIUM 100 MCG VIAL IVPUSH SCH (09:40)
--- NOTE | 2017-10-03 11:23 | PN ---
Progress Note, Physician History of Present Illness: pulmonary alert,no distress,-cp,-sob - Current Medication List Current Medications: Active Medications Acetaminophen (Tylenol -) 650 mg PO Q4H PRN PRN Reason: PAIN 1-3 Last Admin: 10/03/17 06:12 Dose: 650 mg Aspirin (Ecotrin -) 81 mg PO DAILY [facility] Last Admin: 10/03/17 09:37 Dose: 81 mg Atorvastatin Calcium (Lipitor -) 40 mg PO HS [facility] Last Admin: 10/02/17 21:46 Dose: 40 mg Clopidogrel Bisulfate (Plavix -) 75 mg PO DAILY [facility] Last Admin: 10/03/17 09:35 Dose: 75 mg Furosemide (Lasix -) 40 mg PO DAILY [facility] Last Admin: 10/03/17 09:34 Dose: 40 mg Isosorbide Mononitrate (Imdur -) 30 mg PO DAILY [facility] Last Admin: 10/03/17 09:35 Dose: 30 mg Levothyroxine Sodium (Synthroid Injection -) 37.5 mcg IVPUSH DAILY [facility] Last Admin: 10/03/17 09:40 Dose: 37.5 mcg Losartan Potassium (Cozaar -) 50 mg PO DAILY [facility] Last Admin: 10/03/17 09:35 Dose: 50 mg Methylnaltrexone [place] (Relistor -) 12 mg SQ DAILY [facility] Last Admin: 10/03/17 09:37 Dose: 12 mg Metoprolol Succinate (Toprol Xl -) 100 mg PO DAILY [facility] Last Admin: 10/03/17 09:35 Dose: 100 mg Oxycodone HCl (Roxicodone -) 15 mg PO Q8H PRN PRN Reason: PAIN SCALE 6-10 Last Admin: 10/03/17 09:44 Dose: 15 mg Pantoprazole Sodium (Protonix -) 40 mg PO DAILY [facility] Last Admin: 10/03/17 09:37 Dose: 40 mg Potassium Phos/Sodium Phos (Phos-Nak Packet -) 1 packet PO TID [facility] Last Admin: 10/03/17 06:13 Dose: 1 packet Ranolazine (Ranexa -) 500 mg PO BID [facility] Last Admin: 10/03/17 09:33 Dose: 500 mg Spironolactone (Aldactone -) 50 mg PO DAILY [facility] Last Admin: 10/03/17 09:34 Dose: 50 mg - Objective Vital Signs: Vital Signs Temperature 98.0 F 10/03/17 10:00 Pulse Rate 73 10/03/17 10:00 Respiratory Rate 18 10/03/17 10:00 Blood Pressure 147/90 10/03/17 10:00 O2 Sat by Pulse Oximetry (%) 100 10/03/17 09:00 Constitutional: Yes: Well Nourished, Calm Eyes: Yes: WNL HENT: Yes: WNL Neck: Yes: WNL Cardiovascular: Yes: Regular Rate and Rhythm, S1, S2 Respiratory: Yes: Diminished Gastrointestinal: Yes: Normal Bowel Sounds, Soft Extremities: Yes: WNL Edema: No Labs: CBC, BMP 10/03/17 05:30 10/03/17 05:30 Problem List - Problems (1) Pulmonary hypertension Code(s): I27.20 - PULMONARY HYPERTENSION, UNSPECIFIED (2) Abdominal pain Code(s): R10.9 - UNSPECIFIED ABDOMINAL PAIN Qualifiers: Abdominal location: generalized Qualified Code(s): R10.84 - Generalized abdominal pain (3) Acute [place] anterior wall subsequent episode care Code(s): I21.09 - STEMI INVOLVING OTH CORONARY ARTERY OF ANTERIOR WALL (4) CHF (congestive heart failure) Code(s): I50.9 - HEART FAILURE, UNSPECIFIED (5) Constipation due to opioid therapy Code(s): K59.03 - DRUG INDUCED CONSTIPATION; T40.2X5A - ADVERSE EFFECT OF OTHER OPIOIDS, INITIAL ENCOUNTER (6) Non-ST elevation [place] (NSTEMI) Code(s): I21.4 - NON-ST ELEVATION (NSTEMI) MYOCARDIAL INFARCTION (7) Small bowel obstruction Code(s): K56.609 - UNSP INTESTNL OBST, UNSP TO PARTIAL VERSUS COMPLETE OBST (8) ACS (acute coronary syndrome) Code(s): I24.9 - ACUTE ISCHEMIC HEART DISEASE, UNSPECIFIED (9) Acute on chronic systolic and diastolic heart failure, NYHA class 3 Code(s): I50.43 - ACUTE ON CHRONIC COMBINED SYSTOLIC AND DIASTOLIC HRT FAIL (10) Hypertension Code(s): I10 - ESSENTIAL (PRIMARY) HYPERTENSION Qualifiers: Hypertension type: essential hypertension Qualified Code(s): I10 - Essential (primary) hypertension Assessment/Plan ASSESSMENT AND PLAN: Partial Small Bowel Obstruction resolved Acute NSTEMI Acute Systolic Heart Failure Pulmonary HTN Opiate Dependence Fecal Impaction Diverticulosis Lactic Acidosis HTN Hypothyroidism - ASA, plavix - beta felix, statin - lasix - monitor urine output, creatinine - pain control - bowel regimen - PO as tolerated - continue relistor - s/p empiric antibiotics - DVT prophylaxis - chest x-ray DR ELLIOTT
--- NOTE | 2017-10-03 13:32 | PN ---
Progress Note, Physician Chief Complaint: AWAKE ALERT MILD TO MODERATE DISTRESS C/O PAIN - Current Medication List Current Medications: Active Medications Acetaminophen (Tylenol -) 650 mg PO Q4H PRN PRN Reason: PAIN 1-3 Last Admin: 10/03/17 06:12 Dose: 650 mg Aspirin (Ecotrin -) 81 mg PO DAILY [facility] Last Admin: 10/03/17 09:37 Dose: 81 mg Atorvastatin Calcium (Lipitor -) 40 mg PO HS [facility] Last Admin: 10/02/17 21:46 Dose: 40 mg Clopidogrel Bisulfate (Plavix -) 75 mg PO DAILY [facility] Last Admin: 10/03/17 09:35 Dose: 75 mg Furosemide (Lasix -) 40 mg PO DAILY [facility] Last Admin: 10/03/17 09:34 Dose: 40 mg Isosorbide Mononitrate (Imdur -) 30 mg PO DAILY [facility] Last Admin: 10/03/17 09:35 Dose: 30 mg Levothyroxine Sodium (Synthroid Injection -) 37.5 mcg IVPUSH DAILY [facility] Last Admin: 10/03/17 09:40 Dose: 37.5 mcg Losartan Potassium (Cozaar -) 50 mg PO DAILY [facility] Last Admin: 10/03/17 09:35 Dose: 50 mg Methylnaltrexone [place] (Relistor -) 12 mg SQ DAILY [facility] Last Admin: 10/03/17 09:37 Dose: 12 mg Metoprolol Succinate (Toprol Xl -) 100 mg PO DAILY [facility] Last Admin: 10/03/17 09:35 Dose: 100 mg Oxycodone HCl (Roxicodone -) 15 mg PO Q8H PRN PRN Reason: PAIN SCALE 6-10 Last Admin: 10/03/17 09:44 Dose: 15 mg Pantoprazole Sodium (Protonix -) 40 mg PO DAILY [facility] Last Admin: 10/03/17 09:37 Dose: 40 mg Potassium Phos/Sodium Phos (Phos-Nak Packet -) 1 packet PO TID [facility] Last Admin: 10/03/17 06:13 Dose: 1 packet Ranolazine (Ranexa -) 500 mg PO BID [facility] Last Admin: 10/03/17 09:33 Dose: 500 mg Spironolactone (Aldactone -) 50 mg PO DAILY [facility] Last Admin: 10/03/17 09:34 Dose: 50 mg - Objective Vital Signs: Vital Signs Temperature 98.0 F 08/26/18 10:00 Pulse Rate 73 10/03/17 10:00 Respiratory Rate 18 10/03/17 10:00 Blood Pressure 147/90 10/03/17 10:00 O2 Sat by Pulse Oximetry (%) 100 10/03/17 09:00 Constitutional: Yes: Mild Distress Eyes: Yes: WNL HENT: Yes: WNL Neck: Yes: WNL Cardiovascular: Yes: WNL Respiratory: Yes: WNL Gastrointestinal: Yes: WNL Genitourinary: Yes: WNL Musculoskeletal: Yes: Back Pain, Muscle Weakness Extremities: Yes: WNL Edema: No Peripheral Pulses WNL: Yes Integumentary: Yes: WNL Wound/Incision: Yes: Clean/Dry Neurological: Yes: Pre-Existing Deficit ...Motor Strength: LLE, RLE Psychiatric: Yes: Other Labs: CBC, BMP 10/03/17 05:30 10/03/17 05:30 Problem List - Problems (1) Abdominal pain Code(s): R10.9 - UNSPECIFIED ABDOMINAL PAIN Qualifiers: Abdominal location: generalized Qualified Code(s): R10.84 - Generalized abdominal pain (2) Acute [place] anterior wall subsequent episode care Code(s): I21.09 - STEMI INVOLVING OTH CORONARY ARTERY OF ANTERIOR WALL (3) Acute on chronic systolic and diastolic heart failure, NYHA class 3 Code(s): I50.43 - ACUTE ON CHRONIC COMBINED SYSTOLIC AND DIASTOLIC HRT FAIL (4) Constipation due to opioid therapy Code(s): K59.03 - DRUG INDUCED CONSTIPATION; T40.2X5A - ADVERSE EFFECT OF OTHER OPIOIDS, INITIAL ENCOUNTER (5) Hypertension Code(s): I10 - ESSENTIAL (PRIMARY) HYPERTENSION Qualifiers: Hypertension type: essential hypertension Qualified Code(s): I10 - Essential (primary) hypertension (6) Non-ST elevation [place] (NSTEMI) Code(s): I21.4 - NON-ST ELEVATION (NSTEMI) MYOCARDIAL INFARCTION Assessment/Plan MONITOR ON TELEMETRY LDL CONTROL GOAL <70 ASA/PLAVIX PT EVAL PAIN CONTROL RELISTOR FOR OPIOD BOWEL CARDIOLOGY EVAL
[2017-10-03] MEDS: ATORVASTATIN CA 40 MG TABLET (FP) PO SCH (21:19)
[2017-10-04] MEDS: oxyCODONE HCL 5 MG TABLET PO PRN ×2 (00:01→07:12)
[2017-10-04] MEDS: ACETAMINOPHEN 325 MG TABLET (FP) PO PRN ×2 (05:29→10:48)
[2017-10-04] MEDS: NAPH,MB-DB/K PH,MBDB POWDER PACKET PO SCH (05:29)
[2017-10-04] MEDS ORDERED: LEVOTHYROXINE SODIUM 100 MCG VIAL IVPUSH SCH ×2 (06:30)
--- NOTE | 2017-10-04 06:54 | PN ---
Progress Note (short form) - Note Progress Note: Chief complaint: Events noted, notes reviewed, denies any recurrent chest discomfort, denies any dyspnea, denies any abdominal discomfort, hip pain persists (chronic), requesting again to be D/C home History of Present Illness: Seen and examined on telemetry. Events noted, notes reviewed, denies any recurrent chest discomfort, denies any dyspnea, denies any abdominal discomfort , hip pain persists (chronic), requesting again to be D/C home Patient was advised to continue current prescribed therapies upon D/C and F/U in the office in 1-2 week Echocardiography dated September 28, 2017 revealed normal LV size with moderately decreased LVEF 40% and apical akinesis, mild MR, TR, trace AI, RVSP 50-60 mmHg Left heart cardiac catheterization coronary angiography performed October 19, 2013 revealed normal left ventricular systolic function with estimated left ventricular ejection fraction of 60%, 70% LAD-D1 lesion for medical management. Carotid Doppler study performed May 25, 2013 revealed mild degree of atherosclerotic plaque bilaterally with no evidence of hemodynamically significant stenosis. Echocardiography performed May 25, 2013 revealed overall preserved left ventricular systolic function, mitral annular calcification, aortic valve leaflet sclerosis, left atrial dilatation measuring 4.3 cm, mild mitral and tricuspid valve regurgitation with calculated RVSP of 39 mmHg. Pharmacologic (Dipyridamole) myocardial perfusion imaging study performed June 06, 2013 revealed moderate size inferior wall defect compatible with mild ischemia with normal left ventricular contraction pattern on LV gated analysis with calculated left ventricular ejection fraction of 88%. Medical therapy currently includes: Current Medications Acetaminophen (Tylenol -) 650 mg PO Q4H PRN PRN Reason: PAIN 1-3 Last Admin: 10/04/17 05:29 Dose: 650 mg Aspirin (Ecotrin -) 81 mg PO DAILY [facility] Last Admin: 10/03/17 09:37 Dose: 81 mg Atorvastatin Calcium (Lipitor -) 40 mg PO HS [facility] Last Admin: 10/03/17 21:19 Dose: 40 mg Clopidogrel Bisulfate (Plavix -) 75 mg PO DAILY [facility] Last Admin: 10/03/17 09:35 Dose: 75 mg Furosemide (Lasix -) 40 mg PO DAILY [facility] Last Admin: 10/03/17 09:34 Dose: 40 mg Isosorbide Mononitrate (Imdur -) 30 mg PO DAILY [facility] Last Admin: 10/03/17 09:35 Dose: 30 mg Levothyroxine Sodium (Synthroid Injection -) 37.5 mcg IVPUSH DAILY [facility] Last Admin: 10/04/17 06:27 Dose: 37.5 mcg Losartan Potassium (Cozaar -) 50 mg PO DAILY [facility] Last Admin: 10/03/17 09:35 Dose: 50 mg Methylnaltrexone [place] (Relistor -) 12 mg SQ DAILY [facility] Last Admin: 10/03/17 09:37 Dose: 12 mg Metoprolol Succinate (Toprol Xl -) 100 mg PO DAILY [facility] Last Admin: 10/03/17 09:35 Dose: 100 mg Oxycodone HCl (Roxicodone -) 15 mg PO Q8H PRN PRN Reason: PAIN SCALE 6-10 Last Admin: 10/04/17 00:01 Dose: 15 mg Pantoprazole Sodium (Protonix -) 40 mg PO DAILY [facility] Last Admin: 10/03/17 09:37 Dose: 40 mg Potassium Phos/Sodium Phos (Phos-Nak Packet -) 1 packet PO TID [facility] Last Admin: 10/04/17 05:29 Dose: 1 packet Ranolazine (Ranexa -) 500 mg PO BID [facility] Last Admin: 10/03/17 21:19 Dose: 500 mg Spironolactone (Aldactone -) 50 mg PO DAILY [facility] Last Admin: 10/03/17 09:34 Dose: 50 mg Review of Systems: Constitutional: Denies fever, chills or weight loss Head and Neck: Denies headache, photophobia or blurring of vision Respiratory: Denies cough or sputum production Cardiovascular: As noted above Gastrointestinal: Denies nausea, vomiting, diarrhea, constipation or abdominal discomfort Genitourinary: Denies frequency, urgency or hesitancy Musculoskeletal: Persistent left hip discomfort Endocrine: Hypothyroidism Physical Examination: Vital Signs: Last Vital Signs Temp Pulse Resp BP Pulse Ox 97.5 F L 77 20 109/97 100 10/04/17 05:35 10/04/17 05:35 10/04/17 05:35 10/04/17 05:35 10/03/17 22:00 Intake & Output 10/01/17 10/02/17 10/03/17 10/04/17 23:59 23:59 23:59 23:59 Intake Total 560 600 150 50 Balance 560 600 150 50 Weight 165 lb 3.2 oz 165 lb Neck: Supple negative JVD no bruit appreciated Heart: S1 and S2 regular no murmurs clicks or gallops Lungs: Diminished Breath Sounds at the Bases Abdomen: Soft benign normoactive bowel sounds no organomegaly Extremities: Negative edema 2+ distal pulses no calf tenderness Lab Data: CBC, BMP 10/03/17 05:30 10/03/17 05:30 Hepatic Panel Total Bilirubin 0.5 mg/dL (0.2-1.0) 10/01/17 05:30 AST 18 U/L (15-37) 10/01/17 05:30 ALT 21 U/L (12-78) 10/01/17 05:30 Alkaline Phosphatase 47 U/L (45-117) 10/01/17 05:30 Albumin 3.0 g/dl (3.4-5.0) L 10/01/17 05:30 ASSESSMENT: 1. Coronary artery disease post recent anterior wall non-ST segment elevation myocardial infarction versus Tak[place]subo apical ballooning syndrome angina pectoris, stable on medical therapy. 2. Systolic/diastolic left ventricular dysfunction with clinical class I-II [place] Heart Association classification left ventricular failure, clinically compensated/euvolemic. 3. Mitral valve regurgitation mild in severity of no clinical significance. 4. Tricuspid valve regurgitation mild in severity with RVSP between 50-60 mmHg on echocardiography performed September 28, 2017. 5. Hypertensive cardiovascular disease labile blood pressure, controlled. 6. Hypercholesterolemia. 7. Abnormal hemoglobin A1C. 8. Carotid stenosis mild in severity, asymptomatic. 9. Hypothyroidism. 10. Post small bowel obstruction, resolved. 11. History of degenerative joint disease with chronic pain syndrome ( persistent pain). 12. History of anxiety disorder. PLAN: 1. Continue Toprol-XL therapy. 2. Continue Losartan therapy. 3. Continue Nitrates and Ranexa with caution. 4. Continue Lipitor. 5. Continuation of Aspirin and Plavix with caution. 6. Continue Lasix and Aldactone but decrease dose of Aldactone therapy. 7. As outlined in prior notes considering patient's advanced age, comorbidities and current presentation would recommend conservative medical management unless symptoms persist and/or progress. 8. Discharge planning. Jose Goldstein M.D.
[2017-10-04] MEDS ORDERED: SPIRONOLACTONE 25 MG TABLET (FP) PO SCH (06:59)
--- NOTE | 2017-10-04 08:25 | DS ---
Physical Examination Vital Signs: Vital Signs Temperature 97.5 F L 10/04/17 05:35 Pulse Rate 77 10/04/17 05:35 Respiratory Rate 20 10/04/17 05:35 Blood Pressure 109/97 10/04/17 05:35 O2 Sat by Pulse Oximetry (%) 100 10/03/17 22:00 Cardiovascular: Yes: S1, S2 Respiratory: Yes: Regular, CTA Bilaterally Gastrointestinal: Yes: Normal Bowel Sounds, Soft Labs: CBC, BMP 10/03/17 05:30 10/03/17 05:30 Discharge Summary Reason For Visit: SMALL BOWEL OBSTRUCTION Current Active Problems Abdominal pain (Acute) Acute TN anterior wall subsequent episode care (Acute) Acute on chronic systolic and diastolic heart failure, NYHA class 3 (Acute) CHF (congestive heart failure) (Acute) Constipation due to opioid therapy (Acute) Hiatal hernia (Acute) History of colon polyps (Acute) Hypertension (Acute) Hypothyroidism (Acute) Macular degeneration (Acute) Non-ST elevation TN (NSTEMI) (Acute) Porcelain gallbladder (Acute) Pulmonary hypertension (Acute) Small bowel obstruction (Acute) Hospital Course: - Problems (1) Non-ST elevation TN (NSTEMI) Assessment/Plan: -Coronary artery disease post recent anterior wall non-ST segment elevation myocardial infarction versus Tak[place]subo apical ballooning syndrome angina pectoris, stable on medical therapy. - cont diuresis - cont imdur, ranexa, and BB - cont asa and plavix - losartan with titration - LDL 35 , cont statin 40 mg Code(s): I21.4 - NON-ST ELEVATION (NSTEMI) MYOCARDIAL INFARCTION (2) CHF (congestive heart failure) Assessment/Plan: -Systolic/diastolic left ventricular dysfunction with clinical class I-II [place] Heart Association classification left ventricular failure, clinically compensated/euvolemic. -po Diuretics -after TN. EF 40 %. - spironolactone - ARB. Code(s): I50.9 - HEART FAILURE, UNSPECIFIED (3) Hypertension Assessment/Plan: -Monitor BP Code(s): I10 - ESSENTIAL (PRIMARY) HYPERTENSION Qualifiers: Hypertension type: essential hypertension Qualified Code(s): I10 - Essential (primary) hypertension (4) Small bowel obstruction Assessment/Plan: - cont current diet - monitor bowel movement . hold miralax due to diarrhea Code(s): K56.609 - UNSP INTESTNL OBST, UNSP TO PARTIAL VERSUS COMPLETE OBST (5) Valvular heart disease -monitor---mild (4) Hypothyroidism. -Monitor on current meds (4) HLD -Continue Lipitor. l Condition: Improved - Instructions Diet, Activity, Other Instructions: Blood test in one week to check on kidney and potassium Referrals: Nathan Blackburn MD [Primary Care Provider] - 1 Week - Home Medications Comprehensive Discharge Medication List: Ambulatory Orders Levothyroxine Sodium [Levoxyl] 75 mcg PO DAILY 09/24/17 Metoprolol Succinate [Toprol Xl] 100 mg PO DAILY 09/26/17 Oxycodone HCl/Acetaminophen [Percocet 10-325 mg Tablet] 1 each PO TID PRN Aspirin Coated [Ecotrin -] 81 mg PO DAILY tablet.ec 10/04/17 Atorvastatin Ca [Lipitor] 40 mg PO HS #30 tablet 10/04/17 Clopidogrel Bisulfate [Plavix -] 75 mg PO DAILY #30 tablet 10/04/17 Furosemide [Lasix -] 40 mg PO DAILY #30 tablet 10/04/17 Isosorbide Mononitrate [Imdur -] 30 mg PO DAILY #30 tab.sr.24h 10/04/17 Losartan Potassium [Cozaar -] 50 mg PO DAILY #30 tablet 10/04/17 Methylnaltrexone [place] [Relistor -] 12 mg SQ DAILY #30 kit 10/04/17 Naph,Mb-Db/K pH,Mbdb [PHOS-NaK PACKET -] 1 packet PO TID #90 pow 10/04/17 Pantoprazole Sodium [Protonix -] 40 mg PO DAILY #30 tablet.ec 10/04/17 Ranolazine [Ranexa -] 500 mg PO BID #60 tab 10/04/17 Spironolactone [Aldactone -] 50 mg PO DAILY #60 tablet 10/04/17
[2017-10-04] MEDS: PANTOPRAZOLE 40 MG TABLET (FP) PO SCH (10:16)
[2017-10-04] MEDS: LOSARTAN POTASSIUM 25 MG TABLET PO SCH (10:16)
[2017-10-04] MEDS: FUROSEMIDE 40 MG TABLET (FP) PO SCH (10:16)
[2017-10-04] MEDS: RANOLAZINE E.R. 500 MG TABLET (FP) PO SCH (10:17)
[2017-10-04] MEDS: ISOSORBIDE MONONITRATE 30 MG TAB.SR.24H (FP) PO SCH (10:17)
[2017-10-04] MEDS: CLOPIDOGREL BISULFATE 75 MG TABLET (FP) PO SCH (10:17)
[2017-10-04] MEDS: ASPIRIN COATED 81 MG TABLET.EC PO SCH (10:17)
[2017-10-04] MEDS: Methylnaltrexone Bromide 12 MG/0.6 ML KIT SQ SCH (10:18)
[2017-10-04 11:38] VITALS: BP 106/87; PULSE 87; TEMP 97.8
== END 2017-10-04 11:08 | disposition home or self-care (01) | DRG 388 ==
LOC: JER 17:03 → JERBED 22:27 → J7W 09-25 07:08 → JICU 09-25 12:45 → J2W 09-30 18:47
PROVIDERS: ADMIT Internal Medicine; ATTEND Family Medicine
PROC: 0D9670Z Drainage of Stomach with Drainage Device, Via Natural or Artificial Opening (ICD-10-PCS; principal; 2017-09-25)
DX: K56.690 Other partial intestinal obstruction (principal); I50.43 Acute on chronic combined systolic (congestive) and diastolic (congestive) heart failure; I21.4 Non-ST elevation (NSTEMI) myocardial infarction; N17.9 Acute kidney failure, unspecified; E87.2 Acidosis; D72.829 Elevated white blood cell count, unspecified; E03.9 Hypothyroidism, unspecified; E86.0 Dehydration; I11.0 Hypertensive heart disease with heart failure; K44.9 Diaphragmatic hernia without obstruction or gangrene; I27.20 Pulmonary hypertension, unspecified; H35.30 Unspecified macular degeneration; K56.41 Fecal impaction; R07.9 Chest pain, unspecified; E83.42 Hypomagnesemia; K57.90 Diverticulosis of intestine, part unspecified, without perforation or abscess without bleeding; T40.2X5A Adverse effect of other opioids, initial encounter; K59.03 Drug induced constipation; E87.6 Hypokalemia
CPT/HCPCS: 36415; 71045-TC-FY; 74018-TC-FY; 74019-TC-FY; 74177-TC; 80048; 80053; 80061; 81003; 81015; 82550; 83605; 83690; 83721; 83735; 84100; 84484; 85025; 85027; 85730; 87045; 87046; 87086; 87205; 87324; 87449; 93005; 93010; 93306-TC; 97116-GP; 97162-GP; 99285-25; J0131; J1644